=== PATIENT | male | born 1955 | race Caucasian/White ===

== ENCOUNTER 2019-04-01 10:07 | Outpatient (RCR) | payer MEDICAID, SELFPAY ==
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
== END 2019-04-01 10:10 | disposition home or self-care (01) ==
LOC: OT 10:07
PROVIDERS: Visit Provider Orthopaedic Surgery
DX: M25.511 Pain in right shoulder (principal)
CPT/HCPCS: 97165

== ENCOUNTER 2019-07-03 20:56 | Inpatient (IN) ==
[2019-07-03 21:34] LABS: Microscopic, Urine URINE MICROSCOPIC (MICROSCOPIC)
[2019-07-03 21:38] LABS: Basophils % 0.1 % (0.1-2.0); Eosinophils % 0.4 % (0.1-12.0); Hemoglobin 14.1 g/dL (14.1-18.0); Lymphocytes # 0.5 K/mm3 (0.7-4.5); Mean Corpuscular HGB Conc 34.5 g/dL (31.8-35.4); Mean Corpuscular Volume 92.6 fl (80-94); Mean Platelet Volume 7.6 fl (7.4-10.4); Monocytes # 0.2 K/mm3 (0.1-1.0); Monocytes % 2.5 % (1.7-9.3); Neutrophils # 6.5 K/mm3 (1.8-7.8); Platelet Count 261 K/mm3 (142-424); Red Blood Count 4.43 M/mm3 (4.60-6.20); Red Cell Distribution Width 12.3 % (11.5-17.5); White Blood Count 7.3 K/mm3 (4.8-10.8)
[2019-07-03 21:53] LABS: Albumin Level 3.3 gm/dL (3.4-5.0); Albumin/Globulin Ratio 0.8 (1.1-1.8); Anion Gap 16.3 mEq/L (5-15); Bilirubin,Total 1.4 mg/dL (0.2-1.0); Calcium 9.5 mg/dL (8.5-10.1); Globulin 4.1 gm/dl (1.3-3.2); Total Protein,Serum 7.4 gm/dL (6.4-8.2)
[2019-07-03 21:55] LABS: Appearance,Urine CLEAR (Clear); Bilirubin,Urine Negative (Negative); Blood, Urine 3+ (Negative); Color,Urine ORANGE (Yellow); Glucose,Urine (UA) 3+ (Negative); Ketones,Urine Negative (Negative); Leukocyte Esterase,Urine 1+ (Negative); Protein,Urine 2+ (Negative); Specific Gravity, Urine 1.015 (1.005-1.030)
--- NOTE | 2019-07-03 22:21 | Emergency Department Note ---
ED Disposition Clinical Impression: Hyperglycemia Sepsis Qualifiers: Sepsis type: sepsis due to unspecified organism Sepsis acute organ dysfunction status: without acute organ dysfunction Qualified Code(s): A41.9 - Sepsis, unspecified organism Urinary tract infection Qualifiers: Urinary tract infection type: site unspecified Hematuria presence: without hematuria Qualified Code(s): N39.0 - Urinary tract infection, site not specified Disposition: Admitted As Inpatient Condition on Discharge: Serious - Critical Care Critical Care Time: No Attestation: On 07/03/19, the high probability of a clinically significant, sudden or life threatening deterioration of the following system(s) required my full and direct attention, intervention and personal management. The time I documented below is in addition to time spent performing reported procedures but includes the following listed in this critical care notation. Medical Decision Making - Jcarlos Inquiry Pt receiving controlled substance: No Vital Signs: 07/03/19 21:04 07/03/19 22:14 07/03/19 23:09 Temperature 102.9 F H 100.0 F H Temperature Source Oral Oral Pulse Rate [Right Brachial] 125 H 109 H 106 H Respiratory Rate 22 20 18 Blood Pressure [Right Arm] 109/76 L 101/54 L 118/65 Blood Pressure Mean [Right Arm] 87 69 82 Blood Pressure Source [Right Arm] Automatic Cuff Automatic Cuff Automatic Cuff Blood Pressure Position [Right Arm] Sitting Sitting Sitting 02 Sat by Pulse Oximetry 95 95 95 Oxygen Delivery Method Room Air Room Air Room Air 07/03/19 23:30 07/04/19 00:35 Temperature 98.4 F 98.5 F Temperature Source Oral Oral Pulse Rate [Right Brachial] 54 L 97 H Respiratory Rate 18 18 Blood Pressure [Right Arm] 144/69 H 118/68 Blood Pressure Mean [Right Arm] 94 84 Blood Pressure Source [Right Arm] Automatic Cuff Blood Pressure Position [Right Arm] Sitting 02 Sat by Pulse Oximetry 99 95 Oxygen Delivery Method Room Air - Lab Data Lab Results 07/03/19 21:30: Urine Color [place], Urine Appearance Clear, Urine pH 8.0, Ur Specific [place] 1.015, Urine Protein 2+, Urine Glucose (UA) 3+, Urine Ketones Negative, Urine Blood 3+, Urine Nitrate Positive, Urine Bilirubin Negative, Urine Urobilinogen 1.0, Ur Leukocyte Esterase 1+ A, Urine RBC 5-10, Urine WBC Tntc, Urine Bacteria 3+ 07/03/19 21:30: WBC 7.3, RBC 4.43 L, Hgb 14.1, Hct 41.0 L, MCV 92.6, MCH 31.9 H, MCHC 34.5, RDW 12.3, Plt Count 261, MPV 7.6, Neut % (Auto) 90.0 H, Lymph % (Auto) 7.0 L, [place] % (Auto) 2.5, Eos % (Auto) 0.4, Baso % (Auto) 0.1, Neut # (Auto) 6.5, Lymph # (Auto) 0.5 L, [place] # (Auto) 0.2, Eos # (Auto) 0.0, Baso # (Auto) 0.0, Total Counted 100, Neutrophils % (Manual) 95 H, Lymphocytes % (Manual) 3 L, Eosinophils % (Manual) 1, Basophils % (Manual) 1.0, Platelet Estimate Normal, RBC Morphology Not Reportable, Anisocytosis 1+ 07/03/19 21:30: Sodium 134 L, Potassium 3.3 L, Chloride 97 L, Carbon Dioxide 24, Anion Gap 16.3 H, BUN 25 H, Creatinine 1.48 H, Estimated Creat Clear 78, Estimated GFR 48 L, Est GFR ( Amer) 58 L, Glucose 324 H, Calcium 9.5, Total Bilirubin 1.4 H, AST 28, ALT 36, Alkaline Phosphatase 178 H, Total Protein 7.4, Albumin 3.3 L, Globulin 4.1 H, Albumin/Globulin Ratio 0.8 L 07/03/19 21:30: Lactate 4.6 H 07/03/19 21:30: Troponin I < 0.02 Result diagrams: 07/03/19 21:30 07/03/19 21:30 Orders (Tests/Meds): ED MEDICATIONS Generic Name Dose Route Start Last Admin Trade Name Freq PRN Reason Stop Dose Admin Sodium Chloride 1,000 mls @ 999 mls/hr 07/03/19 21:30 07/03/19 21:31 Sod Chlor 0.9% 1000ml Bag IV 07/03/19 22:30 999 mls/hr .Q1H1M BEBE Administration Ceftriaxone Sodium 1 gm/ 50 mls @ 100 mls/hr 07/03/19 22:30 07/03/19 22:26 Sodium Chloride IV 07/17/19 22:29 Not Given Q24H BEBE Protocol Discontinued Medications Generic Name Dose Route Start Last Admin Trade Name Marleni PRN Reason Stop Dose Admin Acetaminophen 1,000 mg 07/03/19 21:30 07/03/19 21:31 Tylenol 500mg Tablet PO 07/03/19 21:31 1,000 mg ONCE ONE Administration Sodium Chloride 3,270 mls @ 1,635 mls/hr 07/03/19 22:06 07/03/19 22:14 Sod Chlor 0.9% 1000ml Bag 30 ml/kg infuse over 2 hr (3270 ml) 07/04/19 00:05 1,635 mls/hr IV Administration .Q2H ONE Ceftriaxone Sodium 1 gm/ 50 mls @ 100 mls/hr 07/03/19 22:21 07/03/19 22:26 Sodium Chloride IV 07/03/19 22:50 100 mls/hr ONCE ONE Administration Protocol Ibuprofen 800 mg 07/03/19 21:29 07/03/19 21:31 Motrin 400mg Tablet PO 07/03/19 21:30 800 mg ONCE ONE Administration ORDERS Category Date Time Status CT abdomen pelvis wo con Stat Cat Scan 07/03/19 22:34 Taken XR chest 2V Stat Exams 07/03/19 21:29 Taken Blood Culture Stat Micro 07/03/19 21:30 Received Urine Culture Stat Micro 07/03/19 21:30 Received - Radiology Data #1 Image(s): Chest Image Reviewed: Yes I reviewed the patient's radiology image Preliminary Findings: Normal/NAD - CT Data CT Scan: Abdomen, Pelvis Time Received: 23:[address] Reviewed: Yes: I have viewed the radiologist's interpretation Findings Narrative: CT scan interpreted by [facility] radiologist. Faxed report received and reviewed: Mild diffuse bladder wall thickening and mild perivesicular stranding can be seen with cystitis. Nonspecific mild bilateral perinephric stranding. Cholelithiasis. Hepatosplenomegaly. Enlarged prostate. - Physician Consults Physician Consulted: Tomas Time: 00:15 Reason -: Admission Comment/Response: Agrees to admit the patient to the hospital. We discussed the patient's clinical information, including history, exam, laboratory and radiology results and ED course. Per hospital procedure, I will write temporary bridge inpatient orders on the patient. Specific orders requested by the admitting physician: Continue fluids, antibiotics - Tissue Perfus/Sepsis Re-Eval Reperfusion Exam Performed: Yes Date Performed: 07/03/19 Time Performed: 23:57 Sepsis Follow-Up: Yes: Respiratory exam, Cardiovascular exam, Capillary refill, Peripheral pulse strength, Peripheral pulse location, Skin exam, Vital Signs General Adult HPI - General Chief complaint: Urogenital-Male Stated complaint: Fever, cold chills Time Seen by Provider: 07/03/19 22:20 Mode of Arrival: Wheelchair Limitations: No Limitations Description of Symptoms (Recalled from ER Triage Doc. by RN): Pt c/o fever and buring really bad pain when he urinates for about a month. He now states he is dizzy very unstable on his feet. Denies any other symptoms at this time. - History of Present Illness HPI narrative: Patient complains of difficulty urinating for several weeks. Since last week ago states that he finds it hard to urinate at all. He took Azo for couple of days which seemed to help. Today after taking a nap, he developed some severe rigors. Currently does not have any pain, says he "feels great". Does not currently have a physician. Surgery for colon and bladder cancer [facility] in 2009. - Related Data Home Medications Medication Instructions Recorded Confirmed No Known Home Medications 07/03/19 07/03/19 Allergies Allergy/AdvReac Type Severity Reaction Status Date / Time codeine [CODEINE] Allergy Mild Verified 03/21/19 13:28 levofloxacin [From LEVAQUIN] Allergy Mild Verified 03/21/19 13:28 [facility] History - Hepatitis A Screen Drug use history?: No High risk sexual behaviors?: No History of sexually transmitted infection?: No Currently employed?: No Childcare worker?: No Do you have indoor plumbing?: Yes Do you have electricity?: Yes Attestation statement:: This patient has been screened for Hepatitis A risk factors. I have reviewed the patient's past medical history: Yes Medical History: Reports:: Cancer Other Surgeries: Yes: Cancer Surgery - Social History Smoking Status: Never smoker Alcohol Intake: never Occupational Status: employed Housing: house ROS Obtained: Yes All systems reviewed & no additional complaints - Constitutional Constitutional: Reports chills - Cardiovascular Cardiovascular: Denies chest pain - Respiratory Respiratory: No dyspnea - Gastrointestinal Gastrointestingal: Reports: diarrhea, nausea, vomiting. Denies: abdominal pain - Genitourinary Male Genitourinary: Reports difficulty urinating, Denies flank pain - Neurologic Neurologic: Denies headache(s) Physical Exam - General General appearance: alert, in no apparent distress Comment: Diaphoretic - Head Head exam: atraumatic, normocephalic - ENT ENT exam: Present: mucous membranes moist - Neck Neck exam: Present: normal inspection, full ROM. Absent: meningismus - Chest Chest inspection: Present: normal inspection, symmetric chest wall rise - Respiratory Respiratory exam: Present: normal lung sounds bilaterally. Absent: respiratory distress - Cardiovascular Cardiovascular exam: Present: normal rhythm, tachycardia, normal heart sounds - Abdominal Exam Abdominal exam: Present: soft, normal bowel sounds. Absent: distention, tenderness, guarding, rebound Comment: Lower abdominal surgical scars - Extremities Exam Extremities exam: Present: normal inspection - Back Exam Back exam: Absent: CVA tenderness (R), CVA tenderness (L) - Neurological Exam Neurological exam: Present: alert, oriented X3 - Psychiatric Psychiatric exam: Present: normal affect, normal mood - Skin Skin exam: Present: warm, dry
[2019-07-03 22:46] LABS: Bacteria,Urine 3+ /lpf; WBC,Urine TNTC #/hpf (0-3)
[2019-07-03 23:06] LABS: Anisocytosis 1+; Eosinophils % 1 % (0-3); Lymphocytes % 3 % (10-50); Neutrophils % 95 % (42-76); Total Cells Counted 100
[2019-07-04 07:45] LABS: Basophils % 0.1 % (0.1-2.0); Eosinophils # 0.1 K/mm3 (0.0-0.4); Eosinophils % 0.6 % (0.1-12.0); Hematocrit 34.9 % (42.0-52.0); Lymphocytes # 0.7 K/mm3 (0.7-4.5); Lymphocytes % 6.2 % (10-50); Mean Corpuscular HGB Conc 33.5 g/dL (31.8-35.4); Mean Corpuscular Volume 95.6 fl (80-94); Mean Platelet Volume 8.3 fl (7.4-10.4); Monocytes # 0.6 K/mm3 (0.1-1.0); Monocytes % 5.1 % (1.7-9.3); Neutrophils # 10.1 K/mm3 (1.8-7.8); Platelet Count 189 K/mm3 (142-424); Red Blood Count 3.65 M/mm3 (4.60-6.20); Red Cell Distribution Width 12.7 % (11.5-17.5); White Blood Count 11.5 K/mm3 (4.8-10.8)
[2019-07-04 07:49] LABS: Anion Gap 10.6 mEq/L (5-15)
[2019-07-04 07:59] LABS: Hemoglobin 11.9 g/dL (14.1-18.0)
[2019-07-04 08:05] LABS: Calcium 8.1 mg/dL (8.5-10.1)
--- NOTE | 2019-07-04 08:10 | Pharmacy Consult Notes ---
[facility] Pharmacy VTE Monitoring - Patient Demographics Admission date: 07/03/19 Report Date: 07/04/19 Time: 08:09 Allergies/Adverse Reactions: Patient Allergies codeine [CODEINE] Allergy (Mild, Verified 03/21/19 13:28) levofloxacin [From LEVAQUIN] Allergy (Mild, Verified 03/21/19 13:28) Height: 1.75 m Weight: 105.885 kg Patient Problems: Current Active Problems Sepsis (Acute) Urinary tract infection (Acute) Hyperglycemia (Acute) - VTE Risk Labs: VTE Related Lab Results Hgb 11.9 g/dL (14.1-18.0) L D 07/04/19 07:18 Hct 34.9 % (42.0-52.0) L 07/04/19 07:18 Plt Count 189 K/mm3 (142-424) D 07/04/19 07:18 BUN 22 mg/dL (7-18) H 07/04/19 07:18 Creatinine 1.02 mg/dL (0.70-1.30) D 07/04/19 07:18 Estimated Creat Clear 110 mL/min (50-200) 07/04/19 07:18 VTE Score: 4 VTE Risk Level: Low Risk - Prophylaxis VTE Prophylaxis Ordered?: Yes Types of VTE Prophylaxis: TEDS Knee High Location of Applied Device: Bilateral Lower Extremeties - VTE Diagnosis Confirmed Treatment or plan recommended: Continue Current Treatment
[2019-07-04 08:24] LABS: Lymphocytes % 9 % (10-50); Monocytes % 4 % (2-9); Neutrophils % 86 % (42-76); RBC Morphology Normal; Total Cells Counted 100
--- NOTE | 2019-07-04 08:40 | H&P/Discharge Summary ---
General - General Admission date:: 07/04/19 Discharge date: 07/04/19 *Admission Date: 07/03/19 *Chief complaint: Fever/abdominal pain/difficulty urinating *History of present illness: 64-year-old white male with history of colon and partial bladder resection 10 years ago at [facility] for colon cancer. He did well for 5 years of follow-up, but was then lost to follow-up because he retired from his [employer] job and did not have insurance coverage. Since that time he has not seen a physician. 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 Over the last 48 hours he is been feeling poorly, and has had nausea, vomiting, diminished p.o. intake, cloudy urine. These were accompanied with fevers and myalgias. To the emergency department, was febrile, elevated lactate level, found to have evidence of urinary tract infection, was admitted for sepsis, and treatment of the infection. This morning he is feeling "110% better." [facility] History I have reviewed the patient's past medical history: Yes Medical History: Reports:: Cancer Denies:: Diabetes Mellitus Type 1, Diabetes Mellitus Type 2, MRSA *Have you ever received a pneumonia vaccine?: No *Have you received a flu vaccine this season?: No Other Surgeries: Yes: Cancer Surgery, Colonoscopy, Colon Resection, EGD Amputation: No Fractures: Yes (FINGERS,ANKLE,TOES) - *Social History Educational Level: Attended College Smoking Status: Never smoker Alcohol Intake: never *Occupational Status:: employed Housing: house Household Members: significant other *Travel in the last 8 weeks: None - Psychiatric History Expresses thoughts of harming self/others: None Suicide Plan Description: No Plan Family Hx:: No significant family history Review of Systems - Review of Systems Review of systems:: pertinent systems reviewed and negative unless documented below See HPI for review of systems on admission. Currently review of systems is negative, including cardiac, pulmonary, GI issues. He does admit to slight hesitancy with urination. Does admit to minimal osteoarthritic joint pain of knees and hips. Otherwise denies rashes or ENT symptoms. - *Neurologic Denies headache(s) Exam Vital signs and Labs for Last 24 Hours: Temp Pulse Resp BP Pulse Ox 97.9 F 91 H 18 110/66 97 07/04/19 08:00 07/04/19 08:00 07/04/19 08:00 07/04/19 08:00 07/04/19 08:00 Laboratory Results - last 24 hr 07/03/19 21:30: Urine Color [place], Urine Appearance Clear, Urine pH 8.0, Ur Specific [place] 1.015, Urine Protein 2+, Urine Glucose (UA) 3+, Urine Ketones Negative, Urine Blood 3+, Urine Nitrate Positive, Urine Bilirubin Negative, Urine Urobilinogen 1.0, Ur Leukocyte Esterase 1+ A, Urine RBC 5-10, Urine WBC Tntc, Urine Bacteria 3+ 07/03/19 21:30: WBC 7.3, RBC 4.43 L, Hgb 14.1, Hct 41.0 L, MCV 92.6, MCH 31.9 H, MCHC 34.5, RDW 12.3, Plt Count 261, MPV 7.6, Neut % (Auto) 90.0 H, Lymph % (Auto) 7.0 L, [place] % (Auto) 2.5, Eos % (Auto) 0.4, Baso % (Auto) 0.1, Neut # (Auto) 6.5, Lymph # (Auto) 0.5 L, [place] # (Auto) 0.2, Eos # (Auto) 0.0, Baso # (Auto) 0.0, Total Counted 100, Neutrophils % (Manual) 95 H, Lymphocytes % (Manual) 3 L, Eosinophils % (Manual) 1, Basophils % (Manual) 1.0, Platelet Estimate Normal, RBC Morphology Not Reportable, Anisocytosis 1+ 07/03/19 21:30: Sodium 134 L, Potassium 3.3 L, Chloride 97 L, Carbon Dioxide 24, Anion Gap 16.3 H, BUN 25 H, Creatinine 1.48 H, Estimated Creat Clear 78, Estimated GFR 48 L, Est GFR ( Amer) 58 L, Glucose 324 H, Calcium 9.5, Total Bilirubin 1.4 H, AST 28, ALT 36, Alkaline Phosphatase 178 H, Total Protein 7.4, Albumin 3.3 L, Globulin 4.1 H, Albumin/Globulin Ratio 0.8 L 07/03/19 21:30: Lactate 4.6 H 07/03/19 21:30: Troponin I < 0.02 07/04/19 01:35: Lactate 1.6 07/04/19 06:19: POC Glucose 280 H 07/04/19 07:18: WBC 11.5 H D, RBC 3.65 L, Hgb 11.9 L D, Hct 34.9 L, MCV 95.6 H, MCH 32.1 H, MCHC 33.5, RDW 12.7, Plt Count 189 D, MPV 8.3, Neut % (Auto) 88.0 H , Lymph % (Auto) 6.2 L, [place] % (Auto) 5.1, Eos % (Auto) 0.6, Baso % (Auto) 0.1, Neut # (Auto) 10.1 H, Lymph # (Auto) 0.7, [place] # (Auto) 0.6, Eos # (Auto) 0.1, Baso # (Auto) 0.0, Total Counted 100, Neutrophils % (Manual) 86 H, Band Neutrophils % 1.0, Lymphocytes % (Manual) 9 L, Monocytes % (Manual) 4, Platelet Estimate Normal, RBC Morphology Normal 07/04/19 07:18: Sodium 138, Potassium 3.6, Chloride 103, Carbon Dioxide 28, Anion Gap 10.6, BUN 22 H, Creatinine 1.02 D, Estimated Creat Clear 110, Estimated GFR 74, Est GFR ( Amer) 89 D, Glucose 256 H D, Calcium 8.1 L D 07/04/19 07:18: Hemoglobin A1c 10.7 H I & O for Last 24 hours: Intake & Output 07/01/19 07/02/19 07/03/19 07/04/19 11:59 11:59 11:59 11:59 Intake Total 4231 / 4231 Balance 4231 / 4231 Weight 233 lb 7 oz Microbiology Reports for the Last 24 Hours: Microbiology 07/03/19 21:30 Urine,Clean Catch Urine Culture - Preliminary Narrative: Pleasant, obese. Alert, oriented x3. ENT negative. No JVD. Oropharynx clear. Lungs have good air movement. Heart rate regular. Abdomen obese but soft. Good distal perfusion. Moves all extremities well. Cranial nerves intact. Prostate exam is 60 g, tender, no masses, boggy. Hospital Course Hospital Course: Patient was admitted, treated with antibiotics, treated with IV fluids. This morning feels much better. Clinically consistent with UTI from prostatitis. Patient will be discharged today on Ceftin ear, tamsulosin and cultures will be watched. He does clearly have new onset diabetes. I will discharge him on metformin and Steglatro, with close follow-up in my office on Sunday studies. Results Labs on day of discharge: Labs from last 24 hours 07/04/19 07/04/19 07/04/19 07:18 07:18 07:18 WBC 11.5 H D RBC 3.65 L Hgb 11.9 L D Hct 34.9 L MCV 95.6 H MCH 32.1 H MCHC 33.5 RDW 12.7 Plt Count 189 D MPV 8.3 Neut % (Auto) 88.0 H Lymph % (Auto) 6.2 L [place] % (Auto) 5.1 Eos % (Auto) 0.6 Baso % (Auto) 0.1 Neut # (Auto) 10.1 H Lymph # (Auto) 0.7 [place] # (Auto) 0.6 Eos # (Auto) 0.1 Baso # (Auto) 0.0 Total Counted 100 Neutrophils % (Manual) 86 H Band Neutrophils % 1.0 Lymphocytes % (Manual) 9 L Monocytes % (Manual) 4 Eosinophils % (Manual) Basophils % (Manual) Platelet Estimate Normal RBC Morphology Normal Anisocytosis Sodium 138 Potassium 3.6 Chloride 103 Carbon Dioxide 28 Anion Gap 10.6 BUN 22 H Creatinine 1.02 D Estimated Creat Clear 110 Estimated GFR 74 Est GFR ( Amer) 89 D Glucose 256 H D POC Glucose Hemoglobin A1c 10.7 H Lactate Calcium 8.1 L D Total Bilirubin AST ALT Alkaline Phosphatase Troponin I Total Protein Albumin Globulin Albumin/Globulin Ratio Urine Color Urine Appearance Urine pH Ur Specific [place] Urine Protein Urine Glucose (UA) Urine Ketones Urine Blood Urine Nitrate Urine Bilirubin Urine Urobilinogen Ur Leukocyte Esterase Urine RBC Urine WBC Urine Bacteria 07/04/19 07/04/19 07/03/19 06:19 01:35 21:30 WBC RBC Hgb Hct MCV MCH MCHC RDW Plt Count MPV Neut % (Auto) Lymph % (Auto) [place] % (Auto) Eos % (Auto) Baso % (Auto) Neut # (Auto) Lymph # (Auto) [place] # (Auto) Eos # (Auto) Baso # (Auto) Total Counted Neutrophils % (Manual) Band Neutrophils % Lymphocytes % (Manual) Monocytes % (Manual) Eosinophils % (Manual) Basophils % (Manual) Platelet Estimate RBC Morphology Anisocytosis Sodium Potassium Chloride Carbon Dioxide Anion Gap BUN Creatinine Estimated Creat Clear Estimated GFR Est GFR ( Amer) Glucose POC Glucose 280 H Hemoglobin A1c Lactate 1.6 Calcium Total Bilirubin AST ALT Alkaline Phosphatase Troponin I < 0.02 Total Protein Albumin Globulin Albumin/Globulin Ratio Urine Color Urine Appearance Urine pH Ur Specific [place] Urine Protein Urine Glucose (UA) Urine Ketones Urine Blood Urine Nitrate Urine Bilirubin Urine Urobilinogen Ur Leukocyte Esterase Urine RBC Urine WBC Urine Bacteria 07/03/19 07/03/19 07/03/19 21:30 21:30 21:30 WBC 7.3 RBC 4.43 L Hgb 14.1 Hct 41.0 L MCV 92.6 MCH 31.9 H MCHC 34.5 RDW 12.3 Plt Count 261 MPV 7.6 Neut % (Auto) 90.0 H Lymph % (Auto) 7.0 L [place] % (Auto) 2.5 Eos % (Auto) 0.4 Baso % (Auto) 0.1 Neut # (Auto) 6.5 Lymph # (Auto) 0.5 L [place] # (Auto) 0.2 Eos # (Auto) 0.0 Baso # (Auto) 0.0 Total Counted 100 Neutrophils % (Manual) 95 H Band Neutrophils % Lymphocytes % (Manual) 3 L Monocytes % (Manual) Eosinophils % (Manual) 1 Basophils % (Manual) 1.0 Platelet Estimate Normal RBC Morphology Not Reportable Anisocytosis 1+ Sodium 134 L Potassium 3.3 L Chloride 97 L Carbon Dioxide 24 Anion Gap 16.3 H BUN 25 H Creatinine 1.48 H Estimated Creat Clear 78 Estimated GFR 48 L Est GFR ( Amer) 58 L Glucose 324 H POC Glucose Hemoglobin A1c Lactate 4.6 H Calcium 9.5 Total Bilirubin 1.4 H AST 28 ALT 36 Alkaline Phosphatase 178 H Troponin I Total Protein 7.4 Albumin 3.3 L Globulin 4.1 H Albumin/Globulin Ratio 0.8 L Urine Color Urine Appearance Urine pH Ur Specific [place] Urine Protein Urine Glucose (UA) Urine Ketones Urine Blood Urine Nitrate Urine Bilirubin Urine Urobilinogen Ur Leukocyte Esterase Urine RBC Urine WBC Urine Bacteria 07/03/19 21:30 WBC RBC Hgb Hct MCV MCH MCHC RDW Plt Count MPV Neut % (Auto) Lymph % (Auto) [place] % (Auto) Eos % (Auto) Baso % (Auto) Neut # (Auto) Lymph # (Auto) [place] # (Auto) Eos # (Auto) Baso # (Auto) Total Counted Neutrophils % (Manual) Band Neutrophils % Lymphocytes % (Manual) Monocytes % (Manual) Eosinophils % (Manual) Basophils % (Manual) Platelet Estimate RBC Morphology Anisocytosis Sodium Potassium Chloride Carbon Dioxide Anion Gap BUN Creatinine Estimated Creat Clear Estimated GFR Est GFR ( Amer) Glucose POC Glucose Hemoglobin A1c Lactate Calcium Total Bilirubin AST ALT Alkaline Phosphatase Troponin I Total Protein Albumin Globulin Albumin/Globulin Ratio Urine Color [place] Urine Appearance Clear Urine pH 8.0 Ur Specific [place] 1.015 Urine Protein 2+ Urine Glucose (UA) 3+ Urine Ketones Negative Urine Blood 3+ Urine Nitrate Positive Urine Bilirubin Negative Urine Urobilinogen 1.0 Ur Leukocyte Esterase 1+ A Urine RBC 5-10 Urine WBC Tntc Urine Bacteria 3+ Preliminary micro results at discharge 07/03/19 21:30 Urine Culture - Preliminary Urine,Clean Catch DS: Diagnosis - Discharge Diagnosis (1) Prostatitis Status: Acute (2) BPH (benign prostatic hyperplasia) Status: Chronic (3) Diabetes mellitus type 2 in obese Status: Chronic (4) Obesity Status: Chronic (5) Sepsis Status: Resolved (6) Urinary tract infection Status: Acute Discharge Plan - Patient Discharge Instructions ACTIVITY: Continue current activity DIET: continue same diet, diabetic diet Patient Instructions: DI for Urinary Tract Infection (UTI), DI for Hyperglycemia -- Adult, DI for Sepsis -- Adult - Follow up Plan Follow up with: Rafita Javier MD [Staff Physician] - 07/09/19 Disposition: Home, Self-Jail Medications: Home Medications Medication Instructions Recorded Confirmed Type No Known Home Medications 07/03/19 07/03/19 History Cefdinir [Omnicef 300mg Capsule] 300 mg PO BID #14 cap 07/04/19 Rx Ertugliflozin Pidolate [Steglatro] 5 mg PO DAILY #30 tab 07/04/19 Rx Metformin HCl [Metformin HCl ER] 500 mg PO DAILY #30 tab.er.24h 07/04/19 Rx Tamsulosin HCl [Flomax 0.4mg 0.4 mg PO HS #30 cap.er.24h 07/04/19 Rx capsule] Prescriptions/Medication Reconciliation: New Metformin HCl [Metformin HCl ER] 500 mg PO DAILY #30 tab.er.24h Cefdinir [Omnicef 300mg Capsule] 300 mg PO BID #14 cap Ertugliflozin Pidolate [Steglatro] 5 mg PO DAILY #30 tab Tamsulosin HCl [Flomax 0.4mg capsule] 0.4 mg PO HS #30 cap.er.24h No Action No Known Home Medications - Problem Reconciliation Problems Reviewed?: Yes
--- NOTE | 2019-07-05 07:52 | Electrocardiograph Report ---
APPROVED REPORT Exam: Resting ECG HR:113 bpm ECG Measurements Heart Rate 113 AXES DC 138 P 2 QRSd 86 QRS 12 QT 340 T9 QTc 466 <Conclusion> Sinus tachycardia with premature supraventricular complexes Otherwise normal ECG Electronically signed by : Rafita Javier, 07/05/2019 07:52:18
== END 2019-07-04 10:49 | disposition home or self-care (01) | DRG 690 ==
LOC: 2ND 20:56 → ER 20:56 → OBSVTOIN 07-04 01:15 → 2ND 07-04 01:19
PROVIDERS: ADMIT Internal Medicine Adolescent Medicine; ATTEND Internal Medicine Adolescent Medicine

== ENCOUNTER → 2019-07-18 12:40 | Outpatient (CLI) | payer MEDICAID, SELFPAY ==
[2019-07-18 12:52] LABS: Microscopic, Urine URINE MICROSCOPIC (MICROSCOPIC)
[2019-07-18 13:39] LABS: Appearance,Urine CLOUDY (Clear); Bilirubin,Urine Negative (Negative); Blood, Urine TRACE-I (Negative); Color,Urine YELLOW (Yellow); Glucose,Urine (UA) 3+ (Negative); Ketones,Urine Negative (Negative); Leukocyte Esterase,Urine 1+ (Negative); Nitrate,Urine POSITIVE (Negative); Protein,Urine Negative (Negative); Specific Gravity, Urine 1.025 (1.005-1.030); Urobilinogen,Urine 0.2 EU/dl (0.2)
[2019-07-18 14:11] LABS: WBC,Urine TNTC #/hpf (0-3)
== END ==
PROVIDERS: Visit Provider Internal Medicine Adolescent Medicine
DX: R30.0 Dysuria (principal)
CPT/HCPCS: 81001; 87086; 87088; 87186

== ENCOUNTER → 2019-08-28 10:55 | Outpatient (CLI) | payer OTHER, SELFPAY ==
[2019-08-29 07:41] LABS: PSA, Free 0.67 ng/mL; Prostate Specific Ag 4.4 ng/mL (0.0-4.0)
== END ==
PROVIDERS: Visit Provider Urology
DX: N40.0 Benign prostatic hyperplasia without lower urinary tract symptoms (principal); N39.0 Urinary tract infection, site not specified
CPT/HCPCS: 36415; 84153; 84154; 87086; 87088; 87186

== ENCOUNTER 2020-06-06 16:15 | Emergency (ER) | payer MEDICARE, OTHER, SELFPAY ==
[2020-06-06 16:25] VITALS: BP 124/74; PULSE 104; RESP 18; TEMP 36.8; O2SAT 95; BMI 34.9
[2020-06-06 16:37] LABS: Microscopic, Urine URINE MICROSCOPIC (MICROSCOPIC)
[2020-06-06 16:38] LABS: Appearance,Urine CLOUDY (Clear); Bilirubin,Urine Negative (Negative); Blood, Urine 1+ (Negative); Color,Urine YELLOW (Yellow); Glucose,Urine (UA) 3+ (Negative); Ketones,Urine Negative (Negative); Leukocyte Esterase,Urine TRACE (Negative); Nitrate,Urine Negative (Negative); PH,Urine 5.5 (5.0-8.5); Protein,Urine Negative (Negative); Urobilinogen,Urine 0.2 EU/dl (0.2)
[2020-06-06 16:49] LABS: Bacteria,Urine 1+ /lpf; WBC,Urine 20-50 #/hpf (0-3); Yeast,Urine 3+ /lpf
--- NOTE | 2020-06-06 16:53 | HMH.EDGENADL ---
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 Please take nitrofurantoin as prescribed. Your blood sugar was significantly elevated today, consistent with type 2 diabetes. Please follow-up with your primary care doctor in 1 to 2 days to discuss diabetes management. Avoid sugary foods and high carbohydrate foods. Drink water. Return to the emergency department if you have any new or worsening symptoms, vomiting, shortness of breath, other concerns. Prescriptions: Nitrofurantoin Monohyd/M-Cryst [Nitrofurantoin Cotton-Mcr 100 mg] 100 mg PO BID 5 Days #10 cap Transmission Status: Pending to [facility] #[id number] Referrals: Rafita Javier MD [Primary Care Provider] - Time of Disposition: 18:10 - Critical Care Critical Care Time: No Attestation: On 06/06/20, the high probability of a clinically significant, sudden or life threatening deterioration of the following system(s) required my full and direct attention, intervention and personal management. The time I documented below is in addition to time spent performing reported procedures but includes the following listed in this critical care notation. Medical Decision Making - Medical Records Medical records reviewed: Yes: I reviewed the patient's medical records. - Jcarlos Inquiry Pt receiving controlled substance: No Vital Signs: 06/06/20 16:25 06/06/20 17:01 06/06/20 17:23 Temperature 98.2 F Temperature Source Oral Pulse Rate [Left Radial] 104 H 94 H 89 Respiratory Rate 18 18 Blood Pressure [Left Arm] 124/74 117/75 117/75 Blood Pressure Mean [Left Arm] 90 89 89 Blood Pressure Source [Left Arm] Automatic Cuff Automatic Cuff Automatic Cuff Blood Pressure Position [Left Arm] Sitting Sitting Sitting 02 Sat by Pulse Oximetry 95 95 94 L Oxygen Delivery Method Room Air Room Air Room Air 06/06/20 18:06 Temperature Temperature Source Pulse Rate [Left Radial] 85 Respiratory Rate Blood Pressure [Left Arm] 126/71 Blood Pressure Mean [Left Arm] 89 Blood Pressure Source [Left Arm] Automatic Cuff Blood Pressure Position [Left Arm] Sitting 02 Sat by Pulse Oximetry 95 Oxygen Delivery Method Room Air - Lab Data Lab Results 06/06/20 16:30: Urine Color Yellow, Urine Appearance Cloudy, Urine pH 5.5, Ur Specific [place] 1.020, Urine Protein Negative, Urine Glucose (UA) 3+, Urine Ketones Negative, Urine Blood 1+, Urine Nitrate Negative, Urine Bilirubin Negative, Urine Urobilinogen 0.2, Ur Leukocyte Esterase Trace, Urine RBC 5-10, Urine WBC 20-50, Ur Squamous Epith Cells 5-10, Urine Bacteria 1+, Urine Yeast 3+ 06/06/20 16:54: WBC 11.4 H, RBC 4.72, Hgb 15.6, Hct 44.4, MCV 94.0, MCH 33.1 H, MCHC 35.2, RDW 13.1, Plt Count 145, MPV 7.8, Neut % (Auto) 93.5 H, Lymph % (Auto) 2.3 L, Cotton % (Auto) 3.2, Eos % (Auto) 0.9, Baso % (Auto) 0.2, Neut # (Auto) 10.7 H, Lymph # (Auto) 0.3 L, Cotton # (Auto) 0.4, Eos # (Auto) 0.1, Baso # (Auto) 0.0, Total Counted 100, Neutrophils % (Manual) 88 H, Lymphocytes % (Manual) 7 L, Monocytes % (Manual) 3, Eosinophils % (Manual) 2, Platelet Estimate Normal, RBC Morphology M 06/06/20 16:54: Sodium 128 L, Potassium 4.4, Chloride 93 L, Carbon Dioxide 27, Anion Gap 12.4, BUN 22 H, Creatinine 0.70, Estimated Creat Clear 112, Estimated GFR 113, Est GFR ( Amer) 137, Glucose 475 H*, Calcium 9.2 06/06/20 16:54: Lactate 1.3 06/06/20 16:54: Acetone Level None detec
[2020-06-06 17:01] VITALS: BP 117/75; PULSE 94; RESP 18; O2SAT 95
[2020-06-06 17:06] LABS: Basophils % 0.2 % (0.1-2.0); Eosinophils # 0.1 K/mm3 (0.0-0.4); Eosinophils % 0.9 % (0.1-12.0); Hematocrit 44.4 % (42.0-52.0); Hemoglobin 15.6 g/dL (14.1-18.0); Lymphocytes # 0.3 K/mm3 (0.7-4.5); Lymphocytes % 2.3 % (10-50); Mean Corpuscular HGB Conc 35.2 g/dL (31.8-35.4); Mean Corpuscular Hemoglobin 33.1 pg (27.0-31.2); Mean Platelet Volume 7.8 fl (7.4-10.4); Monocytes # 0.4 K/mm3 (0.1-1.0); Monocytes % 3.2 % (1.7-9.3); Neutrophils # 10.7 K/mm3 (1.8-7.8); Neutrophils % 93.5 % (37.0-80.0); Platelet Count 145 K/mm3 (142-424); Red Blood Count 4.72 M/mm3 (4.60-6.20); Red Cell Distribution Width 13.1 % (11.5-17.5); White Blood Count 11.4 K/mm3 (4.8-10.8)
[2020-06-06 17:09] LABS: Chloride 93 mmol/L (98-107); Potassium 4.4 mmoL/L (3.5-5.1); Sodium 128 mmol/L (136-145)
[2020-06-06 17:10] LABS: MANUAL DIFFERENTIAL MANUAL DIFFERENTIAL (MANUAL DIFF)
[2020-06-06 17:12] LABS: Anion Gap 12.4 mEq/L (5-15); Blood Urea Nitrogen 22 mg/dl (9-20); Carbon Dioxide 27 mmol/L (22.0-30.0); Creatinine Clearance Estimated 112 mL/min (50-200); Estimated Glomerular Filt Rate 113 ml/min (>60); GFR (African American) 137 ML/MIN (>60)
[2020-06-06 17:13] LABS: Calcium 9.2 mg/dl (8.4-10.2); Lactic Acid 1.3 mmol/L (0.7-2.1)
[2020-06-06 17:15] LABS: Glucose 475 mg/dl (74-100)
--- NOTE | 2020-06-06 17:15 | PC.NURSE ---
notified ER of critical glucose called by lab
--- NOTE | 2020-06-06 17:16 | PC.NURSE ---
notified RT of vbg order
[2020-06-06 17:22] LABS: Eosinophils % 2 % (0-3); Lymphocytes % 7 % (10-50); Monocytes % 3 % (2-9); Neutrophils % 88 % (42-76); Platelet Estimate Normal; RBC Morphology M; Total Cells Counted 100
--- NOTE | 2020-06-06 17:22 | PC.NURSE ---
pt reports he has been taking Dexamethasone ( 1/4 cc ), banomine and penicillin by mouth for approx 1 week r/t previous dental extraction, notified ER
[2020-06-06 17:23] VITALS: BP 117/75; PULSE 89; O2SAT 94
[2020-06-06 17:25] LABS: VBG Base Excess -1.2 mmol/L (-2.4-2.3); VBG HCO3 23.5 mmol/L (23-30); VBG Oxygen Saturation 90.7 % (50-70); VBG PCO2 38.7 mmol/L (35-51); VBG PO2 60.4 mmol/L (28-40); VBG Total CO2 24.7 mmol/L (23-27)
[2020-06-06 17:25] LABS: Acetone, Serum (Rapid) None Detected (None Detect)
[2020-06-06 18:06] VITALS: BP 126/71; PULSE 85; O2SAT 95
[2020-06-06 18:41] VITALS: BP 120/73; PULSE 89; RESP 18; TEMP 36.8; O2SAT 90
== END 2020-06-06 18:42 | disposition home or self-care (01) ==
PROVIDERS: Emergency Provider Emergency Medicine; PCP Internal Medicine Adolescent Medicine
DX: N30.00 Acute cystitis without hematuria (principal); E11.65 Type 2 diabetes mellitus with hyperglycemia; Z79.84 Long term (current) use of oral hypoglycemic drugs; E66.9 Obesity, unspecified; Z68.34 Body mass index [BMI] 34.0-34.9, adult; Z85.038 Personal history of other malignant neoplasm of large intestine; Z88.1 Allergy status to other antibiotic agents; Z88.5 Allergy status to narcotic agent
CPT/HCPCS: 80048; 81001; 82009; 82803; 83605; 85007; 85025; 87040; 87086; 96365; 99284

== ENCOUNTER → 2020-10-14 15:33 | Outpatient (CLI) | payer MEDICARE, OTHER, SELFPAY | PROVIDERS: Visit Provider Urology | DX: N39.0 Urinary tract infection, site not specified (principal) | CPT/HCPCS: 87086; 87088 ==

== ENCOUNTER 2020-11-18 15:34 | Inpatient (IN) | payer MEDICARE, OTHER, SELFPAY ==
[2020-11-18] VITALS (7 sets, daily range): BP systolic 129–163; BP diastolic 72–98; PULSE 74–92; RESP 15–22; TEMP 36.6–37.5; O2SAT 86–98; BMI 34.0; BMI 33.0
--- NOTE | 2020-11-18 15:55 | XR_ITS ---
PROCEDURE: XR CHEST PORTABLE CLINICAL HISTORY: soa Shortness of air cough and congestion, Covid19 exposure COMPARISON: No exams were available for comparison FINDINGS: Low lung volumes. Patchy infiltrates in both upper and lower lobes consistent with bilateral pneumonia which may be related to Covid19 pneumonia. No acute bony findings. Low lung volumes with elevated hemidiaphragms. IMPRESSION: Bilateral pneumonia with low lung volumes Dictated by: Mauri Valenzuela MD 11/18/2020 16:18 Mauri Valenzueal MD in [place] 11/18/2020 16:18
--- NOTE | 2020-11-18 16:16 | HMH.EDGENADL ---
ED Disposition Clinical Impression: Pneumonia due to COVID-19 virus Respiratory failure with hypoxia Qualifiers: Chronicity: acute Qualified Code(s): J96.01 - Acute respiratory failure with hypoxia Disposition: Admitted As Inpatient Condition on Discharge: Serious - Critical Care Critical Care Time: Yes Attestation: On 11/18/20, the high probability of a clinically significant, sudden or life threatening deterioration of the following system(s) required my full and direct attention, intervention and personal management. The time I documented below is in addition to time spent performing reported procedures but includes the following listed in this critical care notation. Total Critical Care Time: 30 Vital system(s) involved:: Respiratory Failure My critical care processes included: Assessment & monitoring of V/S, Initial and Re-exams, Data Review/Interpretation, Coordinating Care, Medication Orders and management, Documentation Medical Decision Making - Jcarlos Inquiry Pt receiving controlled substance: No Vital Signs: 11/18/20 15:35 11/18/20 15:37 Temperature 99.5 F Temperature Source Oral Pulse Rate [Left Radial] 92 H Respiratory Rate 20 Blood Pressure [Right Arm] 143/72 H Blood Pressure Mean [Right Arm] 95 Blood Pressure Source [Right Arm] Automatic Cuff Blood Pressure Position [Right Arm] Sitting 02 Sat by Pulse Oximetry 86 L 91 L Oxygen Delivery Method Room Air Nasal Cannula Oxygen Flow Rate (LPM) 4 - Lab Data Lab results reviewed: Yes: I reviewed the patient's lab results. Lab Results 11/18/20 16:03: Troponin I < 0.01 11/18/20 16:03: WBC 8.5, RBC 5.19, Hgb 16.6, Hct 47.0, MCV 90.6, MCH 32.0 H, MCHC 35.3, RDW 13.6, Plt Count 145, MPV 8.7, Neut % (Auto) 89.6 H, Lymph % (Auto) 6.1 L, [place] % (Auto) 3.9, Eos % (Auto) 0.1, Baso % (Auto) 0.4, Neut # (Auto) 7.6, Lymph # (Auto) 0.5 L, [place] # (Auto) 0.3, Eos # (Auto) 0.0, Baso # (Auto) 0.0, Total Counted 100, Neutrophils % (Manual) 90 H, Lymphocytes % (Manual) 5 L, Monocytes % (Manual) 3, Eosinophils % (Manual) 2, Platelet Estimate Normal, RBC Morphology Normal 11/18/20 16:03: Lactate 1.3 11/18/20 16:03: Sodium 129 L, Potassium 4.1, Chloride 93 L, Carbon Dioxide 26, Anion Gap 14.1, BUN 19, Creatinine 0.70, Estimated Creat Clear 109, Estimated GFR 113, Est GFR ( Amer) 137, Glucose 287 H, Calcium 8.9 11/18/20 16:03: SARS-CoV-2 IgG Ab (Rapid) Positive A, SARS-CoV-2 IgM Ab (Rapid) Negative 11/18/20 16:03: Procalcitonin 0.165 11/18/20 16:20: Chlamy pneumoniae PCR Not detected, Adenovirus (PCR) Not detected, B. pertussis DNA (PCR) Not detected, Coronavirus OC43 (PCR) Not detected, Coronavirus HKU1 (PCR) Not detected, Coronavirus 229E (PCR) Not detected, SARS-CoV-2 (PCR) Detected A, Coronavirus NL63 (PCR) Not detected, Human Metapneumovir PCR Not detected, Influenza A (H1) PCR Not detected, Influ A (H1N1/09) PCR Not detected, Influenza A (H3) PCR Not detected, Influenza Type A (PCR) Not detected, Influenza Type B (PCR) Not detected, M. pneumoniae (PCR) Not detected, Parainfluenza 1 (PCR) Not detected, Parainfluenza 2 (PCR) Not detected, Parainfluenza 3 (PCR) Not detected, Parainfluenza 4 (PCR) Not detected, RSV (PCR) Not detected, Entero/Rhino (PCR) Not detected Result diagrams: 11/18/20 16:03 11/18/20 16:03 Orders (Tests/Meds): ORDERS Category Date Time Status Troponin I Q3H Lab 11/18/20 19:00 Ordered Troponin I Q3H Lab 11/18/20 22:00 Ordered Blood Culture Stat Micro 11/18/20 15:56 Received - Radiology Data #1 Image(s): Chest Image Reviewed: Yes I reviewed the patient's radiology image, Yes I have reviewed radiologist's interpretation PROCEDURE: XR CHEST PORTABLE CLINICAL HISTORY: soa Shortness of air cough and congestion, Covid19 exposure COMPARISON: No exams were available for comparison FINDINGS: Low lung volumes. Patchy infiltrates in both upper and lower lobes consistent with bilateral pneumonia which may be relat
[2020-11-18 16:24] LABS: Basophils % 0.4 % (0.1-2.0); Eosinophils % 0.1 % (0.1-12.0); Hemoglobin 16.6 g/dL (14.1-18.0); Lymphocytes # 0.5 K/mm3 (0.7-4.5); Lymphocytes % 6.1 % (10-50); Mean Corpuscular HGB Conc 35.3 g/dL (31.8-35.4); Mean Corpuscular Volume 90.6 fl (80-94); Mean Platelet Volume 8.7 fl (7.4-10.4); Monocytes # 0.3 K/mm3 (0.1-1.0); Monocytes % 3.9 % (1.7-9.3); Neutrophils # 7.6 K/mm3 (1.8-7.8); Neutrophils % 89.6 % (37.0-80.0); Platelet Count 145 K/mm3 (142-424); Red Blood Count 5.19 M/mm3 (4.60-6.20); Red Cell Distribution Width 13.6 % (11.5-17.5); White Blood Count 8.5 K/mm3 (4.8-10.8)
[2020-11-18 16:25] LABS: MANUAL DIFFERENTIAL MANUAL DIFFERENTIAL (MANUAL DIFF)
[2020-11-18 16:28] LABS: Lactic Acid 1.3 mmol/L (0.7-2.1)
--- NOTE | 2020-11-18 16:30 | ECG_ITS ---
APPROVED REPORT Exam: Resting ECG HR:88 bpm ECG Measurements Heart Rate 88 AXES TX 142 P 19 QRSd 78 QRS 4 QT 360 T 50 QTc 435 Conclusion Sinus rhythm with premature supraventricular complexes Otherwise normal ECG Electronically signed by : Rafita Javier, 11/19/2020 06:00:26
[2020-11-18 16:31] LABS: Eosinophils % 2 % (0-3); Lymphocytes % 5 % (10-50); Monocytes % 3 % (2-9); Neutrophils % 90 % (42-76); Platelet Estimate Normal; RBC Morphology Normal; Total Cells Counted 100
[2020-11-18 16:37] LABS: Adenovirus,PCR Not Detected (NotDetected); Bordetella Pertussis Not Detected (NotDetected); Chlamydophila Pneumoniae, PCR Not Detected (NotDetected); Coronavirus 229E Not Detected (NotDetected); Coronavirus NL63 Not Detected (NotDetected); Coronavirus OC43 Not Detected (NotDetected); Coronovirus HKU1,PCR Not Detected (NotDetected); Human Metapneumovirus Not Detected (NotDetected); Influenza A, PCR Not Detected (NotDetected); Influenza AH1, 2009 Not Detected (NotDetected); Influenza AH1, PCR Not Detected (NotDetected); Influenza AH3,PCR Not Detected (NotDetected); Influenza B, PCR Not Detected (NotDetected); Mycoplasma Pneumoniae, PCR Not Detected (NotDetected); Parainfluenza 1, PCR Not Detected (NotDetected); Parainfluenza 2, PCR Not Detected (NotDetected); Parainfluenza 3, PCR Not Detected (NotDetected); Parainfluenza 4, PCR Not Detected (NotDetected); Respiratory Syncytial Virus Not Detected (NotDetected); Rhinovirus/Enterovirus Not Detected (NotDetected)
[2020-11-18 16:45] LABS: Chloride 93 mmol/L (98-107); Potassium 4.1 mmoL/L (3.5-5.1); Sodium 129 mmol/L (136-145); Troponin I < 0.01 ng/ml (0.00-0.034)
[2020-11-18 16:46] LABS: Procalcitonin 0.165 ng/mL (0.0-2.0)
[2020-11-18 16:48] LABS: Anion Gap 14.1 mEq/L (5-15); Blood Urea Nitrogen 19 mg/dl (9-20); Calcium 8.9 mg/dl (8.4-10.2); Carbon Dioxide 26 mmol/L (22.0-30.0); Creatinine Clearance Estimated 109 mL/min (50-200); Estimated Glomerular Filt Rate 113 ml/min (>60); GFR (African American) 137 ML/MIN (>60); Glucose 287 mg/dl (74-100)
[2020-11-18 16:49] LABS: Coronavirus 19 IgG Antibody Positive (Negative); Coronavirus 19 IgM Antibody Negative (Negative)
--- NOTE | 2020-11-18 16:59 | PC.NURSE ---
speaking with Vannesa Arriola
[2020-11-18 17:55] LABS: Coronavirus 19, PCR Detected (NotDetected)
--- NOTE | 2020-11-18 19:28 | PC.NURSE ---
report received from venkatesh claytonrn
--- NOTE | 2020-11-18 19:53 | PC.NURSE ---
patient up to floor via wheel chair.
[2020-11-18 22:03] LABS: POC Glucose,Bedside 266 (70-110)
[2020-11-19] VITALS (7 sets, daily range): BP systolic 112–147; BP diastolic 67–82; PULSE 69–77; RESP 18–24; TEMP 36–37.1; O2SAT 89–98; BMI 33.0
--- NOTE | 2020-11-19 04:25 | PC.NURSE ---
Pt was a new admit this shift from the ER. Pt has been pleasant and cooperative. A&O X4. No complaints of pain. Pt is receiving O2 via NC @ 4 LPM with sats. >90%. Pt complains of SOA with exertion and activity. Intermittent, dry, non-productive cough is noted. Lung sounds reveal crackles and wheezing. Skin is C/D/I. No edema noted. Pt ambulates independently and uses the urinal to void clear, yellow urine without issue. No BM thus far this shift. FSBS result at 2100 noted to be 266 and pt received 8 units of insulin per sliding scale. 20 G peripheral IV in the RT forearm is patent and infusing NS @ 100 ML/HR. VSS. Call light within reach. Will continue to monitor.
[2020-11-19 05:32] LABS: POC Glucose,Bedside 296 (70-110)
[2020-11-19 06:22] LABS: Basophils % 0.2 % (0.1-2.0); Hematocrit 44.6 % (42.0-52.0); Hemoglobin 15.8 g/dL (14.1-18.0); Lymphocytes # 0.4 K/mm3 (0.7-4.5); Lymphocytes % 11.4 % (10-50); Mean Corpuscular HGB Conc 35.5 g/dL (31.8-35.4); Mean Corpuscular Volume 90.1 fl (80-94); Mean Platelet Volume 8.3 fl (7.4-10.4); Monocytes # 0.1 K/mm3 (0.1-1.0); Monocytes % 3.7 % (1.7-9.3); Neutrophils # 3.1 K/mm3 (1.8-7.8); Neutrophils % 84.7 % (37.0-80.0); Platelet Count 138 K/mm3 (142-424); Red Blood Count 4.95 M/mm3 (4.60-6.20); Red Cell Distribution Width 13.7 % (11.5-17.5); White Blood Count 3.6 K/mm3 (4.8-10.8)
[2020-11-19 06:27] LABS: Alanine Aminotransferase 28 U/L (12-78); Albumin Level 3.6 g/dl (3.5-5.0); Albumin/Globulin Ratio 1.2 (1.1-1.8); Alkaline Phosphatase 95 U/L (38-126); Anion Gap 11.3 mEq/L (5-15); Aspartate Amino Transferase 32 U/L (17-59); Bilirubin,Total 0.8 mg/dl (0.2-1.3); Blood Urea Nitrogen 18 mg/dl (9-20); Calcium 8.6 mg/dl (8.4-10.2); Carbon Dioxide 26 mmol/L (22.0-30.0); Chloride 96 mmol/L (98-107); Creatinine Clearance Estimated 105 mL/min (50-200); Estimated Glomerular Filt Rate 135 ml/min (>60); GFR (African American) 164 ML/MIN (>60); Globulin 3.1 g/dL (1.3-3.2); Glucose 294 mg/dl (74-100); Magnesium 2.1 mg/dl (1.6-2.3); Potassium 4.3 mmoL/L (3.5-5.1); Sodium 129 mmol/L (136-145); Total Protein,Serum 6.7 g/dl (6.3-8.2)
--- NOTE | 2020-11-19 06:40 | HMH.HP ---
*Admission Date: 11/18/20 *Chief complaint: SOA, COVID-19 *History of present illness: Mr. Page is a 65-year-old gentleman with uncontrolled diabetes, limited primary care follow-up, who has been dealing with respiratory symptoms suspected to be Covid for the past 2 to 3 weeks. Presented to the ER yesterday due to worsening shortness of breath, near syncope with coughing. States his family's been dealing with Covid with multiple family members being tested including his who was admitted earlier this month. He had symptoms that began 2 to 3 weeks ago but did not seek testing as he has [place] quarant[place] and did not see a need for testing as he presumed it was Covid given his close exposures to known positives. Denies any GI symptoms, chest pain, nausea or vomiting. States he has been progressively weaker over the past few weeks but most acutely over the past 2 to 3 days. Dyspnea with exertion. Coughing fits so bad he has almost passed out. 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 On assessment in the ER, patient was found to be hypoxic, have bilateral airspace disease consistent with viral pneumonia, and some hyponatremia. Admitted for acute hypoxemic respiratory failure in the setting of COVID-19. Started on Covid protocol. On assessment this morning, states he is feeling much better with oxygen. Is able to ambulate independently to the bathroom but desats rapidly and feels fatigued without his oxygen. Tolerating fair p.o. intake. Pt getting back into bed on initially entering his room. [facility] History I have reviewed the patient's past medical history: Yes Medical History: Reports:: Diabetes Mellitus Type 2 Denies:: Cancer, Diabetes Mellitus Type 1, MRSA *Have you ever received a pneumonia vaccine?: No *Have you received a flu vaccine this season?: No Other Surgeries: Yes: Cancer Surgery, Colonoscopy, Colon Resection, EGD Amputation: No Fractures: Yes (FINGERS,ANKLE,TOES) - *Social History Last grade of school completed: Some college Smoking Status: Never smoker Alcohol Intake: never Substance Use Type: denies use *Occupational Status:: employed Housing: house Household Members: spouse *Travel in the last 8 weeks: None Family Hx:: No significant family history Review of Systems - Review of Systems Review of systems:: pertinent systems reviewed and negative unless documented below (14 point review of systems performed, pertinent positives and negatives as per HPI) Meds Home Medications Medication Instructions Recorded Confirmed Type No Known Home Medications 11/18/20 11/18/20 History Allergies Allergy/AdvReac Type Severity Reaction Status Date / Time codeine [CODEINE] Allergy Mild Verified 11/18/20 21:44 levofloxacin [From LEVAQUIN] Allergy Mild Verified 11/18/20 21:44 Exam Vital signs and Labs for Last 24 Hours: Temp Pulse Resp BP Pulse Ox 98.1 F 69 22 112/69 90 L 11/19/20 04:00 11/19/20 04:00 11/19/20 04:00 11/19/20 04:00 11/19/20 04:00 Laboratory Results - last 24 hr 11/18/20 16:03: Troponin I < 0.01 11/18/20 16:03: WBC 8.5, RBC 5.19, Hgb 16.6, Hct 47.0, MCV 90.6, MCH 32.0 H, MCHC 35.3, RDW 13.6, Plt Count 145, MPV 8.7, Neut % (Auto) 89.6 H, Lymph % (Auto) 6.1 L, [place] % (Auto) 3.9, Eos % (Auto) 0.1, Baso % (Auto) 0.4, Neut # (Auto) 7.6, Lymph # (Auto) 0.5 L, [place] # (Auto) 0.3, Eos # (Auto) 0.0, Baso # (Auto) 0.0, Total Counted 100, Neutrophils % (Manual) 90 H, Lymphocytes % (Manual) 5 L, Monocytes % (Manual) 3, Eosinophils % (Manual) 2, Platelet Estimate Normal, RBC Morphology Normal 11/18/20 16:03: Lactate 1.3 11/18/20 16:03: Sodium 129 L, Potassium 4.1, Chloride 93 L, Carbon Dioxide 26, Anion Gap 14.1, BUN 19, Creatinine 0.70, Estimated Creat Clear 109, Estimated GFR 113, Est GFR ( Amer) 137, Glucose 287 H, Calcium 8.9 11/18/20 16:03: SARS-CoV-2 IgG Ab (Rapid) Positive A, SARS-CoV-2 IgM Ab (Rapid) Negative 11/18/20 16:03
[2020-11-19 06:58] LABS: Thyroid Stimulating Hormone 0.98 uIU/mL (0.465-4.68)
--- NOTE | 2020-11-19 09:31 | P.CONPHA_ITS ---
[facility] Pharmacy VTE Monitoring - Patient Demographics Admission date: 11/18/20 Report Date: 11/19/20 Time: 09:31 Allergies/Adverse Reactions: Patient Allergies codeine [CODEINE] Allergy (Mild, Verified 11/18/20 21:44) levofloxacin [From LEVAQUIN] Allergy (Mild, Verified 11/18/20 21:44) Height: 1.75 m Weight: 101.236 kg Patient Problems: Current Active Problems Pneumonia due to COVID-19 virus (Acute) Respiratory failure with hypoxia (Acute) - VTE Risk Labs: VTE Related Lab Results Hgb 15.8 g/dL (14.1-18.0) 11/19/20 05:00 Hct 44.6 % (42.0-52.0) 11/19/20 05:00 Plt Count 138 K/mm3 (142-424) L 11/19/20 05:00 BUN 18 mg/dl (9-20) 11/19/20 05:00 Creatinine 0.60 mg/dl (0.66-1.25) L 11/19/20 05:00 Estimated Creat Clear 105 mL/min (50-200) 11/19/20 05:00 Was VTE Risk Assessment Performed: Yes VTE Score: 2 VTE Risk Level: Very Low Risk - Prophylaxis VTE Prophylaxis Ordered?: Yes Types of VTE Prophylaxis: Pharmacological Pharmacologic Type: Enoxaparin
--- NOTE | 2020-11-19 09:52 | SW/DCPLANNER ---
PATIENT WAS ADMITTED TO [facility] WITH A DIAGNOSIS OF SHORTNESS OF BREATH AND COVID.... PATIENT RESIDES AT HOME AND THE PLAN IS FOR HIM TO RETURN BACK ONCE HE IS MEDICALLY CLEARED TO DO SO..DR GROSSMAN STATED PATIENT IS NOT MEDICALLY READY TO DISCHARGE AT THIS TIME...
[2020-11-19 10:43] LABS: Hemoglobin A1C 11.6 % (4.0-6.0)
--- NOTE | 2020-11-19 11:14 | PC.NURSE ---
PT ROOM AIR SAT IS 85%. HE MAY BENEFIT FROM HOME O2. 2LNC RE-APPLIED AND PT RECOVERED QUICKLY TO 93%. NO NEEDS AT THIS TIME. WILL CONTINUE TO MONITOR.
[2020-11-19 12:05] LABS: POC Glucose,Bedside 249 (70-110)
--- NOTE | 2020-11-19 13:14 | SW/DCPLANNER ---
Addendum entered by Belén Garcia 11/22/20 07:44: PATIENT REMAINS HERE AT THE HOSPITAL, HE MAY DISCHARGE HOME POSSIBLY TODAY.. 02 HAS ALREADY BEEN ARRANGED FOR HIM.. Original Note: SET UP HOME 02 FOR THIS PATIENT WHO IS DISCHARGING HOME IN THE MORNING.... A PORTABLE TANK WILL BE DELIVERED TO HIS ROOM THIS AFTERNOON WITH AN ANTICIPATED DISCHARGE ON SAT....
--- NOTE | 2020-11-19 18:48 | PC.NURSE ---
HE IS AOX4, ABLE TO MAKE NEEDS KNOWN TO STAFF, HAS TOLERATED DIET WELL. HE DENIES N/V/D, HAS TOLERATED 2L NC WITH OS SATS WNL, HOME O2 WAS DELIVERED BY NICHELLE THIS SHIFT, NO NEEDS AT THIS TIME.
[2020-11-19 20:52] LABS: POC Glucose,Bedside 339 (70-110)
[2020-11-20] VITALS (8 sets, daily range): BP systolic 108–130; BP diastolic 66–74; PULSE 63–76; RESP 16–22; TEMP 35.9–36.9; O2SAT 90–96; BMI 33.8
--- NOTE | 2020-11-20 04:34 | PC.NURSE ---
Pt has been pleasant and cooperative this shift. A&O X4. No complaints of pain. Pt is receiving O2 via NC @ 6 LPM with sats. >90%. Pt complains of SOA with exertion and activity. Intermittent, dry, non-productive cough is noted. Lung sounds reveal crackles and wheezing. Skin is C/D/I. No edema noted. Pt ambulates independently and uses the urinal to void clear, yellow urine without issue. No BM thus far this shift. FSBS result at 2100 noted to be 339 and pt received 10 units of insulin per sliding scale. 20 G peripheral IV in the LT forearm is patent and infusing NS @ 100 ML/HR. 20 G peripheral IV in the RT forearm is patent and SL. VSS. Call light within reach. Will continue to monitor.
[2020-11-20 05:29] LABS: Basophils % 0.1 % (0.1-2.0); Eosinophils % 0.3 % (0.1-12.0); Hematocrit 43.5 % (42.0-52.0); Hemoglobin 15.4 g/dL (14.1-18.0); Lymphocytes # 0.9 K/mm3 (0.7-4.5); Lymphocytes % 10.3 % (10-50); Mean Corpuscular HGB Conc 35.4 g/dL (31.8-35.4); Mean Corpuscular Hemoglobin 31.9 pg (27.0-31.2); Mean Corpuscular Volume 90.1 fl (80-94); Mean Platelet Volume 8.3 fl (7.4-10.4); Monocytes # 0.4 K/mm3 (0.1-1.0); Monocytes % 4.6 % (1.7-9.3); Neutrophils % 84.6 % (37.0-80.0); Platelet Count 176 K/mm3 (142-424); Red Blood Count 4.83 M/mm3 (4.60-6.20); Red Cell Distribution Width 13.4 % (11.5-17.5); White Blood Count 8.3 K/mm3 (4.8-10.8)
[2020-11-20 05:30] LABS: POC Glucose,Bedside 222 (70-110)
[2020-11-20 05:34] LABS: Chloride 99 mmol/L (98-107); Potassium 3.9 mmoL/L (3.5-5.1); Sodium 131 mmol/L (136-145)
[2020-11-20 05:36] LABS: Blood Urea Nitrogen 19 mg/dl (9-20); Creatinine Clearance Estimated 105 mL/min (50-200); Estimated Glomerular Filt Rate 135 ml/min (>60); GFR (African American) 164 ML/MIN (>60)
[2020-11-20 05:37] LABS: Alanine Aminotransferase 29 U/L (12-78); Albumin Level 3.5 g/dl (3.5-5.0); Albumin/Globulin Ratio 1.2 (1.1-1.8); Alkaline Phosphatase 90 U/L (38-126); Anion Gap 10.9 mEq/L (5-15); Aspartate Amino Transferase 29 U/L (17-59); Bilirubin,Total 0.8 mg/dl (0.2-1.3); Calcium 8.6 mg/dl (8.4-10.2); Carbon Dioxide 25 mmol/L (22.0-30.0); Glucose 229 mg/dl (74-100); Total Protein,Serum 6.5 g/dl (6.3-8.2)
[2020-11-20 06:33] LABS: POC Glucose,Bedside 294 (70-110)
--- NOTE | 2020-11-20 07:19 | XR_ITS ---
PROCEDURE: XR CHEST PORTABLE Referring Doctor: Porter Marin Patient Age:65Y CLINICAL HISTORY: increased O2 requirement Increasing dyspnea short of breath b covid positive COMPARISON: CR XR CHEST 2V from 07/03/2019 CR XR CHEST PORTABLE from 11/18/2020 FINDINGS: There are 2 images from today's AP upright portable CXR but these are compared to November 18 21 CXR There is fair inspiration on the 2nd image with the diaphragm down to the anterior 5th rib but overall findings are very similar to November 18 if not slightly improved on the today's 2nd more optimal portable CXR Left lung a suspect is very subtle low-density patchy infiltrate at the left mid/lower lung field projected over the left 4th rib end.. Otherwise the mild perihilar infiltrate and infiltrate at the left infrahilar region has improved slightly. Left hemidiaphragm remains sharp and clear. Right lung. Mild accentuation of markings and density at the periphery of the right lung could particularly towards the lower lung yap may reflect subtle peripheral infiltrate along the lateral aspect of the right lung of versus overlying soft tissues. Subtle perihilar infiltrate also I believe evident with suggestion of slight improvement and clearing of minimal infiltrate at the right suprahilar region since yesterday.-a the right margin of the mediastinum now better visualized The heart upper normal in size of of borderline cardiomegaly. Vascularity appears upper normal likely accentuated by the less than optimal inspiration but. Superior mediastinum appears stable satisfactory. If anything there may be some clearing of a. IMPRESSION: Today's chest film is very similar to 11/18/2020. Overall the I believe there has been subtle incremental improvement radiographically (Would note the lung markings bilaterally are accentuated due to the less than optimal inspiration). Minimal subtle bilateral infiltrates suggested: Minimal patchy infiltrate projected over the anterior left 4th rib; minimal bilateral perihilar infiltrate with improvement right suprahilar region since she the prior study. Questionable subtle infiltrate along the periphery of the right lung. . Dictated by: Juan Valdez MD 11/20/2020 10:39 Juan Valdez MD in [place] 11/20/2020 10:39
--- NOTE | 2020-11-20 10:03 | HMH.ACPN2 ---
Internal Medicine - PN: Subj *Date: 11/20/20 *Time: 10:03 Interval history: Patient pleasant this morning, slight increase in respiratory distress. Symptoms worse when he coughs. Cough quite significant with deep breathing. Breathing treatments because cough is well that produces intermittent but resolving hypoxia. Increased oxygen requirement with 6 L at this time. Tolerating good p.o. intake. Voiding independently. Denies chest pain, nausea, vomiting. Exam Vital signs and Labs for Last 24 Hours: Temp Pulse Resp BP Pulse Ox 97.5 F L 76 18 123/74 91 L 11/20/20 08:00 11/20/20 08:00 11/20/20 08:00 11/20/20 08:00 11/20/20 08:00 Laboratory Results - last 24 hr 11/19/20 05:00: Hemoglobin A1c 11.6 H 11/19/20 11:57: POC Glucose 249 H 11/19/20 16:56: POC Glucose 294 H 11/19/20 20:37: POC Glucose 339 H* 11/20/20 05:10: POC Glucose 222 H 11/20/20 05:11: WBC 8.3 D, RBC 4.83, Hgb 15.4, Hct 43.5, MCV 90.1, MCH 31.9 H, MCHC 35.4, RDW 13.4, Plt Count 176 D, MPV 8.3, Neut % (Auto) 84.6 H, Lymph % (Auto) 10.3, [place] % (Auto) 4.6, Eos % (Auto) 0.3, Baso % (Auto) 0.1, Neut # (Auto) 7.0, Lymph # (Auto) 0.9, [place] # (Auto) 0.4, Eos # (Auto) 0.0, Baso # (Auto) 0.0 11/20/20 05:11: Sodium 131 L, Potassium 3.9, Chloride 99, Carbon Dioxide 25, Anion Gap 10.9, BUN 19, Creatinine 0.60 L, Estimated Creat Clear 105, Estimated GFR 135, Est GFR ( Amer) 164, Glucose 229 H, Calcium 8.6, Magnesium 2.0, Total Bilirubin 0.8, AST 29, ALT 29, Alkaline Phosphatase 90, Total Protein 6.5, Albumin 3.5, Globulin 3.0, Albumin/Globulin Ratio 1.2 I & O for Last 24 hours: Intake & Output 11/17/20 11/18/20 11/19/20 11/20/20 23:59 23:59 23:59 23:59 Intake Total 1530 / 1530 988 / 988 Output Total 800 / 800 1300 / 1300 Balance 730 / 730 -312 / -312 Weight 101.236 kg 101 kg 103.589 kg Microbiology Reports for the Last 24 Hours: Microbiology 11/19/20 00:26 Sputum - Expectorated Sputum Gram Stain - Final 11/19/20 00:26 Sputum - Expectorated Sputum Sputum Culture - Preliminary Narrative: - Constitutional mild distress, obese - *Routine HEENT Exam Head: Present: normocephalic Eye: Present: EOMI, PERRL ENT: Present: mucous membranes moist - *Routine Neck Exam Present: supple. Absent: lymphadenopathy - *Routine Respiratory Exam Present: accessory muscle use, wheezes, crackles. Absent: rhonchi - *Routine Cardiovascular Exam Present: RRR - *Routine Abdominal Exam Present: soft, normoactive bowel sounds. Absent: tenderness - *Routine Extremities Exam Absent: cyanosis, clubbing, edema - *Routine Skin Exam Present: warm. Absent: rash - *Routine Neurological Exam Present: alert, oriented X3 - Routine Psychiatric Exam Present: normal affect, good insight, good judgment Assessment and Plan (1) Pneumonia due to COVID-19 virus Status: Acute Category: Medical Code(s): U07.1 - COVID-19; J12.82 - Pneumonia due to coronavirus disease 2019 (2) Respiratory failure with hypoxia Status: Acute Qualifiers: Chronicity: acute Qualified Code(s): J96.01 - Acute respiratory failure with hypoxia Category: Medical Code(s): J96.91 - Respiratory failure, unspecified with hypoxia (3) Hyponatremia Status: Acute Category: Medical Code(s): E87.1 - Hypo-osmolality and hyponatremia (4) Uncontrolled diabetes mellitus Status: Acute Category: Medical Code(s): E11.65 - Type 2 diabetes mellitus with hyperglycemia (5) Poor compliance with medication Status: Acute Category: Medical Code(s): Z91.14 - Patient's other noncompliance with medication regimen (6) Hyperglycemia due to type 2 diabetes mellitus Status: Acute Qualifiers: Diabetes mellitus halfway insulin use: without halfway use Qualified Code(s): E11.65 - Type 2 diabetes mellitus with hyperglycemia Category: Medical Code(s): E11.65 - Type 2 diabetes mellitus with hyperglycemia A1c elevated on admission o
[2020-11-20 11:26] LABS: POC Glucose,Bedside 218 (70-110)
--- NOTE | 2020-11-20 15:47 | PC.NURSE ---
HE IS AOX4, ABLE TO MAKE NEEDS KNOWN TO STAFF. HE STILL REQUIRES 6LNC FOR O2 SUPPORT, DURING ROUNDS DR GROSSMAN STATED THAT HE FELT THE O2 SUPPORT WAS NECESSARY, PT HAS AMBULATED PER SELF TO RESTROOM WITH NO COMPLAINTS, HAS HAS BEEN UP TO SHOWER AND HAD LINENS CHANGED ALSO, HE DOES REQUIRE O2 WITH AMBULATION TO AND FROM THE RESTROOM. HE HAS BEEN USING IS MULTIPLE TIMES PER HOUR, HE HAS REQUIRED INSULIN COVERAGE AND BOTH FSBS CHECKS THIS SHIFT, HE DENIES N/V/D, HE DID HAVE A CONTINUOUS/DRY/HACKING WAS NOTED EARLIER PRN COUGH MEDICINE ADMIN PER MAR WITH GOOD EFFECTIVENESS NOTED, PT STATES THAT HE WOULD LIKE TO RECEIVE MORE EDUCATION ABOUT PROPER DIABETIC DIET AND BETTER HEALTH PRACTICES AND WOULD MOST LIKELY BENEFIT FROM A DIETARY CONSULTATION, NO NEEDS AT THIS TIME VSS, WILL CONTINUE TO MONITOR.
[2020-11-20 21:29] LABS: POC Glucose,Bedside 314 (70-110)
[2020-11-20 23:36] LABS: POC Glucose,Bedside 274 (70-110)
[2020-11-21] VITALS (8 sets, daily range): BP systolic 108–132; BP diastolic 65–75; PULSE 59–64; RESP 18–24; TEMP 36.1–37; O2SAT 91–98; BMI 33.0
[2020-11-21 06:48] LABS: Basophils % 0.3 % (0.1-2.0); Eosinophils % 0.5 % (0.1-12.0); Hematocrit 44.4 % (42.0-52.0); Hemoglobin 15.5 g/dL (14.1-18.0); Lymphocytes % 15.6 % (10-50); Mean Corpuscular HGB Conc 34.9 g/dL (31.8-35.4); Mean Corpuscular Hemoglobin 31.7 pg (27.0-31.2); Mean Corpuscular Volume 90.7 fl (80-94); Mean Platelet Volume 8.5 fl (7.4-10.4); Monocytes # 0.4 K/mm3 (0.1-1.0); Monocytes % 6.1 % (1.7-9.3); Neutrophils # 4.8 K/mm3 (1.8-7.8); Neutrophils % 77.4 % (37.0-80.0); Platelet Count 173 K/mm3 (142-424); Red Blood Count 4.89 M/mm3 (4.60-6.20); Red Cell Distribution Width 13.6 % (11.5-17.5); White Blood Count 6.2 K/mm3 (4.8-10.8)
[2020-11-21 06:55] LABS: Alanine Aminotransferase 26 U/L (12-78); Albumin Level 3.4 g/dl (3.5-5.0); Albumin/Globulin Ratio 1.2 (1.1-1.8); Alkaline Phosphatase 83 U/L (38-126); Anion Gap 6.9 mEq/L (5-15); Aspartate Amino Transferase 28 U/L (17-59); Bilirubin,Total 0.7 mg/dl (0.2-1.3); Blood Urea Nitrogen 16 mg/dl (9-20); Calcium 8.7 mg/dl (8.4-10.2); Carbon Dioxide 30 mmol/L (22.0-30.0); Chloride 100 mmol/L (98-107); Creatinine Clearance Estimated 105 mL/min (50-200); Estimated Glomerular Filt Rate 113 ml/min (>60); GFR (African American) 137 ML/MIN (>60); Globulin 2.9 g/dL (1.3-3.2); Glucose 135 mg/dl (74-100); Potassium 3.9 mmoL/L (3.5-5.1); Sodium 133 mmol/L (136-145); Total Protein,Serum 6.3 g/dl (6.3-8.2)
--- NOTE | 2020-11-21 07:14 | PC.NURSE ---
Pt A&O x4, slept well through the night. No c/o pain or diffuculty breathing. Pt has remained on 6L NC per MD through the night with sats in the mid 90s. Pt ambulated to the bathroom and tolerated well. Bowel sounds positive x4, abd soft and nontender. VSS, call light in reach, no concerns at this time.
[2020-11-21 07:56] LABS: POC Glucose,Bedside 127 (70-110)
--- NOTE | 2020-11-21 09:45 | HMH.ACPN2 ---
Internal Medicine - PN: Subj *Date: 11/21/20 *Time: 09:45 Interval history: Mr. Page is pleasant on interview this morning. Appears much more comfortable this morning. Weaned to 4 L during interview tolerating well with saturations in the low to mid 90s. Tolerating p.o. intake. Ambulating independently to the bathroom though gets fatigued. Denies nausea, chest pain, vomiting, diarrhea. Has been using his hand spirometer, only able to pull about 750 mL before inducing a coughing spell. Some improvement with cough when he takes Robitussin. Remains afebrile and hemodynamically stable. Blood sugar better this morning with increase and basal dose last night Exam Vital signs and Labs for Last 24 Hours: Temp Pulse Resp BP Pulse Ox 98.3 F 62 19 125/73 92 L 11/21/20 08:00 11/21/20 08:00 11/21/20 08:00 11/21/20 08:00 11/21/20 08:00 Laboratory Results - last 24 hr 11/20/20 10:51: POC Glucose 218 H 11/20/20 17:28: POC Glucose 314 H* 11/20/20 21:59: POC Glucose 274 H 11/21/20 06:30: WBC 6.2 D, RBC 4.89, Hgb 15.5, Hct 44.4, MCV 90.7, MCH 31.7 H, MCHC 34.9, RDW 13.6, Plt Count 173, MPV 8.5, Neut % (Auto) 77.4, Lymph % (Auto) 15.6, [place] % (Auto) 6.1, Eos % (Auto) 0.5, Baso % (Auto) 0.3, Neut # (Auto) 4.8, Lymph # (Auto) 1.0, [place] # (Auto) 0.4, Eos # (Auto) 0.0, Baso # (Auto) 0.0 11/21/20 06:30: Sodium 133 L, Potassium 3.9, Chloride 100, Carbon Dioxide 30, Anion Gap 6.9, BUN 16, Creatinine 0.70, Estimated Creat Clear 105, Estimated GFR 113, Est GFR ( Amer) 137, Glucose 135 H, Calcium 8.7, Total Bilirubin 0.7, AST 28, ALT 26, Alkaline Phosphatase 83, Total Protein 6.3, Albumin 3.4 L, Globulin 2.9, Albumin/Globulin Ratio 1.2 11/21/20 06:32: POC Glucose 127 H I & O for Last 24 hours: Intake & Output 11/18/20 11/19/20 11/20/20 11/21/20 23:59 23:59 23:59 23:59 Intake Total 1530 / 1530 1348 / 1688 340 / 340 Output Total 800 / 800 1300 / 1300 Balance 730 / 730 48 / 388 340 / 340 Weight 101.236 kg 101 kg 103.589 kg 101.208 kg Microbiology Reports for the Last 24 Hours: Microbiology 11/19/20 00:26 Sputum - Expectorated Sputum Gram Stain - Final 11/19/20 00:26 Sputum - Expectorated Sputum Sputum Culture - Final Normal Respiratory Alexa 11/18/20 15:56 Blood Blood Culture - Preliminary NO GROWTH AFTER 48 HOURS 11/18/20 16:03 Blood Blood Culture - Preliminary NO GROWTH AFTER 48 HOURS Narrative: - Constitutional minimal distress, obese - *Routine HEENT Exam Head: Present: normocephalic Eye: Present: EOMI, PERRL ENT: Present: mucous membranes moist - *Routine Neck Exam Present: supple. Absent: lymphadenopathy - *Routine Respiratory Exam Present: Fair air movement bilaterally, faint crackles. Absent: Wheezes, rhonchi - *Routine Cardiovascular Exam Present: RRR - *Routine Abdominal Exam Present: soft, normoactive bowel sounds. Absent: tenderness - *Routine Extremities Exam Absent: cyanosis, clubbing, edema - *Routine Skin Exam Present: warm. Absent: rash - *Routine Neurological Exam Present: alert, oriented X3 - Routine Psychiatric Exam Present: normal affect, good insight, good judgment Assessment and Plan (1) Pneumonia due to COVID-19 virus Status: Acute Category: Medical Code(s): U07.1 - COVID-19; J12.82 - Pneumonia due to coronavirus disease 2019 (2) Respiratory failure with hypoxia Status: Acute Qualifiers: Chronicity: acute Qualified Code(s): J96.01 - Acute respiratory failure with hypoxia Category: Medical Code(s): J96.91 - Respiratory failure, unspecified with hypoxia (3) Hyponatremia Status: Acute Category: Medical Code(s): E87.1 - Hypo-osmolality and hyponatremia (4) Uncontrolled diabetes mellitus Status: Acute Category: Medical Code(s): E11.65 - Type 2 diabetes mellitus with hyperglycemia (5) Poor compliance with medica
[2020-11-21 16:19] LABS: POC Glucose,Bedside 280 (70-110)
--- NOTE | 2020-11-21 20:06 | PC.NURSE ---
HE IS AOX4, WAS SUCCESSFULLY TITRATED TO 4LNC, HAS AMBULATED IN ROOM T/O SHIFT, HAS WALKED TO BATHRROM INDEPENDENTLY, HAS NOT C/O N/V/D, HE HAS NOT C/O SOB ON AMBULATION, TOLERATING PO INTAKE.
[2020-11-22] VITALS: BP 131/78; PULSE 57; RESP 18; TEMP 36.6; O2SAT 92
[2020-11-22 00:18] LABS: POC Glucose,Bedside 331 (70-110)
[2020-11-22 01:28] LABS: POC Glucose,Bedside 209 (70-110)
[2020-11-22 04:00] VITALS: BP 137/73; PULSE 58; RESP 20; TEMP 36.4; O2SAT 91
[2020-11-22 05:00] VITALS: BMI 34.7
--- NOTE | 2020-11-22 05:03 | PC.NURSE ---
pt has rested this shift. vss. no complaints voiced. remains on 4LNC. ivs patent and SL. independent with ambulation. up to shower at this time. call light in reach. will continue to monitor pt condition.
[2020-11-22 07:12] LABS: POC Glucose,Bedside 121 (70-110)
[2020-11-22 07:14] LABS: Basophils % 0.3 % (0.1-2.0); Eosinophils % 0.4 % (0.1-12.0); Hematocrit 44.6 % (42.0-52.0); Hemoglobin 15.6 g/dL (14.1-18.0); Lymphocytes # 1.2 K/mm3 (0.7-4.5); Lymphocytes % 16.1 % (10-50); Mean Corpuscular HGB Conc 34.9 g/dL (31.8-35.4); Mean Corpuscular Hemoglobin 31.5 pg (27.0-31.2); Mean Corpuscular Volume 90.3 fl (80-94); Monocytes # 0.4 K/mm3 (0.1-1.0); Monocytes % 5.6 % (1.7-9.3); Neutrophils # 5.7 K/mm3 (1.8-7.8); Neutrophils % 77.7 % (37.0-80.0); Platelet Count 194 K/mm3 (142-424); Red Blood Count 4.94 M/mm3 (4.60-6.20); Red Cell Distribution Width 13.6 % (11.5-17.5); White Blood Count 7.3 K/mm3 (4.8-10.8)
[2020-11-22 07:22] LABS: Alanine Aminotransferase 32 U/L (12-78); Albumin Level 3.4 g/dl (3.5-5.0); Albumin/Globulin Ratio 1.2 (1.1-1.8); Alkaline Phosphatase 81 U/L (38-126); Anion Gap 7.6 mEq/L (5-15); Aspartate Amino Transferase 25 U/L (17-59); Bilirubin,Total 0.8 mg/dl (0.2-1.3); Blood Urea Nitrogen 17 mg/dl (9-20); Calcium 8.7 mg/dl (8.4-10.2); Carbon Dioxide 29 mmol/L (22.0-30.0); Chloride 100 mmol/L (98-107); Creatinine Clearance Estimated 105 mL/min (50-200); Estimated Glomerular Filt Rate 113 ml/min (>60); GFR (African American) 137 ML/MIN (>60); Globulin 2.9 g/dL (1.3-3.2); Glucose 129 mg/dl (74-100); Potassium 3.6 mmoL/L (3.5-5.1); Sodium 133 mmol/L (136-145); Total Protein,Serum 6.3 g/dl (6.3-8.2)
[2020-11-22 08:00] VITALS: BP 121/70; PULSE 60; RESP 18; TEMP 36.6; O2SAT 93
--- NOTE | 2020-11-22 08:35 | HMH.DCSUM ---
General - General Admission date:: 11/18/20 Discharge date: 11/22/20 HPI HPI: Mr. Page is a 65-year-old gentleman with uncontrolled diabetes, limited primary care follow-up, who has been dealing with respiratory symptoms suspected to be Covid for the past 2 to 3 weeks. Presented to the ER yesterday due to worsening shortness of breath, near syncope with coughing. States his family's been dealing with Covid with multiple family members being tested including his who was admitted earlier this month. He had symptoms that began 2 to 3 weeks ago but did not seek testing as he has been quarant[place] at home [place] and did not see a need for testing as he presumed it was Covid given his close exposures to known positives. Denies any GI symptoms, chest pain, nausea or vomiting. States he has been progressively weaker over the past few weeks but most acutely over the past 2 to 3 days. Dyspnea with exertion. Coughing fits so bad he has almost passed out. 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 On assessment in the ER, patient was found to be hypoxic, have bilateral airspace disease consistent with viral pneumonia, and some hyponatremia. Admitted for acute hypoxemic respiratory failure in the setting of COVID-19. Started on Covid protocol. On assessment this morning, states he is feeling much better with oxygen. Is able to ambulate independently to the bathroom but desats rapidly and feels fatigued without his oxygen. Tolerating fair p.o. intake. Pt getting back into bed on initially entering his room. Hospital Course Hospital Course: Patient did well after being placed on supplemental oxygen. Was briefly on 6 L nasal cannula but has been very stable over the last 48 hours on 4 L nasal cannula with O2 saturations in the low 90% range. He is comfortable, feels good resting, does have some coughing when he walks around the room. No fevers, eating well. Wishes to be discharged. Plan will be to discharge him with azithromycin, dexamethasone-vitamin regimen which is current thinking in regards to COVID-19 viral supplementation. He will be on 4 L nasal cannula at home. I stressed to him the importance of follow-up to get his diabetes under control, he will be discharged with the Lantus pen and be taking 20 units at night which seems to be doing well, hopefully his glucose will come down once he is off dexamethasone. Follow-up in our office in 4 days. Objective Vital signs: Temp Pulse Resp BP Pulse Ox 97.5 F L 58 L 20 137/73 91 L 11/22/20 04:00 11/22/20 04:00 11/22/20 04:00 11/22/20 04:00 11/22/20 04:00 no acute distress - *Routine HEENT Exam Head: Present: normocephalic Eye: Present: EOMI, PERRL ENT: Present: mucous membranes moist - *Routine Neck Exam Present: supple - *Routine Respiratory Exam Present: rales, rhonchi - *Routine Cardiovascular Exam Present: RRR - *Routine Abdominal Exam Present: soft, normoactive bowel sounds. Absent: tenderness - *Routine Extremities Exam Absent: cyanosis, clubbing, edema - *Routine Skin Exam Present: warm. Absent: rash - Detailed Eye Exam Eyelids: Bilateral normal inspection Results Labs on day of discharge: Labs from last 24 hours 11/22/20 11/22/20 11/22/20 07:05 07:05 06:56 WBC 7.3 RBC 4.94 Hgb 15.6 Hct 44.6 MCV 90.3 MCH 31.5 H MCHC 34.9 RDW 13.6 Plt Count 194 MPV 8.0 Neut % (Auto) 77.7 Lymph % (Auto) 16.1 [place] % (Auto) 5.6 Eos % (Auto) 0.4 Baso % (Auto) 0.3 Neut # (Auto) 5.7 Lymph # (Auto) 1.2 [place] # (Auto) 0.4 Eos # (Auto) 0.0 Baso # (Auto) 0.0 Sodium 133 L Potassium 3.6 Chloride 100 Carbon Dioxide 29 Anion Gap 7.6 BUN 17 Creatinine 0.70 Estimated Creat Clear 105 Estimated GFR 113 Est GFR ( Amer) 137 Glucose 129 H POC Glucose 121 H Calcium 8.7 Total Biliru
--- NOTE | 2020-11-22 09:26 | DIET.NUTRFU ---
Nutritional consult completed, pt given diet education on consistent carbohydrate diet for DM including critical hyperglycemia nutritional protocol for home. Referred to OP counseling and encouraged pt to reach out with any questions/concerns post dc.
[2020-11-22 10:00] VITALS: O2SAT 95
[2020-11-22 11:48] LABS: POC Glucose,Bedside 179 (70-110)
[2020-11-22 11:56] VITALS: BP 120/72; PULSE 84; RESP 18; TEMP 36.6; O2SAT 98
== END 2020-11-22 13:55 | disposition home or self-care (01) | DRG 177 ==
LOC: ER 16:37 → 2ND 17:56
PROVIDERS: Internal Medicine Adolescent Medicine; Admitting Provider Internal Medicine Adolescent Medicine; Emergency Provider Emergency Medicine; PCP Internal Medicine Adolescent Medicine; Visit Provider Internal Medicine Adolescent Medicine
DX: U07.1 COVID-19 (principal); J12.82 Pneumonia due to coronavirus disease 2019; J96.01 Acute respiratory failure with hypoxia; E87.1 Hypo-osmolality and hyponatremia; E11.65 Type 2 diabetes mellitus with hyperglycemia; Z91.14 Patient's other noncompliance with medication regimen; Z88.8 Allergy status to other drugs, medicaments and biological substances; Z79.4 Long term (current) use of insulin
CPT/HCPCS: 71045; 80048; 80053; 82962; 83036; 83605; 83735; 84145; 84443; 84484; 85007; 85025; 86328; 87040; 87070; 87205; 87581; 87633; 87798; 93005; 94640; 94761; 99284; U0003

== ENCOUNTER → 2020-12-13 16:15 | Outpatient (CLI) | payer MEDICARE, OTHER, SELFPAY ==
--- NOTE | 2020-12-13 16:31 | XR_ITS ---
PROCEDURE: XR CHEST 2V CLINICAL HISTORY: VIRAL PNEUMONIA,UNSPECIFIED COMPARISON: CR XR CHEST 2V from 07/03/2019 CR XR CHEST PORTABLE from 11/18/2020 CR XR CHEST PORTABLE from 11/20/2020 FINDINGS: The cardiomediastinal silhouette and pulmonary vascularity are within normal limits. Patchy density is present in the right lung base and may related to an area of atelectasis or infiltrate. Overall, the pneumonia has shown improvement. There is some residual infiltrate suspected in the left perihilar region. No acute bony abnormalities. IMPRESSION: Improvement in bilateral pneumonia with some residual infiltrate or atelectatic change in the right lung base and left perihilar region Dictated by: Mauri Valenzuela MD 12/13/2020 19:03 Mauri Valenzuela MD in [place] 12/13/2020 19:03
[2020-12-13 17:45] LABS: Basophils % 0.2 % (0.1-2.0); Eosinophils % 0.3 % (0.1-12.0); Hematocrit 41.1 % (42.0-52.0); Hemoglobin 13.9 g/dL (14.1-18.0); Lymphocytes # 0.9 K/mm3 (0.7-4.5); Lymphocytes % 9.5 % (10-50); Mean Corpuscular HGB Conc 33.8 g/dL (31.8-35.4); Mean Corpuscular Hemoglobin 31.7 pg (27.0-31.2); Mean Corpuscular Volume 93.8 fl (80-94); Mean Platelet Volume 8.4 fl (7.4-10.4); Monocytes # 0.6 K/mm3 (0.1-1.0); Monocytes % 5.5 % (1.7-9.3); Neutrophils # 8.4 K/mm3 (1.8-7.8); Neutrophils % 84.6 % (37.0-80.0); Platelet Count 173 K/mm3 (142-424); Red Blood Count 4.38 M/mm3 (4.60-6.20); Red Cell Distribution Width 14.8 % (11.5-17.5)
[2020-12-13 17:47] LABS: Alanine Aminotransferase 35 U/L (12-78); Albumin Level 4.1 g/dl (3.5-5.0); Albumin/Globulin Ratio 1.3 (1.1-1.8); Alkaline Phosphatase 96 U/L (38-126); Anion Gap 13.3 mEq/L (5-15); Aspartate Amino Transferase 23 U/L (17-59); Bilirubin,Total 0.7 mg/dl (0.2-1.3); Blood Urea Nitrogen 19 mg/dl (9-20); Carbon Dioxide 26 mmol/L (22.0-30.0); Chloride 99 mmol/L (98-107); Estimated Glomerular Filt Rate 113 ml/min (>60); GFR (African American) 137 ML/MIN (>60); Globulin 3.2 g/dL (1.3-3.2); Potassium 4.3 mmoL/L (3.5-5.1); Sodium 134 mmol/L (136-145); Total Protein,Serum 7.3 g/dl (6.3-8.2)
[2020-12-13 18:27] LABS: Glucose 428 mg/dl (74-100)
== END ==
PROVIDERS: Visit Provider Internal Medicine Adolescent Medicine
DX: J12.9 Viral pneumonia, unspecified (principal)
CPT/HCPCS: 36415; 71046; 80053; 85025

== ENCOUNTER 2020-12-14 17:05 | Emergency (ER) | payer MEDICARE, OTHER, SELFPAY ==
[2020-12-14 17:06] VITALS: BP 154/99; PULSE 98; RESP 18; O2SAT 98
[2020-12-14 17:07] VITALS: BP 154/99; PULSE 96; RESP 16; TEMP 36.8; O2SAT 96; BMI 34.8
--- NOTE | 2020-12-14 17:13 | HMH.EDEXTP ---
ED Disposition Clinical Impression: Muscle strain of chest wall Qualifiers: Encounter type: subsequent encounter Qualified Code(s): S29.011D - Strain of muscle and tendon of front wall of thorax, subsequent encounter Disposition: Home, Self-Care Condition on Discharge: Good Referrals: PCPJennifer [Primary Care Provider] - 3 days Time of Disposition: 17:35 - Critical Care Critical Care Time: No Attestation: On 12/14/20, the high probability of a clinically significant, sudden or life threatening deterioration of the following system(s) required my full and direct attention, intervention and personal management. The time I documented below is in addition to time spent performing reported procedures but includes the following listed in this critical care notation. Medical Decision Making - Medical Records Medical records reviewed: Yes: I reviewed the patient's medical records. - Jcarlos Inquiry Pt receiving controlled substance: No Vital Signs: 12/14/20 17:06 12/14/20 17:07 Temperature 98.2 F Temperature Source Oral Pulse Rate [Right Radial] 98 H Pulse Rate [Right] 96 H Respiratory Rate 18 16 Blood Pressure [Right Arm] 154/99 H 154/99 H Blood Pressure Mean [Right Arm] 117 117 Blood Pressure Source [Right Arm] Automatic Cuff Automatic Cuff Blood Pressure Position [Right Arm] Supine Sitting 02 Sat by Pulse Oximetry 98 96 Oxygen Delivery Method Room Air Room Air - Lab Data Lab results reviewed: Yes: I reviewed the patient's lab results. Medical Decision Narrative: 65yo M evaluated for chest wall pain. Discussed muscle strain/tear with the patient. Encouraged him to take Tylenol along with Motrin/ibuprofen. Encouraged him to drink plenty of water. Encouraged him to do activity as tolerated but not to overuse his left upper extremity as I will only worsen and prolong his symptoms. Patient voiced understanding. Also encouraged the patient not to wear a belt around his chest is restrictive lung movement and could lead to atelectasis or pneumonia. Patient voiced understanding and states he will take it off when he gets home. Encourage the patient to breathe deeply. Extremity Problem HPI - General Stated complaint: pain Time Seen by Provider: 12/14/20 17:14 Source of Information: Patient Limitations: No Limitations - History of Present Illness HPI Narrative: 65yo M evaluated for left shoulder and back pain. Patient reports he suffered an injury yesterday and was seen afterward. He denies any repeat injury, fall, trauma. He was lifting a heavy object yesterday when he developed pain in his left chest. He denies fever, nausea/vomiting/diarrhea. He reports taking Tylenol 1000 mg earlier today. - Related Data Previous Rx's Medication Instructions Recorded Doxycycline Hyclate [Doxycycline 100 mg PO BID 10 Days #20 cap 11/22/20 100mg Capsule] Insulin Glargine,Hum.rec.anlog 20 unit SQ HS insuln.pen 11/22/20 [Lantus Solostar 100 Units/mL 3mL flexpen] Promethazine/Dextromethorphan 5 ml PO Q6HP PRN #240 ml 11/22/20 [Promethazine-Dm Syrup] predniSONE [Deltasone 20mg 20 mg PO BID 7 Days #14 tab 11/22/20 tablet] Allergies Allergy/AdvReac Type Severity Reaction Status Date / Time codeine [CODEINE] Allergy Mild Verified 11/18/20 21:44 levofloxacin [From [facility]EVAQUIN] Allergy Mild Verified 11/18/20 21:44 [facility] History - Hepatitis A Screen Drug use history?: No Attestation statement:: This patient has been screened for Hepatitis A risk factors. I have reviewed the patient's past medical history: Yes Medical History: Reports:: Diabetes Mellitus Type 2 Denies:: Cancer, Diabetes Mellitus Type 1, MRSA Other Surgeries: Yes: Cancer Surgery, Colonoscopy, Colon Resection, EGD Amputation: No Fractures: Yes (FINGERS,ANKLE,TOES) - Social History Smoking Status: Never smoker Alcohol Intake: never Substance Use Type: denies use Occupational Status: employed Housing: house [employer]
[2020-12-14 17:42] VITALS: BP 148/98; PULSE 87; RESP 16; TEMP 36.6; O2SAT 98
== END 2020-12-14 17:44 | disposition home or self-care (01) ==
PROVIDERS: Emergency Provider Family Medicine
DX: S29.011A Strain of muscle and tendon of front wall of thorax, initial encounter (principal); E11.9 Type 2 diabetes mellitus without complications; R03.0 Elevated blood-pressure reading, without diagnosis of hypertension; Z79.899 Other long term (current) drug therapy
CPT/HCPCS: 99282

== ENCOUNTER 2020-12-17 13:21 | Emergency (ER) | payer MEDICARE, OTHER, SELFPAY ==
[2020-12-17 13:23] VITALS: BP 125/82; PULSE 106; RESP 18; TEMP 36.8; O2SAT 94; BMI 32.6
--- NOTE | 2020-12-17 13:38 | HMH.EDGENADL ---
ED Disposition Clinical Impression: Contusion, chest wall Qualifiers: Encounter type: initial encounter Laterality: left Qualified Code(s): S20.212A - Contusion of left front wall of thorax, initial encounter Disposition: Home, Self-Care Condition on Discharge: Fair Additional Instructions: Continue medications as prescribed by Dr. Javier. See him in the office on Sunday as scheduled. Referrals: Rafita Javier MD [Primary Care Provider] - - Critical Care Critical Care Time: No Attestation: On 12/17/20, the high probability of a clinically significant, sudden or life threatening deterioration of the following system(s) required my full and direct attention, intervention and personal management. The time I documented below is in addition to time spent performing reported procedures but includes the following listed in this critical care notation. Medical Decision Making - Medical Records Medical records reviewed: Yes: I reviewed the patient's medical records. MR Comment: reviewed prior CXR from Sunday. Reviewed prior ED visit for current complaint - Jcarlos Inquiry Pt receiving controlled substance: No Vital Signs: 12/17/20 13:23 12/17/20 15:37 Temperature 98.2 F 98.2 F Temperature Source Oral Pulse Rate 102 H Pulse Rate [Radial] 106 H Respiratory Rate 18 20 Blood Pressure 150/90 H Blood Pressure [Right Arm] 125/82 Blood Pressure Mean [Right Arm] 96 Blood Pressure Position Sitting Blood Pressure Position [Right Arm] Sitting 02 Sat by Pulse Oximetry 94 L Oxygen Delivery Method Room Air Room Air - Lab Data Lab results reviewed: Yes: I reviewed the patient's lab results. Lab Results 12/17/20 14:00: WBC 10.6, RBC 4.34 L, Hgb 13.5 L, Hct 40.1 L, MCV 92.3, MCH 31.0, MCHC 33.6, RDW 14.3, Plt Count 255 D, MPV 7.6, Neut % (Auto) 79.3, Lymph % (Auto) 12.6, [place] % (Auto) 5.3, Eos % (Auto) 2.4, Baso % (Auto) 0.5, Neut # (Auto) 8.4 H, Lymph # (Auto) 1.3, [place] # (Auto) 0.6, Eos # (Auto) 0.3, Baso # (Auto) 0.1 12/17/20 14:00: Sodium 131 L, Potassium 4.0, Chloride 98, Carbon Dioxide 27, Anion Gap 10.0, BUN 31 H, Creatinine 0.90, Estimated Creat Clear 104, Estimated GFR 85, Est GFR ( Amer) 102, Glucose 461 H*, Calcium 9.1 Result diagrams: 12/17/20 14:00 12/17/20 14:00 Orders (Tests/Meds): ED MEDICATIONS Discontinued Medications Generic Name Dose Route Start Last Admin Trade Name Marleni PRN Reason Stop Dose Admin Iopamidol 70 ml 12/17/20 14:43 12/17/20 14:44 Iopamidol-370 (76%);100ml Bottle IV 12/17/20 14:44 70 ml ONCE ONE Administration Ketorolac Tromethamine 15 mg 12/17/20 14:00 12/17/20 14:00 Ketorolac 30mg/Ml Vial IV 12/17/20 14:01 15 mg ONCE ONE Administration Sodium Chloride 10 ml 12/17/20 14:43 12/17/20 14:44 Sodium Chloride 0.9% 10ml Syr (Rad Only) IV 12/17/20 14:44 10 ml ONCE ONE Administration - CT Data CT Scan: Chest (CTA) Time Received: 15:[address] Reviewed: Yes: I have viewed the radiologist's interpretation Findings Narrative: PROCEDURE: CT ANGIO CHEST CLINCIAL INDICATION: trauma and pleuritic cp, r/o fxs, r/o PE Left-sided chest pain, recent fall with injury and pain COMPARISON: No exams were available for comparison TECHNIQUE: IV Contrast: 70ML Isovue 370 Axial images obtained with sagittal and coronal reformats. All CT scans at the facility use one or more dose reduction, viz: automated exposure control, ma/kV adjustment per patient size (including targeted exams where dose is matched to indication, i.e. head), or iterative reconstruction technique. FINDINGS: HEART AND MEDIASTINAL STRUCTURES: Bolus timing is somewhat less than optimal. No evidence aortic aneurysm or dissection. No evidence of central pulmonary embolus. The peripheral pulmonary arteries are not well opacified.. No mediastinal or hilar mass or adenopathy. LUNGS AND PLEURAL SPACES: There are mild atelectatic changes in the lower lobes.
--- NOTE | 2020-12-17 13:51 | CT_ITS ---
PROCEDURE: CT ANGIO CHEST CLINCIAL INDICATION: trauma and pleuritic cp, r/o fxs, r/o PE Left-sided chest pain, recent fall with injury and pain COMPARISON: No exams were available for comparison TECHNIQUE: IV Contrast: 70ML Isovue 370 Axial images obtained with sagittal and coronal reformats. All CT scans at the facility use one or more dose reduction, viz: automated exposure control, ma/kV adjustment per patient size (including targeted exams where dose is matched to indication, i.e. head), or iterative reconstruction technique. FINDINGS: HEART AND MEDIASTINAL STRUCTURES: Bolus timing is somewhat less than optimal. No evidence aortic aneurysm or dissection. No evidence of central pulmonary embolus. The peripheral pulmonary arteries are not well opacified.. No mediastinal or hilar mass or adenopathy. LUNGS AND PLEURAL SPACES: There are mild atelectatic changes in the lower lobes. There are a few small peripheral areas of ground-glass attenuation. There are low lung volumes which could somewhat account for this finding. Cannot exclude patchy areas of infiltrate especially in the right lower lobe posteriorly. No effusions are evident. No suspicious pulmonary nodules. BONY STRUCTURES: No obvious fracture or dislocation. The mid and upper ribs have an unremarkable appearance. The lower ribs laterally are not imaged and would be better identified on an abdomen CT if clinically warranted. There are degenerative changes in the thoracic spine. UPPER ABDOMEN: Unremarkable. ADDITIONAL FINDINGS: Gynecomastia IMPRESSION: No evidence of central pulmonary embolus, aortic aneurysm, or aortic dissection. Patchy peripheral small ground-glass areas of attenuation some which may be due to atelectasis. Infiltrate is also considered to specially in the right lower lobe. There is poor inspiration Dictated by: Mauri Valenzuela MD 12/17/2020 15:01 Mauri Valenzuela MD in [place] 12/17/2020 15:01
[2020-12-17 14:05] LABS: Basophils # 0.1 K/mm3 (0-0.2); Basophils % 0.5 % (0.1-2.0); Eosinophils # 0.3 K/mm3 (0.0-0.4); Eosinophils % 2.4 % (0.1-12.0); Hematocrit 40.1 % (42.0-52.0); Hemoglobin 13.5 g/dL (14.1-18.0); Lymphocytes # 1.3 K/mm3 (0.7-4.5); Lymphocytes % 12.6 % (10-50); Mean Corpuscular HGB Conc 33.6 g/dL (31.8-35.4); Mean Corpuscular Volume 92.3 fl (80-94); Mean Platelet Volume 7.6 fl (7.4-10.4); Monocytes # 0.6 K/mm3 (0.1-1.0); Monocytes % 5.3 % (1.7-9.3); Neutrophils # 8.4 K/mm3 (1.8-7.8); Neutrophils % 79.3 % (37.0-80.0); Platelet Count 255 K/mm3 (142-424); Red Blood Count 4.34 M/mm3 (4.60-6.20); Red Cell Distribution Width 14.3 % (11.5-17.5); White Blood Count 10.6 K/mm3 (4.8-10.8)
[2020-12-17 14:10] LABS: Chloride 98 mmol/L (98-107)
[2020-12-17 14:11] LABS: Sodium 131 mmol/L (136-145)
[2020-12-17 14:14] LABS: Blood Urea Nitrogen 31 mg/dl (9-20); Calcium 9.1 mg/dl (8.4-10.2); Carbon Dioxide 27 mmol/L (22.0-30.0); Creatinine Clearance Estimated 104 mL/min (50-200); Estimated Glomerular Filt Rate 85 ml/min (>60); GFR (African American) 102 ML/MIN (>60)
[2020-12-17 14:15] LABS: Glucose 461 mg/dl (74-100)
--- NOTE | 2020-12-17 14:48 | PC.NURSE ---
pt return from CT
[2020-12-17 15:37] VITALS: BP 150/90; PULSE 102; RESP 20; TEMP 36.8; O2SAT 90
== END 2020-12-17 15:37 | disposition home or self-care (01) ==
PROVIDERS: Emergency Provider Emergency Medicine; PCP Internal Medicine Adolescent Medicine
DX: S20.212A Contusion of left front wall of thorax, initial encounter (principal); W01.0XXA Fall on same level from slipping, tripping and stumbling without subsequent striking against object, initial encounter; Y92.79 Other farm location as the place of occurrence of the external cause; Z86.16 Personal history of COVID-19; E11.9 Type 2 diabetes mellitus without complications
CPT/HCPCS: 71275; 80048; 85025; 96374; 99283; Q9967

== ENCOUNTER 2021-05-14 19:59 | Emergency (ER) | payer MEDICARE, OTHER, SELFPAY ==
[2021-05-14 20:00] VITALS: BP 130/74; PULSE 107; RESP 18; TEMP 36.7; O2SAT 99; BMI 34.0
--- NOTE | 2021-05-14 20:12 | XR_ITS ---
PROCEDURE INFORMATION: Exam: XR Lumbosacral Spine Exam date and time: 05/14/2021 8:12 PM Age: 66 years old Clinical indication: Patient HX: Low back pain after pulling TECHNIQUE: Imaging protocol: XR of the lumbosacral spine. Views: 2 or 3 views. COMPARISON: CT ABDOMEN PELVIS WO CON 07/03/2019 10:43 PM FINDINGS: Bones/joints: Moderate multilevel discogenic degenerative lumbar spine greatest at L4-L5 with posterior osteophytosis. Grade 1 retrolisthesis of L2 over L3. Soft tissues: Multiple surgical clips overlie the pelvis. IMPRESSION: Multilevel moderate discogenic degenerative changes greatest at L4-L5 without acute osseous abnormality.
--- NOTE | 2021-05-14 21:36 | HMH.EDBACK ---
ED Disposition Clinical Impression: Lumbar radiculopathy Disposition: Home, Self-Care Condition on Discharge: Good Instructions: DI for Low Back Pain Additional Instructions: use meds and call pcp for follow up Prescriptions: predniSONE [Prednisone 20mg Tab] 20 mg PO BID #10 tab Transmission Status: Pending to [facility] # Tizanidine HCl [Zanaflex 4mg tab] 4 mg PO TID PRN #21 tab PRN Reason: Muscle Spasm Transmission Status: Pending to [facility] # Referrals: Rafita Javier MD [Primary Care Provider] - - Critical Care Critical Care Time: No Attestation: On 05/14/21, the high probability of a clinically significant, sudden or life threatening deterioration of the following system(s) required my full and direct attention, intervention and personal management. The time I documented below is in addition to time spent performing reported procedures but includes the following listed in this critical care notation. Medical Decision Making - Medical Records Medical records reviewed: Yes: I reviewed the patient's medical records. - Jcarlos Inquiry Pt receiving controlled substance: No Vital Signs: 05/14/21 20:00 Temperature 98.0 F Temperature Source Oral Pulse Rate [Left Radial] 107 H Respiratory Rate 18 Blood Pressure [Right Arm] 130/74 Blood Pressure Mean [Right Arm] 92 Blood Pressure Source [Right Arm] Automatic Cuff Blood Pressure Position [Right Arm] Sitting 02 Sat by Pulse Oximetry 99 Oxygen Delivery Method Room Air Orders (Tests/Meds): ED MEDICATIONS Discontinued Medications Generic Name Dose Route Start Last Admin Trade Name Freq PRN Reason Stop Dose Admin Diazepam 5 mg 05/14/21 22:14 05/14/21 22:28 Diazepam 5mg Tablet PO 05/14/21 22:15 5 mg ONCE ONE Administration Hydromorphone HCl 1 mg 05/14/21 22:13 05/14/21 22:28 Hydromorphone 2mg/Ml Syringe IV 05/14/21 22:14 1 mg ONCE ONE Administration Ketorolac Tromethamine 30 mg 05/14/21 22:14 05/14/21 22:28 Ketorolac 30mg/Ml Vial IV 05/14/21 22:15 30 mg ONCE ONE Administration Methylprednisolone Sodium Succinate 125 mg 05/14/21 22:13 05/14/21 22:28 Methylprednisolone Sod Succ 125mg Vial IV 05/14/21 22:14 125 mg ONCE ONE Administration - Radiology Data #1 Image(s): L-Spine Image Reviewed: Yes I reviewed the patient's radiology image, Yes I have reviewed radiologist's interpretation Preliminary Findings: Abnormal (see report ) Medical Decision Narrative: has acute lumbar radicular pain with no cauda equina - will start meds and have pt call pcp for follow up Back Pain HPI - General Chief Complaint: Back Pain/Injury Stated Complaint: low back pain Time Seen by Provider: 05/14/21 20:30 Mode of Arrival: Wheelchair Source of Information: Patient, Medical Record Limitations: No Limitations Description of Symptoms (Recalled from ER Triage Doc. by RN): c/o lower back pain after pt has been pullling weeds in his garden for the past week. States he has a hard time moving now and the pain increases when he moves - History of Present Illness HPI Narrative: progressive lumbar back pain with no radiation but no cauda equina sx - no fever and no trauma Complaint: back pain Onset (ago): day(s) Duration: constant Similar Symptoms Previously: No Location: lumbar spine Severity: moderate Quality: sharp Exacerbating factors: movement Context: turning/twisting Associated symptoms: denies other symptoms - Related Data Previous Rx's Medication Instructions Recorded Doxycycline Hyclate [Doxycycline 100 mg PO BID 10 Days #20 cap 11/22/20 100mg Capsule] Insulin Glargine,Hum.rec.anlog 20 unit SQ HS insuln.pen 11/22/20 [Lantus Solostar 100 Units/mL 3mL flexpen] Promethazine/Dextromethorphan 5 ml PO Q6HP PRN #240 ml 11/22/20 [Promethazine-Dm Syrup] predniSONE [Deltasone 20mg 20 mg PO BID 7 Days #14 tab 11/22/20 tablet] Tiza
[2021-05-14 23:05] VITALS: BP 124/72; PULSE 89; RESP 18; TEMP 36.7; O2SAT 99
== END 2021-05-14 23:07 | disposition home or self-care (01) ==
PROVIDERS: Emergency Provider Emergency Medicine; PCP Internal Medicine Adolescent Medicine
DX: M54.16 Radiculopathy, lumbar region (principal); X50.3XXA Overexertion from repetitive movements, initial encounter; Y92.017 Garden or yard in single-family (private) house as the place of occurrence of the external cause; E11.9 Type 2 diabetes mellitus without complications; Z79.84 Long term (current) use of oral hypoglycemic drugs; Z85.038 Personal history of other malignant neoplasm of large intestine
CPT/HCPCS: 96374; 72100; 96375; 99281; 99282

== ENCOUNTER 2021-06-21 16:58 | Emergency (ER) | payer MEDICARE, OTHER, SELFPAY ==
[2021-06-21] VITALS (12 sets, daily range): BP systolic 109–149; BP diastolic 58–90; PULSE 87–103; RESP 16–26; TEMP 36.6–36.7; O2SAT 93–98; BMI 30.8; BMI 26.0
--- NOTE | 2021-06-21 17:00 | CT_ITS ---
PROCEDURE: CT HEAD/BRAIN WO CON CLINICAL INDICATION: Stroke Alert Head injury with headache/pain, contusion, abrasion or hematoma with seizure COMPARISON: No exams were available for comparison TECHNIQUE: Axial images obtained. All CT scans at the facility use one or more dose reduction, viz: automated exposure control, ma/kV adjustment per patient size (including targeted exams where dose is matched to indication, i.e. head), or iterative reconstruction technique. FINDINGS: No midline shift, mass effect, intracranial hemorrhage, hydrocephalus, or extra-axial fluid collection is evident. There is generalized atrophy. There is an air-fluid level in the right globe. The calvarium has an unremarkable appearance. No mastoid effusion. No sinus air-fluid level. IMPRESSION: No acute intracranial findings. Air-fluid level in the right globe. There is history of recent eye surgery. Please correlate with physical exam and clinical findings Dictated by: Mauri Valenzuela MD 06/21/2021 17:43 Mauri Valenzuela MD in [place] 06/21/2021 17:43
--- NOTE | 2021-06-21 17:01 | PC.NURSE ---
pt is MD john at bedside
--- NOTE | 2021-06-21 17:01 | PC.NURSE ---
Pt is combative upon arrival.
--- NOTE | 2021-06-21 17:11 | PC.NURSE ---
Pt to rad.
--- NOTE | 2021-06-21 17:12 | CT_ITS ---
PROCEDURE: CT CERVICAL SPINE WO CON CLINICAL INDICATION: head trauma Neck injury with pain, contusion/abrasion or hematoma, cervical sprain/strain the COMPARISON: No exams were available for comparison TECHNIQUE: Axial images obtained with sagittal and coronal reformats. All CT scans at the facility use one or more dose reduction, viz: automated exposure control, ma/kV adjustment per patient size (including targeted exams where dose is matched to indication, i.e. head), or iterative reconstruction technique. Axial spiral CT scanning performed of the cervical spine beginning at the base of the skull and continuing to the upper T-spine. 3-D multiplanar reconstruction with 3-D manipulation of volumetric data set in image rendering was completed by the radiologist and/or technologist with the supervision of the radiologist on independent workstation. FINDINGS: There is generalized osteopenia. No acute fracture or dislocation. There is degenerative disc disease at C5-C6 and C6-C7. Foraminal narrowing is present on the left at C3-C4. There is mild degenerative disc disease with 2 mm anterolisthesis of C3 on C4. Lung apices are clear IMPRESSION: Degenerative changes, no acute fracture Dictated by: Mauri Valenzuela MD 06/21/2021 17:45 Mauri Valenzuela MD in [facility] 06/21/2021 17:45
--- NOTE | 2021-06-21 17:12 | PC.WOUNDNOTE ---
1657 Stroke alert called.
--- NOTE | 2021-06-21 17:13 | XR_ITS ---
PROCEDURE INFORMATION: Exam: XR Chest Exam date and time: 06/21/2021 5:13 PM Age: 66 years old Clinical indication: Cough and shortness of breath; Patient HX: Fall TECHNIQUE: Imaging protocol: XR of the chest. Portable AP supine exam 5:58 p.m. Views: 1 view. COMPARISON: CR XR CHEST 2V 12/13/2020 4:33 PM FINDINGS: Lungs: Hypoventilation/low lung volumes, with bilateral lower pulmonary volume loss. No focal consolidation. Chronic calcified granuloma suggested at the lateral left base. Pleural spaces: Unremarkable. No significant pleural effusion. No pneumothorax. New Heart/Mediastinum: Cardiac size appears borderline enlarged, but is accentuated by portable AP technique. Bones/joints: A posterior left 6th rib fracture deformity is new compared with prior chest x-ray from 12/13/2020, there is dense surrounding callus formation, suggesting a subacute injury in the interval. Mild spinal degenerative changes. Bilateral shoulder arthritis. 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 IMPRESSION: 1. Posterior left 6th rib fracture is new compared with the previous exam from 12/13/2020, but appears likely subacute, with dense callus formation. 2. Hypoventilation, low lung volumes. No focal consolidation. 3. No pleural effusion or pneumothorax. 4. Borderline cardiomegaly. 5. Additional nonemergency and chronic findings as above.
--- NOTE | 2021-06-21 17:13 | XR_ITS ---
PROCEDURE INFORMATION: Exam: XR Pelvis Exam date and time: 06/21/2021 5:13 PM Age: 66 years old Clinical indication: Pelvic pain; Patient HX: Fall TECHNIQUE: Imaging protocol: XR pelvis. Two AP portable images are received Views: 1 or 2 view. COMPARISON: CT ABDOMEN PELVIS WO CON 07/03/2019 10:43 PM FINDINGS: Tubes, catheters and devices: Bilateral lower pelvic surgical clips. Bones/joints: No definite fracture or dislocation. Visualization of the sacrum slightly limited by overlying bowel content. Degenerative changes in the lumbar spine, better seen on prior CT, with multilevel disc narrowing, spondylosis, and facet arthropathy. Soft tissues: No acute findings in the soft tissues. Gastrointestinal tract: Mild gaseous distention of large and small intestinal loops, no significantly dilated loops to suggest obstruction. IMPRESSION: 1. No fracture or dislocation. 2. Study slightly limited by bowel gas and portable technique. 3. Spinal degenerative changes. 4. Additional nonemergency and chronic findings as above.
[2021-06-21 17:19] LABS: Basophils # 0.1 K/mm3 (0-0.2); Basophils % 0.2 % (0.1-2.0); Hematocrit 39.5 % (42.0-52.0); Hemoglobin 12.9 g/dL (14.1-18.0); Lymphocytes # 1.3 K/mm3 (0.7-4.5); Mean Corpuscular HGB Conc 32.7 g/dL (31.8-35.4); Mean Corpuscular Hemoglobin 30.1 pg (27.0-31.2); Mean Corpuscular Volume 91.9 fl (80-94); Mean Platelet Volume 8.1 fl (7.4-10.4); Monocytes # 0.9 K/mm3 (0.1-1.0); Monocytes % 2.8 % (1.7-9.3); Neutrophils # 29.9 K/mm3 (1.8-7.8); Platelet Count 482 K/mm3 (142-424); Red Cell Distribution Width 14.1 % (11.5-17.5); White Blood Count 32.1 K/mm3 (4.8-10.8)
--- NOTE | 2021-06-21 17:21 | ECG_ITS ---
APPROVED REPORT Exam: Resting ECG HR:101 bpm ECG Measurements Heart Rate 101 AXES ME 140 P -1 QRSd 84 QRS 19 QT 366 T 35 QTc 474 Conclusion Sinus tachycardia Otherwise normal ECG Electronically signed by : Rafita Javier MD 06/22/2021 11:44:29
[2021-06-21 17:22] LABS: Microscopic, Urine URINE MICROSCOPIC (MICROSCOPIC)
[2021-06-21 17:25] LABS: Appearance,Urine CLEAR (Clear); Bilirubin,Urine Negative (Negative); Blood, Urine 3+ (Negative); Color,Urine YELLOW (Yellow); Glucose,Urine (UA) 3+ (Negative); Ketones,Urine Negative (Negative); Leukocyte Esterase,Urine Negative (Negative); Nitrate,Urine Negative (Negative); PH,Urine 5.5 (5.0-8.5); Protein,Urine Negative (Negative); Urobilinogen,Urine 0.2 EU/dl (0.2)
[2021-06-21 17:26] LABS: Acetone, Serum (Rapid) None Detected (None Detect)
--- NOTE | 2021-06-21 17:26 | PC.NURSE ---
returned with patient from CT at this time. Patient had ACLS monitoring enroute
--- NOTE | 2021-06-21 17:27 | HMH.EDGENADL ---
ED Disposition Clinical Impression: New onset seizure, Hyperglycemia, Medical non-compliance, Metabolic acidosis Forehead contusion Qualifiers: Encounter type: initial encounter Qualified Code(s): S00.83XA - Contusion of other part of head, initial encounter Disposition: Admitted As Inpatient Condition on Discharge: Serious Referrals: Provider,Referral, MD [Primary Care Provider] - - Critical Care Critical Care Time: Yes Attestation: On , the high probability of a clinically significant, sudden or life threatening deterioration of the following system(s) required my full and direct attention, intervention and personal management. The time I documented below is in addition to time spent performing reported procedures but includes the following listed in this critical care notation. Total Critical Care Time: 60 Vital system(s) involved:: Central Nervous System, Metabolic Failure My critical care processes included: Assessment & monitoring of V/S, Initial and Re-exams, Data Review/Interpretation, Coordinating Care, Medication Orders and management, Documentation Medical Decision Making - Jcarlos Inquiry Pt receiving controlled substance: Yes (ativan) Jcarlos was queried for this patient: No Reason not queried -: Emergent pt cond-no time Risks and benefits of using a controlled substance: were not discussed with pt by me Vital Signs: 06/21/21 16:58 06/21/21 18:02 06/21/21 18:30 Temperature 97.8 F Temperature Source Rectal Pulse Rate 101 H Pulse Rate [Right] 103 H Respiratory Rate 26 H 19 21 Blood Pressure 109/72 L 143/85 H Blood Pressure [Right Arm] 146/77 H Blood Pressure Mean Blood Pressure Mean [Right Arm] 100 02 Sat by Pulse Oximetry 97 94 L Oxygen Delivery Method Nasal Cannula Nasal Cannula Oxygen Flow Rate (LPM) 2 2 06/21/21 18:45 Temperature Temperature Source Pulse Rate 100 H Pulse Rate [Right] Respiratory Rate 18 Blood Pressure 131/80 Blood Pressure [Right Arm] Blood Pressure Mean 89 Blood Pressure Mean [Right Arm] 02 Sat by Pulse Oximetry 96 Oxygen Delivery Method Nasal Cannula Oxygen Flow Rate (LPM) 4 - Lab Data Lab Results 06/21/21 17:05: WBC 32.1 H*, RBC 4.30 L, Hgb 12.9 L, Hct 39.5 L, MCV 91.9, MCH 30.1, MCHC 32.7, RDW 14.1, Plt Count 482 H, MPV 8.1, Neut % (Auto) 93.0 H, Lymph % (Auto) 4.0 L, Bennett % (Auto) 2.8, Eos % (Auto) 0.0 L, Baso % (Auto) 0.2, Neut # (Auto) 29.9 H, Lymph # (Auto) 1.3, Bennett # (Auto) 0.9, Eos # (Auto) 0.0, Baso # (Auto) 0.1, Total Counted 100, Neutrophils % (Manual) 86 H, Band Neutrophils % 3.0, Lymphocytes % (Manual) 7 L, Monocytes % (Manual) 2, Eosinophils % (Manual) 2, Platelet Estimate Slight increase 06/21/21 17:05: Sodium 131 L, Potassium 3.8, Chloride 92 L, Carbon Dioxide 17 L, Anion Gap 25.8 H, BUN 28 H, Creatinine 1.00, Estimated GFR 75, Est GFR ( Amer) 90, Glucose 801 H*, Calcium 9.4, Total Bilirubin 0.6, AST 29, ALT 39, Alkaline Phosphatase 123, Total Protein 7.0, Albumin 4.2, Globulin 2.8, Albumin/Globulin Ratio 1.5 06/21/21 17:05: Acetone Level None detected 06/21/21 17:05: Urine Color Yellow, Urine Appearance Clear, Urine pH 5.5, Ur Specific Mir[place]te 1.010, Urine Protein Negative, Urine Glucose (UA) 3+, Urine Ketones Negative, Urine Blood 3+, Urine Nitrate Negative, Urine Bilirubin Negative, Urine Urobilinogen 0.2, Ur Leukocyte Esterase Negative, Urine RBC 3-5, Urine WBC None, Ur Squamous Epith Cells Occasional, Urine Bacteria Trace 06/21/21 17:05: Urine Opiates Screen Negative, Urine Methadone Screen Negative, Ur Barbituates Screen Negative, Ur Phencyclidine Scrn Negative, Ur Amphetamines Screen Negative, U Benzodiazepines Scrn Negative, Urine Cocaine Screen Negative, U Marijuana (THC) Screen Negative 06/21/21 17:05: Plasma/Serum Alcohol < 10 06/21/21 17:56: Specimen Source L/r, O2 % 3, ABG pH 7.18 L*, ABG pCO2 36.1, ABG pO2 124.1 H, ABG HCO3 13.1 L, ABG Total CO2 14.2 L, ABG O2 Saturation 98, ABG Base Excess -15.3 L, Mauri Test Y 06/21
[2021-06-21 17:28] LABS: Alanine Aminotransferase 39 U/L (12-78); Albumin Level 4.2 g/dl (3.5-5.0); Albumin/Globulin Ratio 1.5 (1.1-1.8); Alkaline Phosphatase 123 U/L (38-126); Anion Gap 25.8 mEq/L (5-15); Aspartate Amino Transferase 29 U/L (17-59); Bilirubin,Total 0.6 mg/dl (0.2-1.3); Blood Urea Nitrogen 28 mg/dl (9-20); Calcium 9.4 mg/dl (8.4-10.2); Carbon Dioxide 17 mmol/L (22.0-30.0); Chloride 92 mmol/L (98-107); Estimated Glomerular Filt Rate 75 ml/min (>60); GFR (African American) 90 ML/MIN (>60); Globulin 2.8 g/dL (1.3-3.2); Potassium 3.8 mmoL/L (3.5-5.1); Sodium 131 mmol/L (136-145)
[2021-06-21 17:32] LABS: MANUAL DIFFERENTIAL MANUAL DIFFERENTIAL (MANUAL DIFF)
[2021-06-21 17:35] LABS: Ethyl Alcohol < 10 mg/dl (0-10)
[2021-06-21 17:39] LABS: Amphetamine/Metha Screen,Urine Negative ng/ml (<1000); Bacteria,Urine Trace /lpf; Squamous Epithelial Cell,Urine Occasional #/hpf (0-5)
[2021-06-21 17:40] LABS: Barbiturates Screen,Urine Negative ng/ml (<200); Benzodiazepines Screen,Urine Negative ng/ml (<200)
[2021-06-21 17:41] LABS: Cannabinoid Screen,Urine Negative ng/ml (<50); Glucose 801 mg/dl (74-100)
[2021-06-21 17:42] LABS: Cocaine Screen,Urine Negative ng/ml (<300); Methadone Screen,Urine Negative ng/ml (<300)
[2021-06-21 17:42] LABS: Coronavirus 19, PCR Not Detected (NotDetected); Influenza A, PCR Not Detected (NotDetected); Influenza B, PCR Not Detected (NotDetected)
[2021-06-21 17:43] LABS: Opiate Screen,Urine Negative ng/ml (<300); Phencyclidine Screen,Urine Negative ng/ml (<25)
--- NOTE | 2021-06-21 17:44 | PC.NURSE ---
notified ER of pt glucose 801, called critical per lab staff, pt name and
--- NOTE | 2021-06-21 17:49 | PC.NURSE ---
aware of glucose
--- NOTE | 2021-06-21 17:54 | PC.NURSE ---
calling [facility] at this time
[2021-06-21 17:57] LABS: ABG Base Excess -15.3 mmol/L (-2.4-2.3); ABG HCO3 13.1 mmhg (22.0-26.0); ABG Oxygen Saturation 98 % (90-100); ABG PCO2 36.1 mmhg (35.0-45.0); ABG PO2 124.1 mmhg (80-100); ABG TCO2 14.2 mmhg (23-27)
[2021-06-21 17:58] LABS: Allen's Test Y; Oxygen 3 %; Source L/R
[2021-06-21 17:59] LABS: ABG PH 7.18 mmol/L (7.35-7.45)
--- NOTE | 2021-06-21 18:03 | PC.NURSE ---
contacted [employer] per ER MD request to check weather for possible flight transfer. [employer] [place] states weather is okay at this time per [place] helicopter. States to let them know when/if ready for pt transfer. Notified ER of this.
--- NOTE | 2021-06-21 18:08 | PC.NURSE ---
dr verdin speaking to dr griffin at .
--- NOTE | 2021-06-21 18:10 | PC.NURSE ---
[facility] and [facility] pt is not accepted at either at this time.
--- NOTE | 2021-06-21 18:16 | PC.NURSE ---
JENNIFER BURNS speaking with pt step son at this time at BS
--- NOTE | 2021-06-21 18:20 | PC.NURSE ---
Calling at this time.
--- NOTE | 2021-06-21 18:22 | PC.NURSE ---
[facility] returned call and provider speaking with Dr Davalos
--- NOTE | 2021-06-21 18:28 | PC.NURSE ---
[facility] is at capacity, will try [facility]
--- NOTE | 2021-06-21 18:36 | PC.NURSE ---
[facility] to get in touch with neurology Dr Rodriges and return call.
--- NOTE | 2021-06-21 18:38 | PC.NURSE ---
Unable to make any contact with [facility]. Calling [facility].
--- NOTE | 2021-06-21 18:51 | PC.NURSE ---
2500mL of turbid urine emptied from cath bag.
--- NOTE | 2021-06-21 18:52 | PC.NURSE ---
[facility] has accept pt, waiting on Hospitalist to return call and bed availability
[2021-06-21 19:06] LABS: Eosinophils % 2 % (0-3); Lymphocytes % 7 % (10-50); Monocytes % 2 % (2-9); Neutrophils % 86 % (42-76); Total Cells Counted 100
[2021-06-21 19:07] LABS: Platelet Estimate Slight Increase
--- NOTE | 2021-06-21 19:11 | PC.NURSE ---
GAVE REPORT TO ISA MIGUEL AT THIS TIME
--- NOTE | 2021-06-21 19:54 | PC.NURSE ---
1950 was having [facility] paged for ED . Dr. Zhang now covering for [facility] ED to wait for his arrival to discuss patient
--- NOTE | 2021-06-21 19:56 | PC.NURSE ---
call to [facility] re: return call from hospitalist, drilling field operator states she has paged him twice and he has not returned her pages. message relayed to
[2021-06-21 20:08] LABS: POC Glucose,Bedside 535 (70-110)
--- NOTE | 2021-06-21 20:11 | PC.NURSE ---
Anoop speaking with [facility] MD at this time
--- NOTE | 2021-06-21 20:27 | PC.NURSE ---
FSBS 535 @ 2000 insulin drip decreased to 5units/hr
--- NOTE | 2021-06-21 21:09 | PC.NURSE ---
FSBS 377 insulin drip decreased to 2.5 units/hr
[2021-06-21 21:26] LABS: POC Glucose,Bedside 377 (70-110)
--- NOTE | 2021-06-21 21:32 | PC.NURSE ---
Report called to MYRIAM Fraga at this time
--- NOTE | 2021-06-21 22:04 | PC.NURSE ---
patient up to floor via stretcher.
[2021-06-22] VITALS: BP 113/71; BP 125/84; PULSE 75; PULSE 78; RESP 18; TEMP 36.7; O2SAT 100
--- NOTE | 2021-06-22 00:24 | HMH.HPDC ---
General - General Admission date:: 06/21/21 Discharge date: 06/22/21 *Admission Date: 06/21/21 *Chief complaint: seizure *History of present illness: this patient presented to the ed with new onset of sz - ought in by ambulance as a stroke alert. Patient reportedly fell at home striking his head on the fireplace. EMS personnel report the patient had a seizure and vomiting after he was picked up. They tried to arrange a helicopter to transport him by air ambulance from our helicopter pad to [facility], but helicopter could not transport due to weather. The patient on arrival here answers questions. He is able to tell me his name and is denying pain, but complaining that he is going to throw up. He had a generalized tonic-clonic seizure shortly after arrival. He is reported to have had right eye surgery for a fungal infection this past Sunday 3 days ago. He is diabetic. on states that the patient is noncompliant with his diabetes regimen and in fact is in denial that he has diabetes. Son describes recent worsening symptoms of diabetes including weight loss and polyphagia. He also says that he injured his back pulling on some stuff a couple of weeks ago and last week got put on Decadron by his primary care provider, which she feels may have exacerbated his diabetes. His reports that he has had severe shaking of his left arm at night like Parkinson's disease for the past 2 weeks. They confirm that he had surgery on his right eye on Sunday. For the past couple of days she says that he has been weak, shaky, unsteady, and disoriented. She apparently left the house today and came back in to find him laying down on the fireplace with a bump on his head and confusion. pt had 2 sz in the ed and was started on keppra and on insulin drip and admitted for ivf - [facility] History I have reviewed the patient's past medical history: Yes Medical History: Reports:: Diabetes Mellitus Type 2 Denies:: Cancer, Diabetes Mellitus Type 1, MRSA *Have you ever received a pneumonia vaccine?: No *Have you received a flu vaccine this season?: No Other Surgeries: Yes: Cancer Surgery, Colonoscopy, Colon Resection, EGD Amputation: No Fractures: Yes (FINGERS,ANKLE,TOES) - *Social History Smoking Status: Never smoker Alcohol Intake: never Substance Use Type: denies use *Occupational Status:: employed Housing: house Household Members: spouse *Travel in the last 8 weeks: None Family Hx:: No significant family history Review of Systems - Review of Systems Review of systems:: pertinent systems reviewed and negative unless documented below - Constitutional Denies fever(s), Denies headache(s) - Eyes Reports other (recent eye surg ) - ENT Denies sore throat - *Cardiovascular Denies chest pain, Denies shortness of breath - *Respiratory Denies cough - *Gastrointestinal Denies abdominal pain - *Genitourinary Denies blood in urine - *Musculoskeletal Denies joint pain - Integumentary/Breasts Denies rash - *Neurologic Denies headache(s), Denies seizure-like activity - Psychiatric Denies anxiety Exam Vital signs and Labs for Last 24 Hours: Temp Pulse Resp BP Pulse Ox 98.1 F 97 H 18 127/74 97 06/21/21 22:16 06/21/21 22:16 06/21/21 22:16 06/21/21 22:16 06/21/21 20:00 Laboratory Results - last 24 hr 06/21/21 17:05: WBC 32.1 H*, RBC 4.30 L, Hgb 12.9 L, Hct 39.5 L, MCV 91.9, MCH 30.1, MCHC 32.7, RDW 14.1, Plt Count 482 H, MPV 8.1, Neut % (Auto) 93.0 H, Lymph % (Auto) 4.0 L, Archuleta % (Auto) 2.8, Eos % (Auto) 0.0 L, Baso % (Auto) 0.2, Neut # (Auto) 29.9 H, Lymph # (Auto) 1.3, Archuleta # (Auto) 0.9, Eos # (Auto) 0.0, Baso # (Auto) 0.1, Total Counted 100, Neutrophils % (Manual) 86 H, Band Neutrophils % 3.0, Lymphocytes % (Manual) 7 L, Monocytes % (Manual) 2, Eosinophils % (Manual) 2, Platelet Estimate Slight increase 06/21/21 17:05: Sodium 131 L, Potassium 3.8, Chloride 92 L, Carbon Dioxide 17 L, Anion Gap 2
[2021-06-22 00:33] LABS: POC Glucose,Bedside 256 (70-110)
[2021-06-22 00:33] LABS: POC Glucose,Bedside 306 (70-110)
[2021-06-22 00:45] VITALS: BP 111/71; PULSE 84; O2SAT 99
--- NOTE | 2021-06-22 01:29 | PC.NURSE ---
Late entry: Pt was admitted on insulin gtt. He was A&Ox4 during admission. He was in seizure precautions. F/c patent with hematuria present. Was notified at 5889 that bed was available at [facility] and report could be given at [phone]. 0326-Report was given to MYRIAM Mathias. Stated Dr. Stout was the accepting doctor. He stated patient would be going to bed #2. Manish Castano was notified at 0009 that patient was admitted to [facility] ICU and given phone number and bed number. 0059-Pt left the floor with EMS via stretcher for transfer.
[2021-06-22 03:44] LABS: POC Glucose,Bedside 210 (70-110)
== END 2021-06-22 00:59 | disposition home or self-care (01) ==
LOC: ER 20:24 → 2ND 21:23
PROVIDERS: Emergency Provider Emergency Medicine; Visit Provider Emergency Medicine
DX: R56.9 Unspecified convulsions (principal); S00.83XA Contusion of other part of head, initial encounter; E87.2 Acidosis; W18.39XA Other fall on same level, initial encounter; Y92.019 Unspecified place in single-family (private) house as the place of occurrence of the external cause; E11.65 Type 2 diabetes mellitus with hyperglycemia; Z79.84 Long term (current) use of oral hypoglycemic drugs; Z11.52 Encounter for screening for COVID-19
CPT/HCPCS: 70450; 71045; 72125; 72170; 80053; 80305; 81001; 82009; 82803; 82962; 85007; 85025; 93005; 96365; 96366; 96367; 96375; 99285; J1953; J2405; U0003

== ENCOUNTER 2021-07-09 09:41 | Outpatient (CLI) | payer MEDICARE, OTHER, SELFPAY ==
[2021-07-09 09:50] VITALS: BP 92/54; PULSE 105; RESP 16; TEMP 37.2; O2SAT 97
[2021-07-09 10:07] LABS: POC Glucose,Bedside 203 (70-110)
== END 2021-07-09 11:08 | disposition home or self-care (01) ==
LOC: INF 09:43
PROVIDERS: PCP Internal Medicine Adolescent Medicine; Visit Provider Internal Medicine Infectious Disease
DX: G40.89 Other seizures (principal); E11.65 Type 2 diabetes mellitus with hyperglycemia
CPT/HCPCS: 82962; 96365

== ENCOUNTER → 2021-07-10 09:45 | Outpatient (CLI) | payer MEDICARE, OTHER, SELFPAY ==
[2021-07-10 10:00] VITALS: BP 125/79; PULSE 78; RESP 18; TEMP 36.8; O2SAT 98
[2021-07-10 10:26] LABS: POC Glucose,Bedside 166 (70-110)
[2021-07-10 11:16] VITALS: BP 115/60; PULSE 70; RESP 17; TEMP 36.9; O2SAT 98
== END ==
PROVIDERS: PCP Internal Medicine Adolescent Medicine; Visit Provider Internal Medicine Infectious Disease
DX: G40.89 Other seizures (principal); E11.65 Type 2 diabetes mellitus with hyperglycemia; Z79.4 Long term (current) use of insulin
CPT/HCPCS: 82962; 96365; G0463

== ENCOUNTER 2021-07-11 09:20 | Outpatient (CLI) | payer MEDICARE, OTHER, SELFPAY ==
[2021-07-11 09:57] VITALS: BP 158/85; PULSE 86; RESP 18; TEMP 36.7; O2SAT 92
[2021-07-11 10:55] VITALS: BP 123/70; PULSE 85; RESP 18; TEMP 36.7; O2SAT 97
== END 2021-07-11 10:55 | disposition home or self-care (01) ==
LOC: INF 09:23
PROVIDERS: PCP Internal Medicine Adolescent Medicine; Visit Provider Internal Medicine Infectious Disease
DX: G40.89 Other seizures (principal); E11.65 Type 2 diabetes mellitus with hyperglycemia
CPT/HCPCS: 96365; G0463

== ENCOUNTER 2021-07-12 09:37 | Outpatient (CLI) | payer MEDICARE, OTHER, SELFPAY ==
[2021-07-12 09:43] VITALS: BMI 30.1
[2021-07-12 10:00] VITALS: BP 142/97; PULSE 90; RESP 18; O2SAT 96
[2021-07-12 10:13] LABS: Basophils # 0.1 K/mm3 (0-0.2); Basophils % 0.7 % (0.1-2.0); Eosinophils # 0.3 K/mm3 (0.0-0.4); Eosinophils % 4.3 % (0.1-12.0); Hematocrit 30.1 % (42.0-52.0); Hemoglobin 9.5 g/dL (14.1-18.0); Lymphocytes % 15.3 % (10-50); Mean Corpuscular HGB Conc 31.6 g/dL (31.8-35.4); Mean Corpuscular Volume 91.8 fl (80-94); Mean Platelet Volume 7.8 fl (7.4-10.4); Monocytes # 0.4 K/mm3 (0.1-1.0); Monocytes % 6.2 % (1.7-9.3); Neutrophils # 4.9 K/mm3 (1.8-7.8); Neutrophils % 73.4 % (37.0-80.0); Platelet Count 384 K/mm3 (142-424); Red Blood Count 3.27 M/mm3 (4.60-6.20); White Blood Count 6.7 K/mm3 (4.8-10.8)
[2021-07-12 10:24] LABS: Potassium 3.4 mmoL/L (3.5-5.1); Sodium 137 mmol/L (136-145)
[2021-07-12 10:26] LABS: Blood Urea Nitrogen 8 mg/dl (9-20); Creatinine Clearance Estimated 95 mL/min (50-200); Estimated Glomerular Filt Rate 135 ml/min (>60); GFR (African American) 163 ML/MIN (>60)
[2021-07-12 10:27] LABS: Alanine Aminotransferase 11 U/L (12-78); Albumin Level 3.4 g/dl (3.5-5.0); Albumin/Globulin Ratio 1.1 (1.1-1.8); Alkaline Phosphatase 129 U/L (38-126); Aspartate Amino Transferase 15 U/L (17-59); Bilirubin,Total 0.3 mg/dl (0.2-1.3); Carbon Dioxide 28 mmol/L (22.0-30.0); Globulin 3.2 g/dL (1.3-3.2); Glucose 143 mg/dl (74-100); Total Protein,Serum 6.6 g/dl (6.3-8.2)
[2021-07-12 10:32] LABS: C-Reactive Protein 93.3 mg/L (0-4)
[2021-07-12 11:35] VITALS: BP 147/87; PULSE 80; RESP 18
[2021-07-12 11:49] LABS: Anion Gap 12.4 mEq/L (5-15); Chloride 100 mmol/L (98-107)
== END 2021-07-12 11:35 | disposition home or self-care (01) ==
LOC: INF 09:39
PROVIDERS: Visit Provider Internal Medicine Infectious Disease
DX: M46.46 Discitis, unspecified, lumbar region (principal); G40.89 Other seizures; E11.65 Type 2 diabetes mellitus with hyperglycemia
CPT/HCPCS: 80053; 85025; 86140; 96365

== ENCOUNTER 2021-07-13 09:12 | Outpatient (CLI) | payer MEDICARE, OTHER, SELFPAY ==
[2021-07-13 10:07] VITALS: BP 148/93; PULSE 81; RESP 18; TEMP 36.4; O2SAT 98
[2021-07-13 11:25] VITALS: BP 137/87; PULSE 67; RESP 18; O2SAT 99
== END 2021-07-13 11:25 | disposition home or self-care (01) ==
LOC: INF 09:14
PROVIDERS: PCP Family Medicine; Visit Provider Internal Medicine Infectious Disease
DX: G40.89 Other seizures (principal)
CPT/HCPCS: 96365

== ENCOUNTER 2021-07-14 09:04 | Outpatient (CLI) | payer MEDICARE, OTHER, SELFPAY ==
[2021-07-14 09:19] VITALS: BP 108/90; PULSE 105; RESP 20; TEMP 36.5; O2SAT 97
[2021-07-14 09:49] VITALS: BP 114/87; PULSE 99; RESP 20; O2SAT 98
[2021-07-14 10:25] VITALS: BP 104/85; PULSE 97; RESP 20; O2SAT 98
== END 2021-07-14 10:30 | disposition home or self-care (01) ==
PROVIDERS: Visit Provider Internal Medicine Infectious Disease
DX: G40.89 Other seizures (principal); E11.65 Type 2 diabetes mellitus with hyperglycemia
CPT/HCPCS: 96365

== ENCOUNTER 2021-07-15 09:19 | Outpatient (CLI) | payer MEDICARE, OTHER, SELFPAY ==
[2021-07-15 09:30] VITALS: BP 113/62; PULSE 68; RESP 20; TEMP 36.9; O2SAT 95
[2021-07-15 10:30] VITALS: BP 117/68; PULSE 68; RESP 20; TEMP 36.9; O2SAT 95
--- NOTE | 2021-07-15 12:51 | SW/DCPLANNER ---
Addendum entered by Annalise Lopez 07/18/21 15:53: Janene w/ [employer] has stated that medications will be delivered this evening and Oscar w/ [facility] has stated that services will begin at 8AM tomorrow morning. Original Note: Dr Werner has asked that I work with this patient on setting up patient with home health for IV antibiotics. Patient is currently returning to [facility] daily for IV antibiotics stating it is now just to difficult for him. Patient stated that he resides at home with his and she would be able to administer medication. I spoke with Janene from [employer] and she stated that IV antibiotics would be covered at 100%. Patient information/order has now been faxed to [facility]. I will follow up with Vianey at [facility] once patient information is reviewed. Patient is currently at home.
== END 2021-07-15 10:30 | disposition home or self-care (01) ==
LOC: INF 09:20
PROVIDERS: PCP Family Medicine; Visit Provider Internal Medicine Infectious Disease
DX: G40.89 Other seizures (principal); E11.65 Type 2 diabetes mellitus with hyperglycemia; Z79.4 Long term (current) use of insulin
CPT/HCPCS: 96365

== ENCOUNTER → 2021-07-16 09:11 | Outpatient (CLI) | payer MEDICARE, OTHER, SELFPAY ==
[2021-07-16 09:33] VITALS: BP 148/80; PULSE 85; RESP 20; TEMP 36.5; O2SAT 100
[2021-07-16 11:00] VITALS: BP 132/82; PULSE 84; RESP 19; TEMP 36.5; O2SAT 100
== END ==
PROVIDERS: PCP Family Medicine; Visit Provider Internal Medicine Infectious Disease
DX: G40.89 Other seizures (principal); E11.65 Type 2 diabetes mellitus with hyperglycemia; Z79.4 Long term (current) use of insulin
CPT/HCPCS: 96365; G0463

== ENCOUNTER → 2021-07-17 09:28 | Outpatient (CLI) | payer MEDICARE, OTHER, SELFPAY ==
[2021-07-17 10:03] VITALS: BP 120/75; PULSE 94; RESP 18; TEMP 36.6; O2SAT 96
== END ==
PROVIDERS: PCP Family Medicine; Visit Provider Internal Medicine Infectious Disease
DX: G40.89 Other seizures (principal); E11.65 Type 2 diabetes mellitus with hyperglycemia; Z79.4 Long term (current) use of insulin
CPT/HCPCS: 96365

== ENCOUNTER 2021-07-18 07:57 | Outpatient (CLI) | payer MEDICARE, OTHER, SELFPAY ==
[2021-07-18 08:14] VITALS: BMI 30.2
[2021-07-18 08:31] LABS: Basophils % 0.5 % (0.1-2.0); Eosinophils # 0.2 K/mm3 (0.0-0.4); Hematocrit 30.4 % (42.0-52.0); Hemoglobin 9.8 g/dL (14.1-18.0); Lymphocytes # 0.8 K/mm3 (0.7-4.5); Lymphocytes % 9.7 % (10-50); Mean Corpuscular HGB Conc 32.2 g/dL (31.8-35.4); Mean Platelet Volume 7.2 fl (7.4-10.4); Monocytes # 0.5 K/mm3 (0.1-1.0); Monocytes % 5.6 % (1.7-9.3); Neutrophils # 6.8 K/mm3 (1.8-7.8); Neutrophils % 82.2 % (37.0-80.0); Platelet Count 342 K/mm3 (142-424); Red Blood Count 3.37 M/mm3 (4.60-6.20); Red Cell Distribution Width 13.9 % (11.5-17.5); White Blood Count 8.3 K/mm3 (4.8-10.8)
[2021-07-18 08:48] VITALS: BP 138/78; PULSE 88; RESP 18; O2SAT 98
[2021-07-18 09:18] LABS: Alanine Aminotransferase 11 U/L (12-78); Albumin Level 3.3 g/dl (3.5-5.0); Alkaline Phosphatase 120 U/L (38-126); Anion Gap 12.8 mEq/L (5-15); Aspartate Amino Transferase 18 U/L (17-59); Bilirubin,Total 0.3 mg/dl (0.2-1.3); Blood Urea Nitrogen 12 mg/dl (9-20); Calcium 8.9 mg/dl (8.4-10.2); Carbon Dioxide 26 mmol/L (22.0-30.0); Chloride 98 mmol/L (98-107); Creatinine Clearance Estimated 96 mL/min (50-200); Estimated Glomerular Filt Rate 113 ml/min (>60); GFR (African American) 137 ML/MIN (>60); Globulin 3.2 g/dL (1.3-3.2); Glucose 201 mg/dl (74-100); Potassium 3.8 mmoL/L (3.5-5.1); Sodium 133 mmol/L (136-145); Total Protein,Serum 6.5 g/dl (6.3-8.2)
[2021-07-18 09:23] LABS: C-Reactive Protein 120.1 mg/L (0-4)
[2021-07-18 10:20] VITALS: BP 145/86; PULSE 89; RESP 18
== END 2021-07-18 10:20 | disposition home or self-care (01) ==
LOC: INF 07:58
PROVIDERS: PCP Family Medicine; Visit Provider Internal Medicine Infectious Disease
DX: G40.89 Other seizures (principal); E11.65 Type 2 diabetes mellitus with hyperglycemia; Z79.4 Long term (current) use of insulin
CPT/HCPCS: 80053; 85025; 86140; 96365

== ENCOUNTER 2021-07-25 13:13 | Emergency (ER) | payer MEDICARE, OTHER, SELFPAY ==
[2021-07-25 13:13] VITALS: BP 141/85; PULSE 86; RESP 20; TEMP 36.9; O2SAT 95; BMI 28.8
--- NOTE | 2021-07-25 13:17 | XR_ITS ---
PROCEDURE: XR HIP RT 2-3V W/PELVIS CLINICAL INDICATION: pain COMPARISON: CR XR PELVIS 1-2V from 06/21/2021 FINDINGS: No fracture or dislocation is evident. No lytic or blastic change. Unremarkable soft tissues. Surgical clips are present in both pelvic regions. There are minimal osteoarthritic changes of the hips as seen on the AP view of the pelvis. Unremarkable SI joints IMPRESSION: Minimal osteoarthritic change of the hips Dictated by: Mauri Valenzuela MD 07/25/2021 15:03 Mauri Valenzuela MD in [facility] 07/25/2021 15:03
--- NOTE | 2021-07-25 13:17 | XR_ITS ---
PROCEDURE: XR CHEST AP CLINICAL HISTORY: picc line placement COMPARISON: CR XR CHEST PORTABLE from 11/20/2020 CR XR CHEST 2V from 12/13/[address] ANGIO CHEST from 12/17/2020 CR XR CHEST PORTABLE from 06/21/2021 FINDINGS: The cardiomediastinal silhouette and pulmonary vascularity are within normal limits. Left upper extremity PICC line has been inserted. The tip is in good position in the region the superior vena cava. Lungs are clear. There is an old left-sided 6 the rib fracture. There are degenerative changes in the shoulders. IMPRESSION: Left upper extremity PICC line in good position with tip in the region the SVC Dictated by: Mauri Valenzuela MD 07/25/2021 14:55 Mauri Valenzuela MD in [facility] 07/25/2021 14:55
--- NOTE | 2021-07-25 14:15 | ECG_ITS ---
APPROVED REPORT Exam: Resting ECG HR:85 bpm ECG Measurements Heart Rate 85 AXES FL 130 P 5 QRSd 80 QRS 16 QT 362 T 57 QTc 430 Conclusion Sinus rhythm with occasional premature ventricular complexes Otherwise normal ECG Electronically signed by : Rafita Javier MD 07/26/2021 17:35:19
--- NOTE | 2021-07-25 14:49 | HMH.EDGENADL ---
ED Disposition Clinical Impression: Osteoarthritis Qualifiers: Osteoarthritis location: hip Osteoarthritis type: primary Laterality: right Qualified Code(s): M16.11 - Unilateral primary osteoarthritis, right hip Disposition: Home, Self-Care Condition on Discharge: Good Referrals: Provider,Referral, [Primary Care Provider] - 3 days Time of Disposition: 16:57 - Critical Care Critical Care Time: No Attestation: On 07/25/21, the high probability of a clinically significant, sudden or life threatening deterioration of the following system(s) required my full and direct attention, intervention and personal management. The time I documented below is in addition to time spent performing reported procedures but includes the following listed in this critical care notation. Medical Decision Making - Medical Records Medical records reviewed: Yes: I reviewed the patient's medical records. - Jcarlos Inquiry Pt receiving controlled substance: No Vital Signs: 07/25/21 13:13 07/25/21 15:30 Temperature 98.5 F Temperature Source Oral Pulse Rate 67 Pulse Rate [Left Radial] 86 Respiratory Rate 20 18 Blood Pressure 109/65 L Blood Pressure [Right Arm] 141/85 H Blood Pressure Mean 76 Blood Pressure Mean [Right Arm] 103 Blood Pressure Source [Right Arm] Automatic Cuff Blood Pressure Position [Right Arm] Sitting 02 Sat by Pulse Oximetry 95 94 L Oxygen Delivery Method Room Air - Lab Data Lab results reviewed: Yes: I reviewed the patient's lab results. Lab Results 07/25/21 14:50: Urine Color Red, Urine Appearance Turbid, Urine pH 7.0, Ur Specific [place] 1.025, Urine Protein 2+, Urine Glucose (UA) Negative, Urine Ketones Negative, Urine Blood 3+, Urine Nitrate Positive, Urine Bilirubin Negative, Urine Urobilinogen 0.2, Ur Leukocyte Esterase Trace, Urine RBC Tntc, Urine WBC 3-5, Ur Squamous Epith Cells None, Urine Bacteria 2+ 07/25/21 16:00: WBC 8.8, RBC 2.92 L, Hgb 8.2 L, Hct 25.7 L, MCV 88.0, MCH 28.0, MCHC 31.8, RDW 14.4, Plt Count 339, MPV 8.4, Neut % (Auto) 81.3 H, Lymph % (Auto) 10.2, [place] % (Auto) 5.2, Eos % (Auto) 2.8, Baso % (Auto) 0.5, Neut # (Auto) 7.2, Lymph # (Auto) 0.9, [place] # (Auto) 0.5, Eos # (Auto) 0.3, Baso # (Auto) 0.0 07/25/21 16:00: Sodium 130 L, Potassium 4.6, Chloride 94 L, Carbon Dioxide 30, Anion Gap 10.6, BUN 9, Creatinine 0.60 L, Estimated Creat Clear 91, Estimated GFR 135, Est GFR ( Amer) 163, Glucose 245 H, Calcium 8.7, Total Bilirubin 0.1 L, AST 16 L, ALT 10 L, Alkaline Phosphatase 120, Total Protein 6.2 L, Albumin 3.1 L, Globulin 3.1, Albumin/Globulin Ratio 1.0 L Result diagrams: 07/25/21 16:00 07/25/21 16:00 Orders (Tests/Meds): ORDERS Category Date Time Status Urine Culture Stat Micro 07/25/21 14:50 Received - Radiology Data #1 Image(s): Chest Image Reviewed: Yes I reviewed the patient's radiology results Preliminary Findings: Normal/NAD #2 Image(s): Hip Image Reviewed: Yes I reviewed the patient's radiology results Preliminary Findings: Abnormal Chronic osteoarthritis Medical Decision Narrative: 66yo M presents the emergency department with complaint of decreasing muscular strength. Patient is in no acute distress on initial evaluation. His physical exam is largely unremarkable he moves all extremities without difficulty. Routine laboratory studies, chest x-ray, x-ray of the right hip are obtained. No acute finding is appreciated. Patient does have some chronic osteoarthritis of his hip and we discussed follow-up with orthopedist for possible joint injection as it is unlikely an orthopedist would want to undergo a large surgery right now while the patient is receiving infusions for fungal infection. Patient voiced understanding. Patient to follow-up with his PCP tomorrow. General Adult HPI - General Chief complaint: PAIN Stated complaint: weakness Time Seen by Provider: 07/25/21 13:30 Mode of Arrival: EMS Limitations: No Limitations Descriptio
[2021-07-25 15:00] LABS: Microscopic, Urine URINE MICROSCOPIC (MICROSCOPIC)
[2021-07-25 15:07] LABS: Appearance,Urine TURBID (Clear); Bilirubin,Urine Negative (Negative); Blood, Urine 3+ (Negative); Color,Urine RED (Yellow); Glucose,Urine (UA) Negative (Negative); Ketones,Urine Negative (Negative); Leukocyte Esterase,Urine TRACE (Negative); Nitrate,Urine POSITIVE (Negative); Protein,Urine 2+ (Negative); Specific Gravity, Urine 1.025 (1.005-1.030); Urobilinogen,Urine 0.2 EU/dl (0.2)
[2021-07-25 15:13] LABS: Bacteria,Urine 2+ /lpf; RBC,Urine TNTC #/hpf (0-3)
[2021-07-25 15:30] VITALS: BP 109/65; PULSE 67; RESP 18; O2SAT 94
[2021-07-25 16:00] VITALS: BP 118/69
[2021-07-25 16:14] LABS: Basophils % 0.5 % (0.1-2.0); Eosinophils # 0.3 K/mm3 (0.0-0.4); Eosinophils % 2.8 % (0.1-12.0); Hematocrit 25.7 % (42.0-52.0); Hemoglobin 8.2 g/dL (14.1-18.0); Lymphocytes # 0.9 K/mm3 (0.7-4.5); Lymphocytes % 10.2 % (10-50); Mean Corpuscular HGB Conc 31.8 g/dL (31.8-35.4); Mean Platelet Volume 8.4 fl (7.4-10.4); Monocytes # 0.5 K/mm3 (0.1-1.0); Monocytes % 5.2 % (1.7-9.3); Neutrophils # 7.2 K/mm3 (1.8-7.8); Neutrophils % 81.3 % (37.0-80.0); Platelet Count 339 K/mm3 (142-424); Red Blood Count 2.92 M/mm3 (4.60-6.20); Red Cell Distribution Width 14.4 % (11.5-17.5); White Blood Count 8.8 K/mm3 (4.8-10.8)
[2021-07-25 16:17] LABS: Chloride 94 mmol/L (98-107); Potassium 4.6 mmoL/L (3.5-5.1); Sodium 130 mmol/L (136-145)
[2021-07-25 16:19] LABS: Alanine Aminotransferase 10 U/L (12-78); Aspartate Amino Transferase 16 U/L (17-59); Blood Urea Nitrogen 9 mg/dl (9-20); Creatinine Clearance Estimated 91 mL/min (50-200); Estimated Glomerular Filt Rate 135 ml/min (>60); GFR (African American) 163 ML/MIN (>60)
[2021-07-25 16:20] LABS: Albumin Level 3.1 g/dl (3.5-5.0); Alkaline Phosphatase 120 U/L (38-126); Anion Gap 10.6 mEq/L (5-15); Calcium 8.7 mg/dl (8.4-10.2); Carbon Dioxide 30 mmol/L (22.0-30.0); Globulin 3.1 g/dL (1.3-3.2); Glucose 245 mg/dl (74-100); Total Protein,Serum 6.2 g/dl (6.3-8.2)
[2021-07-25 16:21] LABS: Bilirubin,Total 0.1 mg/dl (0.2-1.3)
[2021-07-25 16:30] VITALS: BP 116/64
[2021-07-25 17:01] VITALS: BP 136/98
[2021-07-25 17:03] VITALS: BP 136/98; PULSE 86; RESP 20; TEMP 36.9; O2SAT 95
--- NOTE | 2021-07-29 13:40 | SW/DCPLANNER ---
Addendum entered by Annalise Lopez 08/01/21 10:21: Stephanie with [facility] also called patient to follow up regarding bed availability at their facility. Stephanie stated that patient was in route back to [facility] ED. I will continue to assist this patient with needs once returning home. Addendum entered by Annalise Lopez 08/01/21 08:56: Genevieve with [facility] is currently reviewing patient information and stated that she will be following up with patient/ this AM. Original Note: I spoke with patients regarding plans for this patient and the need for placement from home. Patient is currently at home with home health and receiving IV antibiotics. Patient has had a recent hospital admission at [facility] in [place]. Patients stated that she is interested in the following facilities: [facility], [facility], [facility] and [facility]. Patient information has been faxed to all facilities. I will follow up with facilities and patient/family on Sunday morning.
== END 2021-07-25 17:22 | disposition home or self-care (01) ==
PROVIDERS: Emergency Provider Family Medicine
DX: M16.11 Unilateral primary osteoarthritis, right hip (principal); E11.65 Type 2 diabetes mellitus with hyperglycemia; I10 Essential (primary) hypertension; R31.9 Hematuria, unspecified; Z88.6 Allergy status to analgesic agent; Z79.899 Other long term (current) drug therapy
CPT/HCPCS: 71045; 73502; 80053; 81001; 85025; 87086; 93005; 99283

== ENCOUNTER → 2021-12-29 13:22 | Outpatient (CLI) | payer MEDICARE, OTHER, SELFPAY ==
[2021-12-29 13:32] LABS: Microscopic, Urine URINE MICROSCOPIC (MICROSCOPIC)
[2021-12-29 14:47] LABS: Appearance,Urine CLEAR (Clear); Bilirubin,Urine Negative (Negative); Blood, Urine 1+ (Negative); Color,Urine YELLOW (Yellow); Glucose,Urine (UA) Negative (Negative); Ketones,Urine Negative (Negative); Leukocyte Esterase,Urine 3+ (Negative); Nitrate,Urine POSITIVE (Negative); Protein,Urine 1+ (Negative); Urobilinogen,Urine 0.2 EU/dl (0.2)
[2021-12-29 15:21] LABS: Bacteria,Urine 4+ /lpf; Squamous Epithelial Cell,Urine Occasional #/hpf (0-5); WBC,Urine TNTC #/hpf (0-3)
== END ==
PROVIDERS: Visit Provider Family Medicine
DX: R30.0 Dysuria (principal); B96.20 Unspecified Escherichia coli [E. coli] as the cause of diseases classified elsewhere
CPT/HCPCS: 81001; 87086; 87088; 87186

== ENCOUNTER → 2022-01-16 12:38 | Outpatient (CLI) | payer MEDICARE, MEDICAID, SELFPAY ==
--- NOTE | 2022-01-16 12:49 | XR_ITS ---
FINAL REPORT CLINICAL HISTORY: . BACK PAIN, HX OF MULTIPLE SURGERIES FINDINGS: THORACIC SPINE 2 views were obtained. There is no acute fracture. Alignment is normal. There are mild degenerative changes with osteophytes. IMPRESSION: Mild degenerative change. LUMBAR SPINE Multiple views were obtained. There is fusion of the T12-L5. There are severe compression fractures of L2 and L3 with a spacer present. Alignment is normal. The disc spaces are preserved. IMPRESSION: Postoperative changes as described. Reviewed, Interpreted and Dictated by Basilio Grady III, MD Transcribed by Florecita Fong Authenticated by Basilio Grady III, MD on 01/16/2022 03:45:[address] [facility]
--- NOTE | 2022-01-16 12:50 | XR_ITS ---
FINAL REPORT CLINICAL HISTORY: KNEE PAIN, FALL FINDINGS: Three views of the right knee reveal no evidence of fracture or dislocation. The bony alignment is normal. There are mild degenerative changes. There is no evidence of joint effusion. No localized soft tissue abnormality is identified. IMPRESSION: No acute abnormality identified. Reviewed, Interpreted and Dictated by Basilio Grady III, MD Transcribed by Florecita Fong Authenticated by Basilio Grady III, MD on 01/16/2022 03:46:05 PM [facility]
== END ==
PROVIDERS: PCP Family Medicine; Visit Provider Nurse Practitioner Family
DX: M54.6 Pain in thoracic spine (principal); M54.59 Other low back pain; M25.561 Pain in right knee
CPT/HCPCS: 72084; 73562

== ENCOUNTER 2022-04-29 18:24 | Emergency (ER) | payer MEDICARE, MEDICAID, SELFPAY ==
[2022-04-29 18:35] VITALS: BP 112/79; PULSE 84; RESP 17; TEMP 36.7; O2SAT 99; BMI 28.0
[2022-04-29 18:48] VITALS: BP 112/79; PULSE 84; RESP 17; TEMP 36.7; O2SAT 99
--- NOTE | 2022-04-29 18:52 | HMH.EDUTC ---
[facility] [place] Clinical Impression: UTI (urinary tract infection) Qualifiers: Urinary tract infection type: acute cystitis Hematuria presence: with hematuria Qualified Code(s): N30.01 - Acute cystitis with hematuria Disposition: Home, Self-Care Condition on Discharge: Good Instructions: Urinary Tract Infection Additional Instructions: Increase fluids, water and not soda or tea. Can drink cranberry juice or cranberry extract. White front to back Wear cotton underwear Empty bladder after intercourse Start antibiotics immediately and make sure you take the full course although you may start to see improvement over the next 48 hours. You can eat yogurt or take probiotics to decrease diarrhea or yeast infection caused by the antibiotic Be sure to follow-up anytime for new or worsening symptoms in 48 hours for wound urine culture results be sure to let you PCP no recent urine for culture so they can request records and ensure that you have appropriate antibiotic if you are not getting better or getting worse. If symptoms worsen or do not improve return or be seen in the ER. Follow-up with primary care this week. Prescriptions: cephALEXin [Cephalexin 500mg Tab] 500 mg PO BID 10 Days #20 tab Transmission Status: Pending to [facility] Referrals: Blaze Werner MD [Primary Care Provider] - Time of Disposition: 19:09 Medical Decision Making - Jcarlos Inquiry Pt receiving controlled substance: No Vital Signs: 04/29/22 18:35 04/29/22 18:48 Temperature 98.1 F 98.1 F Temperature Source Oral Pulse Rate 84 Pulse Rate [Right Brachial] 84 Respiratory Rate 17 17 Blood Pressure 112/79 Blood Pressure [Right Arm] 112/79 Blood Pressure Mean [Right Arm] 90 Blood Pressure Source [Right Arm] Automatic Cuff Blood Pressure Position [Right Arm] Sitting 02 Sat by Pulse Oximetry 99 Oxygen Delivery Method Room Air - Lab Data Lab Results 04/29/22 18:42: Urine Color Yellow, Urine Appearance Cloudy, Urine pH 6.0, Ur Specific [place] 1.025, Urine Protein Negative, Urine Glucose (UA) Negative, Urine Ketones Negative, Urine Blood 1+, Urine Nitrate Positive A, Urine Bilirubin Negative, Urine Urobilinogen 0.2, Ur Leukocyte Esterase 3+ A Orders (Tests/Meds): ORDERS Category Date Time Status Urine Culture Stat Micro 04/29/22 18:40 [place]ceived [facility] [place] - General Chief complaint: [facility] Stated complaint: cloudy urine, midsection pain Time Seen by Provider: 04/29/22 19:09 Mode of Arrival: Ambulatory Source of Information: Patient Limitations: No Limitations Description of Symptoms (Recalled from Triage Doc. by RN): PATIENT C/O LOWER ABDOMINAL PAIN AND DISCOMFORT WITH URINATION HEENT Symptoms (Recalled from RN notes): No Resp Symptoms (Recalled from RN notes): No Skin Symptoms (Recalled from RN notes): No MS Symptoms (Recalled from RN notes): No Functional Status (Recalled from RN notes): WNL - History of Present Illness Provider Complaint: 67 yr old male presents for dark urine and pelvic pressure. pt states he self caths and he feels like he does when he has a uti - Related Data Home Medications Medication Instructions Recorded Confirmed Insulin Glargine,Hum.rec.anlog 30 unit SQ HS 06/21/21 07/18/21 [Lantus Solostar 100 Units/mL 3mL flexpen] Acetaminophen [Tylenol 325mg 650 mg PO Q4-6H PRN 07/13/21 07/18/21 Tablet] Apixaban [Eliquis 5mg Tablet] 5 mg PO BID 07/13/21 07/18/21 Docusate Sodium [Colace] 100 mg PO BID 07/13/21 07/18/21 Famotidine [Acid Heel Builder] 20 mg PO BID 07/13/21 07/18/21 Fluconazole 800 mg PO DAILY 07/13/21 07/18/21 Hydrocodone/Acetaminophen [Lortab 1 tab PO Q6HP PRN 07/13/21 07/18/21 10/325mg tablet] Metoprolol Tartrate [Lopressor 25 mg PO BID 07/13/21 07/18/21 25mg tablet] levETIRAcetam [Levetiracetam] 500 mg PO BID 07/13/21 07/18/21 Previous Rx's Medication Instructions Recorded cephALEXin [Cephalexin 500mg Tab] 500 mg PO BID
[2022-04-29 18:55] LABS: Apearance,Urine Cloudy (Clear); Color,Urine Yellow (Yellow)
[2022-04-29 18:56] LABS: Bilirubin,Urine Negative (Negative); Blood, Urine 1+ (Negative); Glucose,Urine (UA) Negative (Negative); Ketones,Urine Negative (Negative); Protein,Urine Negative (Negative); Specific Gravity, Urine 1.025 (1.005-1.030); UTC Leukocyte Esterase,Urine 3+ (Negative); UTC Nitrate,Urine Positive (Negative); Urobilinogen,Urine 0.2 EU/dl (0.2)
== END 2022-04-29 19:16 | disposition home or self-care (01) ==
PROVIDERS: Emergency Provider Nurse Practitioner Family; PCP Family Medicine
DX: N30.01 Acute cystitis with hematuria (principal); E11.9 Type 2 diabetes mellitus without complications; Z79.4 Long term (current) use of insulin; I10 Essential (primary) hypertension
CPT/HCPCS: 81003; 87086; 87088; 87186; 99212; G0463

== ENCOUNTER 2022-08-03 08:00 | Outpatient (RCR) | payer MEDICARE, MEDICAID, SELFPAY | END 2022-08-03 08:05 | disposition home or self-care (01) | LOC: PT 08:00 | PROVIDERS: PCP Family Medicine; Visit Provider Orthopaedic Surgery Orthopaedic Surgery of the Spine | DX: M54.59 Other low back pain (principal); Z98.1 Arthrodesis status | CPT/HCPCS: 97010; 97014; 97110; 97140; 97163; 97164; G0283 ==

== ENCOUNTER 2024-03-21 03:43 | Emergency (ER) | payer MEDICARE, MEDICAID, SELFPAY ==
[2024-03-21 03:46] VITALS: BP 158/86; PULSE 112; RESP 20; O2SAT 95; BMI 34.4
--- NOTE | 2024-03-21 03:55 | XR_ITS ---
PROCEDURE INFORMATION: Exam: XR Abdomen Exam date and time: 03/21/2024 4:02 AM Age: 69 years old Clinical indication: Fever and nausea and vomiting; Additional info: Fever, nausea vomiting TECHNIQUE: Imaging protocol: Radiologic exam of the abdomen. Views: Frontal supine view of the abdomen. 1 View. COMPARISON: CT ABDOMEN PELVIS WO CON 07/03/2019 10:43 PM FINDINGS: Gastrointestinal tract: No ileus or obstruction present. Bones/joints: Moderate retained stool. Prior lumbar spine surgery. IMPRESSION: Moderate retained stool. Prior lumbar spine surgery. No ileus or obstruction present.
--- NOTE | 2024-03-21 03:56 | XR_ITS ---
PROCEDURE INFORMATION: Exam: XR Chest Exam date and time: 03/21/2024 4:02 AM Age: 69 years old Clinical indication: Fever; Additional info: Fever, nausea vomiting TECHNIQUE: Imaging protocol: Radiologic exam of the chest. Views: 1 view. COMPARISON: CR XR CHEST AP 07/25/2021 2:20 PM FINDINGS: Lungs: Unremarkable. No consolidation. Pleural spaces: Unremarkable. No pleural effusion. No pneumothorax. Heart/Mediastinum: Unremarkable. No cardiomegaly. Bones/joints: Unremarkable. IMPRESSION: No acute findings.
--- NOTE | 2024-03-21 03:57 | HMH.EDGENADL ---
Discharge Plan Disposition Patient Disposition: Home, Self-Care Prescriptions Prescriptions: New sulfamethoxazole-trimethoprim 800-160 mg tablet 1 tab PO BID 7 Days Qty: 14 0RF Referrals Follow up/Referrals: Blaze Werner MD [Primary Care Provider] - See instructions Activity Restrictions/Add. Instructions Additional Instructions/Restrictions: Please take Bactrim as prescribed for treatment of possible urinary tract infection. Please follow-up with your primary care provider. Please return to the emergency department if you develop any new or worsening symptoms or become concerned for your health. Clinical Impressions Clinical Impression: Acute UTI Nausea & vomiting Qualifiers: Vomiting type: unspecified Qualified Code(s): R11.2 - Nausea with vomiting, unspecified Instructions Patient Instructions: DI for Diarrhea and Traveler's Diarrhea -- Adult, DI for Diarrhea and Traveler's Diarrhea -- Child, DI for Nausea -- Adult, DI for Nausea -- Child Discharge ED Provider: William Umaña General Adult HPI General Chief complaint: Nausea/Vomiting/Diarrhea Stated complaint: chills, vomiting,dizziness,fever,history of sepsis Time Seen by Provider: 03/21/24 03:45 Mode of Arrival: Wheelchair Source of Information: Patient Limitations: No Limitations Description of Symptoms (Recalled from ER Triage Doc. by RN): 69 M presents with c/o nausea, vomiting, and abdominal cramping that started around 0100 this date. Patient states he ate a salad around midnight, started to feel nauseated and onces he vomited he started to feel a little better. However, the abdominal cramping and nausea is concerning for him. Patient states he also feels dizzy and shakey. Patient also reports a 101 fever at home. 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 He reports that he ate a salad from [employer] and then about an hour later began vomiting severely. He felt shaky and his measured his temperature in his ear and it was reportedly 101. They concerned that he could be septic because he has been that way before. He does not usually have any symptoms when he develops urosepsis. He specifically denies any chest pain or abdominal pain. He reports chronic back pain that is not significantly different from normal. He reports that he is already feeling better by the time he arrived to the ER. Related Data Previous Rx's Medication Instructions Recorded sulfamethoxazole 800 1 tab PO BID 7 days #14 tabs 03/21/24 mg-trimethoprim 160 mg tablet Allergies Allergy/AdvReac Type Severity Reaction Status Date / Time codeine [CODEINE] Allergy Mild Verified 06/21/21 22:25 levofloxacin [From LEVAQUIN] Allergy Mild Verified 06/21/21 22:25 [facility] Disclaimer: The information contained in this section may have been updated after the patient was seen, as this information can be updated by other users. Social History (Updated 03/21/24 @ 04:52 by Eren Purvis RN) Smoking Status: Never smoker alcohol intake: never substance use type: denies use current occupational status: employed Travel in the last 8 weeks: None household members: significant other housing: house current occupation: [employer] current occupational exposures/hazards: No caffeine: Yes ROS Obtained: Yes All systems reviewed & no additional complaints except as documented Physical Exam General General appearance: alert and in no apparent distress Head Head exam: atraumatic and normocephalic Eye Eye exam: Present normal appearance, PERRL and EOMI ENT ENT exam: Present normal oropharynx and normal external ear exam Neck Neck exam: Present normal inspection and full ROM Chest Chest inspection: Present normal inspection and symmetric chest wall rise; Absent tenderness Respiratory Respiratory exam: Present normal lung sounds bilaterally; Absent respiratory distress Cardiovascular Cardiovascular exam: Present normal rhythm and tachycardia Abdominal Exam Abdominal exam: Present soft; Absent distention, tenderness or guarding Extremities Exam Extremities exam: Present normal inspection; Absent edema or joint swelling Back Exam Back exam: Present normal inspection; Absent tenderness Neurological Exam Neurological exam: Present alert and oriented X3; Absent motor sensory deficit Psychiatric Psychiatric exam: Present normal affect and normal mood Skin Skin exam: Present warm, dry and normal color Lymphatic Lymphatic Findings: no adenopathy Medical Decision Making Medical Records Medical records reviewed: Yes I reviewed the patient's medical records. Jcarlos Inquiry Pt receiving controlled substance: No Jcarlos was queried for this patient: No Vital Signs: 03/21/24 03:46 Pulse Rate [Left] 112 H Respiratory Rate 20 Blood Pressure [Right Arm] 158/86 H Blood Pressure Mean [Right Arm] 110 Blood Pressure Source [Right Arm] Automatic Cuff Blood Pressure Position [Right Arm] Sitting 02 Sat by Pulse Oximetry 95 Oxygen Delivery Method Room Air Lab Data Lab results reviewed: Yes I reviewed the patient's lab results. Lab Results 03/21/24 04:00: WBC 4.8, RBC 4.19 L, Hgb 13.8 L, Hct 41.7 L, MCV 99.3 H, MCH 32.8 H, MCHC 33.1, RDW 13.9, Plt Count 136 L, MPV 8.9, Neut % (Auto) 94.1 H, Lymph % (Auto) 3.3 L, [place] % (Auto) 1.0 L, Eos % (Auto) 1.4, Baso % (Auto) 0.2, Neut # (Auto) 4.5, Lymph # (Auto) 0.2 L, [place] # (Auto) 0.1, Eos # (Auto) 0.1, Baso # (Auto) 0.0, Total Counted 100, Neutrophils % (Manual) 93 H, Band Neutrophils % 1.0, Lymphocytes % (Manual) 4 L, Monocytes % (Manual) 2, Platelet Estimate Slight decrease, RBC Morphology Normal, Sodium 137, Potassium 4.0, Chloride 106, Carbon Dioxide 22, Anion Gap 13.0, BUN 37 H, Creatinine 1.20, Estimated Creat Clear 82, Estimated GFR 60, Est GFR ( Amer) 73, Glucose 156 H, Lactate 2.1, Calcium 9.4, Magnesium 1.6, Total Bilirubin 0.7, AST 53, ALT 46, Alkaline Phosphatase 75, Troponin I 0.02, Total Protein 7.0, Albumin 4.3, Globulin 2.7, Albumin/Globulin Ratio 1.6, Lipase 149 03/21/24 04:08: SARS-CoV-2 (PCR) Not detected, Influenza A Untype (PCR) Not detected, Influenza Type B (PCR) Not detected 03/21/24 04:20: Urine Color Yellow, Urine Appearance Slightly cloudy, Urine pH 6.0, Ur Specific [place] 1.020, Urine Protein 1+, Urine Glucose (UA) Negative, Urine Ketones Negative, Urine Blood 3+, Urine Nitrate Negative, Urine Bilirubin Negative, Urine Urobilinogen 0.2, Ur Leukocyte Esterase 2+ A, Urine RBC 20-50, Urine WBC 5-10, Urine Bacteria 1+ 03/21/24 04:00 03/21/24 04:00 Orders (Tests/Meds): ED MEDICATIONS Generic Name Dose Route Start Last Admin Trade Name Freq PRN Reason Stop Dose Admin Ceftriaxone Sodium 1 gm/ 50 mls @ 100 mls/hr 03/21/24 05:12 Sodium Chloride IV 03/21/24 05:41 ONCE ONE Discontinued Medications Generic Name Dose Route Start Last Admin Trade Name Freq PRN Reason Stop Dose Admin Acetaminophen 1,000 mg 03/21/24 03:55 03/21/24 04:26 Acetaminophen 500mg Tab PO 03/21/24 03:56 1,000 mg ONCE ONE Administration Lactated Ringer's 1,000 mls @ 999 mls/hr 03/21/24 04:00 03/21/24 04:26 Lactated Ringer's 1000 Ml Bag IV 03/21/24 05:00 999 mls/hr .Q1H1M BEBE Administration Ibuprofen 600 mg 03/21/24 03:55 03/21/24 04:26 Ibuprofen 600 Mg Tablet PO 03/21/24 03:56 600 mg ONCE ONE Administration Ondansetron HCl 4 mg 03/21/24 03:55 03/21/24 04:26 Ondansetron 4mg/2ml Vial IV 03/21/24 03:56 4 mg ONCE ONE Administration ORDERS Category Date Time Status CXR --portable [XR chest portable] Stat Exams 03/21/24 03:56 Completed XR KUB Stat Exams 03/21/24 03:55 Completed CBC w/Auto Diff [Complete Blood Count Auto Diff] Stat Lab 03/21/24 04:00 Completed CMP [Comprehensive Metabolic Panel] Stat Lab 03/21/24 04:00 Completed Lactic Acid Stat Lab 03/21/24 04:00 Completed Lipase Stat Lab 03/21/24 04:00 Completed Magnesium Stat Lab 03/21/24 04:00 Completed Rapid PCR Covid and Flu A/B Stat Lab 03/21/24 04:08 Completed Troponin I Q3H Lab 03/21/24 04:00 Completed Troponin I Q3H Lab 03/21/24 07:00 Ordered UA [Urinalysis and Microscopic] Stat Lab 03/21/24 04:20 Completed Blood Culture Stat Micro 03/21/24 04:05 Ordered Urine Culture Stat Micro 03/21/24 04:20 Received ECG Data Tracing #1: I reviewed this ECG and interpreted as documented below: Sinus tachycardia, rate of 108, no concerning ST or T wave changes. ECG initial impression date: 03/21/24 ECG initial impression time: 04:26 HEART Score History (anamnesis): Slightly suspicious ECG: Normal Age: >65 years Risk factors: 1-2 risk factors Troponin: </= normal limit HEART Score: 3 Medical Decision Narrative: 69-year-old male with history of chronic urinary retention, caths daily, history of diabetes, presents with acute onset nausea vomiting and reported fever at home after eating a salad from [employer]. Patient feels better now, no longer vomiting.. History was obtained interactive discussion with patient, family, chart review. On arrival, patient is [afebrile, hemodynamically stable, satting appropriately, alert, oriented x4, GCS 15], moving all extremities spontaneously. Full physical exam performed and significant for mild tachycardia with rate 100-110, benign abdominal exam, clear lungs bilaterally Differential includes but is not limited to food poisoning, UTI, obstruction, pneumonia, COVID, flu, pancreatitis, gastroenteritis,. Patient was given Tylenol, Zofran, 1 L fluid bolus for symptomatic management and correction of underlying abnormalities. Workup initiated including CBC CMP cath UA, urine culture, blood culture, chest x-ray, abdominal x-ray On re-evaluation, patient [remains afebrile, HD stable.] He reports that he has continued to feel better since arrival and now is completely asymptomatic. He remains mildly tachycardic. He reports that he is often tachycardic when he is in the dentist office or in the doctor's office. Laboratory workup independently interpreted by me and significant for no significant leukocytosis, normal lactate, negative troponin, negative lipase. Urinalysis shows RBCs and WBCs and 1+ blood with negative nitrates. Imaging independently interpreted by me and significant for chest x-ray without focal opacity, KUB without evidence of obstruction. See radiology read for full review of final results. Given patient history, exam and workup, patient's presentation most likely represents food poisoning. This makes the most sense given the temporal relationship to the salad eaten and the patient's complete symptomatic resolution. However, patient's presentation is complicated by his history of chronic catheterizations and his history of urosepsis for which she typically does not have any other symptoms. Family reports that they measured temperature of 101 at home. Patient has been afebrile here. Given reported fever, patient's tachycardia, and his history, we will treat his urine as a complicated UTI. Given dose of IV ceftriaxone in the ED and discharged with prescription in for Bactrim. He was given return precautions. Discharged in stable condition.. Procedures Risk/Benefits of Procedure(s) Were Explained: Yes Critical Care Critical Care Time Critical Care Time: No
[2024-03-21 04:00] VITALS: BP 142/70; PULSE 104; RESP 20; O2SAT 94
[2024-03-21 04:07] LABS: Basophils % 0.2 % (0.1-2.0); Eosinophils # 0.1 K/mm3 (0.0-0.4); Eosinophils % 1.4 % (0.1-12.0); Hematocrit 41.7 % (42.0-52.0); Hemoglobin 13.8 g/dL (14.1-18.0); Lymphocytes # 0.2 K/mm3 (0.7-4.5); Lymphocytes % 3.3 % (10-50); Mean Corpuscular HGB Conc 33.1 g/dL (31.8-35.4); Mean Corpuscular Hemoglobin 32.8 pg (27.0-31.2); Mean Corpuscular Volume 99.3 fl (80-94); Mean Platelet Volume 8.9 fl (7.4-10.4); Monocytes # 0.1 K/mm3 (0.1-1.0); Neutrophils # 4.5 K/mm3 (1.8-7.8); Neutrophils % 94.1 % (37.0-80.0); Platelet Count 136 K/mm3 (142-424); Red Blood Count 4.19 M/mm3 (4.60-6.20); Red Cell Distribution Width 13.9 % (11.5-17.5); White Blood Count 4.8 K/mm3 (4.8-10.8)
[2024-03-21 04:09] LABS: MANUAL DIFFERENTIAL MANUAL DIFFERENTIAL (MANUAL DIFF)
[2024-03-21 04:10] LABS: Chloride 106 mmol/L (98-107); Sodium 137 mmol/L (136-145)
[2024-03-21 04:11] LABS: Coronavirus 19, PCR Not Detected (NotDetected); Influenza A, PCR Not Detected (NotDetected); Influenza B, PCR Not Detected (NotDetected)
[2024-03-21 04:13] LABS: Alanine Aminotransferase 46 U/L (12-78); Albumin Level 4.3 g/dl (3.5-5.0); Albumin/Globulin Ratio 1.6 (1.1-1.8); Alkaline Phosphatase 75 U/L (38-126); Aspartate Amino Transferase 53 U/L (17-59); Bilirubin,Total 0.7 mg/dl (0.2-1.3); Blood Urea Nitrogen 37 mg/dl (9-20); Calcium 9.4 mg/dl (8.4-10.2); Carbon Dioxide 22 mmol/L (22.0-30.0); Creatinine Clearance Estimated 82 mL/min (50-200); Estimated Glomerular Filt Rate 60 ml/min (>60); GFR (African American) 73 ML/MIN (>60); Globulin 2.7 g/dL (1.3-3.2); Glucose 156 mg/dl (74-100)
[2024-03-21 04:16] LABS: Lipase 149 U/L (23-300)
[2024-03-21 04:17] LABS: Lactic Acid 2.1 mmol/L (0.7-2.1); Magnesium 1.6 mg/dl (1.6-2.3)
[2024-03-21 04:23] LABS: Microscopic, Urine URINE MICROSCOPIC (MICROSCOPIC)
[2024-03-21 04:24] LABS: Bilirubin,Urine Negative (Negative); Blood, Urine 3+ (Negative); Color,Urine YELLOW (Yellow); Glucose,Urine (UA) Negative (Negative); Ketones,Urine Negative (Negative); Leukocyte Esterase,Urine 2+ (Negative); Nitrate,Urine Negative (Negative); Protein,Urine 1+ (Negative); Urobilinogen,Urine 0.2 EU/dl (0.2)
--- NOTE | 2024-03-21 04:24 | ECG_ITS ---
APPROVED REPORT Exam: Resting ECG HR:108 bpm ECG Measurements Heart Rate 108 AXES DC 107 P -35 QRSd 87 QRS 16 QT 309 T 62 QTc 372 Conclusion SINUS TACHYCARDIA WITH SHORT DC INTERVAL ABNORMAL RHYTHM ECG UNCONFIRMED REPORT Electronically signed by : DELLA OROZCO, 03/22/2024 06:00:48
[2024-03-21 04:25] LABS: Lymphocytes % 4 % (10-50); Monocytes % 2 % (2-9); Neutrophils % 93 % (42-76); Platelet Estimate Slight Decrease; RBC Morphology Normal; Total Cells Counted 100
[2024-03-21] MEDS: IBUPROFEN 600 MG TABLET PO (04:26)
[2024-03-21] MEDS: ONDANSETRON 4MG/2ML VIAL 4 MG IV (04:26)
[2024-03-21] MEDS: ACETAMINOPHEN 500MG TAB 1000 MG PO (04:26)
[2024-03-21] MEDS: LACTATED RINGERS 1000ML 1,000 ML 999 ML IV (04:26)
[2024-03-21 04:28] LABS: Appearance,Urine Slightly Cloudy (Clear)
[2024-03-21 04:29] LABS: Troponin I 0.02 ng/ml (0.00-0.034)
[2024-03-21 04:30] VITALS: BP 116/64; PULSE 111; RESP 20; O2SAT 93
[2024-03-21 04:36] LABS: RBC,Urine 20-50 #/hpf (0-3)
[2024-03-21 04:37] LABS: Bacteria,Urine 1+ /lpf
[2024-03-21] MEDS: CEFTRIAXONE 1 GM 1 GM in 0.9 % SODIUM CHLORIDE 50 ML IV (05:20)
[2024-03-21 05:21] VITALS: BP 126/79; PULSE 108; RESP 18; O2SAT 94
[2024-03-21 05:42] VITALS: BP 116/74; PULSE 104; RESP 18; TEMP 36.9; O2SAT 95
[2024-03-21 08:04] LABS: Reflex Lactic Add Lactic Reflex
--- NOTE | 2024-03-22 09:17 | PC.NURSE ---
blood culture discussed with , pt contacted to come back for repeat blood work. Pt aware he needs to come back to the ER.
== END 2024-03-21 05:42 | disposition home or self-care (01) ==
PROVIDERS: Emergency Provider Emergency Medicine; PCP Family Medicine
DX: N39.0 Urinary tract infection, site not specified (principal); R11.10 Vomiting, unspecified; R50.9 Fever, unspecified
CPT/HCPCS: 71045; 74018; 80053; 81001; 83605; 83690; 83735; 84484; 85007; 85025; 87040; 87086; 87088; 87186; 87636; 93005; J0696; J2405

== ENCOUNTER 2024-03-22 11:04 | Inpatient (IN) | payer MEDICARE, MEDICAID, SELFPAY ==
[2024-03-22] VITALS (11 sets, daily range): BP systolic 94–208; BP diastolic 55–150; PULSE 69–78; RESP 16–22; TEMP 36.5–36.9; O2SAT 93–97; BMI 35.5; BMI 40.3
[2024-03-22 11:26] LABS: Basophils % 0.2 % (0.1-2.0); Eosinophils # 0.1 K/mm3 (0.0-0.4); Hematocrit 39.5 % (42.0-52.0); Lymphocytes # 0.6 K/mm3 (0.7-4.5); Mean Corpuscular Hemoglobin 32.8 pg (27.0-31.2); Mean Corpuscular Volume 99.4 fl (80-94); Mean Platelet Volume 9.5 fl (7.4-10.4); Monocytes # 0.5 K/mm3 (0.1-1.0); Monocytes % 4.5 % (1.7-9.3); Neutrophils # 9.4 K/mm3 (1.8-7.8); Neutrophils % 88.4 % (37.0-80.0); Platelet Count 90 K/mm3 (142-424); Red Blood Count 3.97 M/mm3 (4.60-6.20); Red Cell Distribution Width 13.9 % (11.5-17.5); White Blood Count 10.7 K/mm3 (4.8-10.8)
[2024-03-22 11:37] LABS: Chloride 103 mmol/L (98-107); Sodium 134 mmol/L (136-145)
[2024-03-22 11:38] LABS: Potassium 4.1 mmoL/L (3.5-5.1)
[2024-03-22 11:40] LABS: Alanine Aminotransferase 50 U/L (12-78); Albumin Level 3.8 g/dl (3.5-5.0); Albumin/Globulin Ratio 1.4 (1.1-1.8); Alkaline Phosphatase 92 U/L (38-126); Anion Gap 10.1 mEq/L (5-15); Aspartate Amino Transferase 48 U/L (17-59); Bilirubin,Total 1.5 mg/dl (0.2-1.3); Blood Urea Nitrogen 44 mg/dl (9-20); Calcium 8.6 mg/dl (8.4-10.2); Carbon Dioxide 25 mmol/L (22.0-30.0); Creatinine Clearance Estimated 62 mL/min (50-200); Estimated Glomerular Filt Rate 43 ml/min (>60); GFR (African American) 52 ML/MIN (>60); Globulin 2.8 g/dL (1.3-3.2); Glucose 146 mg/dl (74-100); Total Protein,Serum 6.6 g/dl (6.3-8.2)
--- NOTE | 2024-03-22 11:40 | HMH.EDGENADL ---
Discharge Plan Disposition Patient Disposition: Admitted Chief Complaint: Recheck/Abnormal Lab/Rx Clinical Impressions Clinical Impression: Bacteremia, Sepsis Discharge ED Provider: Dwayne Cartagena General Adult HPI General Chief complaint: Recheck/Abnormal Lab/Rx Stated complaint: abnormal lab Time Seen by Provider: 03/22/24 11:16 Mode of Arrival: Wheelchair Source of Information: Patient Limitations: No Limitations Description of Symptoms (Recalled from ER Triage Doc. by RN): positive blood cultures. diaphoretic, weak, temp History of Present Illness HPI narrative: 69-year-old male history of rectovesicular fistula status post repair, complicated by multiple episodes of bacteremia presenting with fevers, weakness, positive blood cultures. Was seen yesterday for the symptoms. Sent home with Bactrim given UTI. Blood cultures were positive today, so told to return to the emergency department. No new symptoms other than nausea. Please note that above description of symptoms, in this electronic medical record under categorization of recalled from ER triage doctor by RN are reflective of an initial nursing assessment, however, is not reflective of my full history and physical exam that was personally taken and clarified. Consequentially, this preceding description of symptoms, which may include the patient's categorized chief complaint in the EMR, do not reflect my personal clinical impression, and the ultimate description of history of present illness and patient stated complaints should be deferred to this section of the note. Unless stated otherwise or congruent with this section of the note, additional signs, symptoms, or incongruence should be interpreted as inaccurate with my clinical impression. Related Data Previous Rx's Medication Instructions Recorded sulfamethoxazole 800 1 tab PO BID 7 days #14 tabs 03/21/24 mg-trimethoprim 160 mg tablet Allergies Allergy/AdvReac Type Severity Reaction Status Date / Time codeine [CODEINE] Allergy Mild Verified 06/21/21 22:25 levofloxacin [From LEVAQUIN] Allergy Mild Verified 06/21/21 22:25 [facility] Disclaimer: The information contained in this section may have been updated after the patient was seen, as this information can be updated by other users. Social History (Updated 03/21/24 @ 04:52 by Eren Purvis RN) Smoking Status: Never smoker alcohol intake: never substance use type: denies use current occupational status: employed Travel in the last 8 weeks: None household members: significant other housing: house current occupation: [employer] current occupational exposures/hazards: No caffeine: Yes ROS Obtained: Yes All systems reviewed & no additional complaints except as documented Physical Exam General General appearance: alert and in no apparent distress Head Head exam: atraumatic and normocephalic Eye Eye exam: Present normal appearance, PERRL and EOMI ENT ENT exam: Present mucous membranes moist Neck Neck exam: Present normal inspection, full ROM and trachea midline Respiratory Respiratory exam: Absent respiratory distress, wheezes, stridor, accessory muscle use or prolonged expiratory phase Cardiovascular Cardiovascular exam: Present normal rhythm Abdominal Exam Abdominal exam: Present soft; Absent distention, tenderness, guarding, rebound or rigidity Extremities Exam Extremities exam: Absent edema Neurological Exam Neurological exam: Present alert, oriented X3, CN II-XII intact and normal gait; Absent motor sensory deficit Skin Skin exam: Present warm and dry; Absent diaphoresis or erythema Medical Decision Making Medical Records Medical records reviewed: Yes I reviewed the patient's medical records. Jcarlos Inquiry Pt receiving controlled substance: No Jcarlos was queried for this patient: No Vital Signs: 03/22/24 11:05 03/22/24 11:22 03/22/24 12:00 Temperature 98 F Temperature Source Oral Pulse Rate 76 75 Pulse Rate [Left] 78 Respiratory Rate 20 16 Blood Pressure 95/58 L 95/58 L Blood Pressure [Right Arm] 208/150 H Blood Pressure Mean [Right Arm] 169 Blood Pressure Source Automatic Cuff Blood Pressure Position Supine 02 Sat by Pulse Oximetry 95 93 L 93 L Oxygen Delivery Method Room Air Room Air Room Air 03/22/24 12:30 03/22/24 13:00 Temperature Temperature Source Pulse Rate 74 72 Pulse Rate [Left] Respiratory Rate Blood Pressure 96/62 L 103/68 L Blood Pressure [Right Arm] Blood Pressure Mean [Right Arm] Blood Pressure Source Blood Pressure Position 02 Sat by Pulse Oximetry 94 L 94 L Oxygen Delivery Method Room Air Room Air Lab Data Lab Results 03/22/24 11:17: WBC 10.7 D, RBC 3.97 L, Hgb 13.0 L, Hct 39.5 L, MCV 99.4 H, MCH 32.8 H, MCHC 33.0, RDW 13.9, Plt Count 90 L D, MPV 9.5, Neut % (Auto) 88.4 H, Lymph % (Auto) 6.0 L, [place] % (Auto) 4.5, Eos % (Auto) 1.0, Baso % (Auto) 0.2, Neut # (Auto) 9.4 H, Lymph # (Auto) 0.6 L, [place] # (Auto) 0.5, Eos # (Auto) 0.1, Baso # (Auto) 0.0, Total Counted 100, Neutrophils % (Manual) 89 H, Lymphocytes % (Manual) 8 L, Monocytes % (Manual) 2, Eosinophils % (Manual) 1, Platelet Estimate Slight decrease, RBC Morphology Normal, Sodium 134 L, Potassium 4.1, Chloride 103, Carbon Dioxide 25, Anion Gap 10.1, BUN 44 H, Creatinine 1.60 H D, Estimated Creat Clear 62, Estimated GFR 43 L, Est GFR ( Amer) 52 L D, Glucose 146 H, Lactate 1.7, Calcium 8.6, Total Bilirubin 1.5 H, AST 48, ALT 50, Alkaline Phosphatase 92, Total Protein 6.6, Albumin 3.8 D, Globulin 2.8, Albumin/Globulin Ratio 1.4 03/22/24 11:17 03/22/24 11:17 Orders (Tests/Meds): ED MEDICATIONS Generic Name Dose Route Start Last Admin Trade Name Freq PRN Reason Stop Dose Admin Lactated Ringer's 1,910 mls @ 955 mls/hr 03/22/24 11:42 03/22/24 11:55 Lactated Ringer's 1000 Ml Bag 30 ml/kg infuse over 2 hr (1910 ml) 03/22/24 13:41 955 mls/hr IV Administration .Q2H ONE Lactated Ringer's 1,000 mls @ 50 mls/hr 03/22/24 13:00 Lactated Ringer's 1000 Ml Bag IV 04/21/24 12:59 .Q20H BEBE Piperacillin Sod/Tazobactam 100 mls @ 200 mls/hr 03/22/24 19:00 Sod 4.5 gm/ Sodium Chloride IV 04/01/24 18:59 Q8H BEBE Discontinued Medications Generic Name Dose Route Start Last Admin Trade Name Freq PRN Reason Stop Dose Admin Piperacillin Sod/Tazobactam 100 mls @ 200 mls/hr 03/22/24 11:40 03/22/24 11:55 Sod 4.5 gm/ Sodium Chloride IV 03/22/24 12:09 200 mls/hr ONCE ONE Administration Piperacillin Sod/Tazobactam 100 mls @ 200 mls/hr 03/22/24 13:00 03/22/24 13:15 Sod 4.5 gm/ Sodium Chloride IV 04/01/24 12:59 Not Given Q8H BEBE Iopamidol 75 ml 03/22/24 12:17 03/22/24 12:17 Iopamidol-370 (76%);100ml Bottle IV 03/22/24 12:18 75 ml ONCE ONE Administration Ondansetron HCl 4 mg 03/22/24 11:42 03/22/24 11:55 Ondansetron 4mg/2ml Vial IV 03/22/24 11:43 4 mg ONCE ONE Administration Sodium Chloride 10 ml 03/22/24 12:17 03/22/24 12:17 Sodium Chloride 0.9% 10ml Syr (Rad Only) IV 03/22/24 12:18 10 ml ONCE ONE Administration ORDERS Category Date Time Status CT abdomen pelvis w con Stat Cat Scan 03/22/24 12:02 Completed CBC w/Auto Diff [Complete Blood Count Auto Diff] Stat Lab 03/22/24 11:17 Completed CMP [Comprehensive Metabolic Panel] Stat Lab 03/22/24 11:17 Completed Lactic Acid Stat Lab 03/22/24 11:17 Completed Blood Culture Stat Micro 03/22/24 11:36 Received Medical Decision Narrative: 69-year-old male history of rectovesicular fistula status post repair, complicated by multiple episodes of bacteremia presenting with fevers, weakness, positive blood cultures. Was seen yesterday for the symptoms. Sent home with Bactrim given UTI. Blood cultures were positive today, so told to return to the emergency department. No new symptoms other than nausea. History was obtained via conversation with patient. On arrival, patient hemodynamically stable, alert, oriented x4, appropriate, GCS 15, moving all extremities spontaneously, pupils equal and reactive to light. Full physical exam performed and significant for well-appearing male no acute distress. Abdomen soft, nontender, nondistended. Mildly hypotensive, nontachycardic. Differential includes sepsis, UTI, pneumonia, bacteremia, nephrolithiasis, among others. Patient was given Zosyn 4.5 g, sepsis bolus for symptomatic management and correction of underlying abnormalities. Workup independently interpreted and significant for white blood cell increased to 11 from 5 with neutrophilic predominance. LISSET with creatinine 1.6 and BUN 44. Nonactionable hematologic workup otherwise with negative lactate. CT of the abdomen pelvis without acute intra-abdominal abnormality. He does have gallstones, no secondary findings of cholecystitis. See radiology read for full review of final results. On reevaluation, patient resting comfortably bed. Primary care physician contacted case was discussed at length, patient to be admitted. Given patient presentation, workup, history, this most likely represents bacteremia and sepsis in the setting of Klebsiella bacteremia. Because patient high risk for clinical decompensation, deemed appropriate for inpatient admission. Results were relayed to patient who voiced understanding and patient was agreeable to inpatient admission and management. Patient was admitted to the hospital for further definitive management. [employer] Specialist disclaimer Much of this encounter note is an electronic salesperson furniture spoken language to printed text. Electronic salesperson furniture of the spoken language may permit errors. Although I have reviewed the note, some errors may still exist. Critical Care Critical Care Time Critical Care Time: No
[2024-03-22 11:41] LABS: Lactic Acid 1.7 mmol/L (0.7-2.1)
[2024-03-22] MEDS: PIPERACILLIN/TAZO 4.5 GM in 0.9 % SODIUM CHLORIDE 100 ML IV ×2 (11:55→20:23)
[2024-03-22] MEDS: ONDANSETRON 4MG/2ML VIAL 4 MG IV (11:55)
[2024-03-22] MEDS: LACTATED RINGERS 1000ML 1,910 ML 955 ML IV (11:55)
--- NOTE | 2024-03-22 12:02 | CT_ITS ---
PROCEDURE INFORMATION: Exam: CT Abdomen And Pelvis With Contrast Exam date and time: 03/22/2024 12:18 PM Age: 69 years old Clinical indication: Abdominal pain; Generalized; Additional info: Sepsis, UTI, sudhir, rule out stone or obstruction. HX of colon cancer TECHNIQUE: Imaging protocol: Computed tomography of the abdomen and pelvis with contrast. Radiation optimization: All CT scans at this facility use at least one of these dose optimization techniques: automated exposure control; mA and/or kV adjustment per patient size (includes targeted exams where dose is matched to clinical indication); or iterative reconstruction. Contrast material: ISOVUE; Contrast volume: 75 ml; Contrast route: IV; COMPARISON: CR XR KUB 03/21/2024 4:02 AM FINDINGS: Lungs: visualized portions of the lung bases normal. Liver: Fatty infiltration of the liver. Gallbladder and bile ducts: 2 cm gallstone. Pancreas: Normal. No ductal dilation. Spleen: Normal. No splenomegaly. Adrenal glands: Normal. No mass. Kidneys and ureters: Cortical cyst 15 mm left kidney Stomach and bowel: Prior partial resection of the sigmoid colon. Moderate amount stool within the large bowel. Appendix: Appendix normal. Intraperitoneal space: No acute intra-abdominal process. No inflammatory process. No obstruction. No free fluid within the pelvis or within the dependent portions of the peritoneum. Vasculature: Flow within the superior mesenteric artery, celiac trunk and inferior mesenteric arteries. Tortuous aorta Lymph nodes: Unremarkable. No enlarged lymph nodes. Urinary bladder: See Reproductive finding. Reproductive: Severely enlarged prostate gland. Severe thickening of the adjacent bladder with mass effect upon the base of the bladder. BPH versus prostatic mass. bladder mass is not excluded. Recommend follow-up/further evaluation. Bones/joints: Prior carroll corpectomy with strut extending from the L4 to the L2 interval. Pedicle screws and rods. Soft tissues: Soft tissues are unremarkable. IMPRESSION: 1. Severely enlarged prostate gland. Severe thickening of the adjacent bladder with mass effect upon the base of the bladder. BPH versus prostatic mass. bladder mass is not excluded. Recommend follow-up/further evaluation. 2. Prior partial resection of the sigmoid colon. 3. No acute intra-abdominal process. No inflammatory process. No obstruction. 4. No free fluid within the pelvis or within the dependent portions of the peritoneum. 5. Appendix normal. 6. Fatty infiltration of the liver. 7. 2 cm gallstone. COMMENTS: Consistent with the [employer]'s Incidental Findings Committee white paper (J Am Josue Radiol 2018): Any incidental renal lesion less than 1 cm or classified as too small to characterize, or any incidental cystic renal lesion characterized as simple-appearing, is likely benign. No follow-up imaging is recommended for these lesions per consensus recommendations based on imaging criteria.
[2024-03-22 12:17] LABS: MANUAL DIFFERENTIAL MANUAL DIFFERENTIAL (MANUAL DIFF)
[2024-03-22] MEDS: IOPAMIDOL-370 (76%);100ML BOTTLE 75 ML IV (12:17)
[2024-03-22] MEDS: SODIUM CHLORIDE 0.9% 10ML SYR (RAD ONLY) 10 ML IV (12:17)
--- NOTE | 2024-03-22 12:55 | PC.NURSE ---
Dr. Cartagena speaking with Dr. Javier
[2024-03-22 13:03] LABS: Eosinophils % 1 % (0-3); Lymphocytes % 8 % (10-50); Monocytes % 2 % (2-9); Neutrophils % 89 % (42-76); Platelet Estimate Slight Decrease; RBC Morphology Normal; Total Cells Counted 100
--- NOTE | 2024-03-22 13:16 | PC.NURSE ---
called hs for admission for pt
--- NOTE | 2024-03-22 13:40 | PC.NURSE ---
report called to Vera MIGUEL
--- NOTE | 2024-03-22 13:57 | PC.NURSE ---
PT GOING UP FOR ADMISSION
--- NOTE | 2024-03-22 13:59 | PC.NURSE ---
Pt arrived to the floor at this time via wheelchair
[2024-03-22] MEDS: LACTATED RINGERS 1000ML 1,000 ML 50 ML IV (14:00)
[2024-03-23 04:00] VITALS: BP 115/71; PULSE 80; RESP 16; TEMP 36.8; O2SAT 92; BMI 40.0
[2024-03-23] MEDS: PIPERACILLIN/TAZO 4.5 GM in 0.9 % SODIUM CHLORIDE 100 ML IV ×2 (05:53→12:35)
[2024-03-23 08:00] VITALS: BP 122/66; PULSE 85; RESP 20; TEMP 36.9; O2SAT 94
--- NOTE | 2024-03-23 08:45 | P.HP_ITS ---
History of Present Illness *Admission Date: 03/22/24 *Reason for visit:: abnormal blood culture *History of present illness: Mr. Page is a 69 year old male patient of [facility], who see Dr. Werner for his primary care. Patient was seen in [facility] ER a few day sago for acute onset of nausea, vomiting and fever. He was diagnosed with a UTI and was discharged home with oral Bactrim DS as treatment. Patient does self cath to empty his bladder. Yesterday he had multiple abnormal blood culture results so he was called to return to the ER for further evaluation and to arrange admission to [facility]. 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 At that time he had a sigmoid colon resection and partial bladder resection. He has been told in the past that his prostate is enlarged and he reports previous episodes of bacteremia. 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 [facility] Disclaimer: The information contained in this section may have been updated after the patient was seen, as this information can be updated by other users. 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 Poor compliance with medication Paroxysmal A-fib Fungal osteomyelitis Urinary tract infection Sepsis BPH (benign prostatic hyperplasia) Diabetes mellitus type 2 in obese Obesity Hyperglycemia due to type 2 diabetes mellitus Pneumonia due to COVID-19 virus Lumbar radiculopathy Osteoarthritis Fungus infection in blood Diabetes Colon cancer Surgical History (Updated 03/23/24 @ 08:56 by Juni Marie MD) S/P left colectomy H/O partial cystectomy H/O eye surgery Family History (Updated 03/22/24 @ 14:38 by Vera Garcia RN) Colon cancer Diabetes Social History (Updated 03/22/24 @ 14:38 by Vera Garcia RN) Smoking Status: Never smoker alcohol intake: never substance use type: denies use current occupational status: employed Travel in the last 8 weeks: None household members: significant other housing: house current occupation: [employer] current occupational exposures/hazards: No caffeine: Yes Review of Systems Constitutional Constitutional: Reports chills and Reports fever(s) ENT Ears, Nose, Mouth, and Throat: Denies dizziness *Cardiovascular Cardiovascular: Denies chest pain and Denies dyspnea *Respiratory Respiratory: Denies dyspnea *Gastrointestinal Gastrointestinal: Denies abdominal pain *Genitourinary Genitourinary: Reports as per HPI *Musculoskeletal Musculoskeletal: Reports back pain *Neurologic Neurologic: Denies dizziness Meds Home Medications and Allergies Home Medications Medication Instructions Recorded Confirmed Type sulfamethoxazole 800 1 tab PO BID 7 days #14 tabs 03/21/24 03/22/24 Rx mg-trimethoprim 160 mg tablet New Prescriptions to Start Prescriptions: Allergies Allergy/AdvReac Type Severity Reaction Status Date / Time codeine [CODEINE] Allergy Mild Verified 06/21/21 22:25 levofloxacin [From LEVAQUIN] Allergy Mild Verified 06/21/21 22:25 Exam Data for Last 24 hours Vital signs and Labs for Last 24 Hours: Temp Pulse Resp BP Pulse Ox O2 Del Method 98.4 F 85 20 122/66 94 L Room Air 03/23/24 08:00 03/23/24 08:00 03/23/24 08:00 03/23/24 08:00 03/23/24 08:00 03/23/24 08:00 Laboratory Results - last 24 hr 03/22/24 11:17: WBC 10.7 D, RBC 3.97 L, Hgb 13.0 L, Hct 39.5 L, MCV 99.4 H, MCH 32.8 H, MCHC 33.0, RDW 13.9, Plt Count 90 L D, MPV 9.5, Neut % (Auto) 88.4 H, Lymph % (Auto) 6.0 L, [place] % (Auto) 4.5, Eos % (Auto) 1.0, Baso % (Auto) 0.2, Neut # (Auto) 9.4 H, Lymph # (Auto) 0.6 L, [place] # (Auto) 0.5, Eos # (Auto) 0.1, Baso # (Auto) 0.0, Total Counted 100, Neutrophils % (Manual) 89 H, Lymphocytes % (Manual) 8 L, Monocytes % (Manual) 2, Eosinophils % (Manual) 1, Platelet Estimate Slight decrease, RBC Morphology Normal, Sodium 134 L, Potassium 4.1, Chloride 103, Carbon Dioxide 25, Anion Gap 10.1, BUN 44 H, Creatinine 1.60 H D, Estimated Creat Clear 62, Estimated GFR 43 L, Est GFR ( Amer) 52 L D, Glucose 146 H, Lactate 1.7, Calcium 8.6, Total Bilirubin 1.5 H, AST 48, ALT 50, Alkaline Phosphatase 92, Total Protein 6.6, Albumin 3.8 D, Globulin 2.8, Albumin/Globulin Ratio 1.4 I & O for Last 24 hours: Intake & Output 03/20/24 03/21/24 03/22/24 03/23/24 23:59 23:59 23:59 23:59 Intake Total 550 / 550 Output Total 0 / 0 0 / 0 Balance 550 / 550 0 / 0 Weight 253 lb 9.6 oz 252 lb 3.2 oz Constitutional Constitutional: no acute distress *Routine HEENT Exam Head: Present normocephalic Eye: Present EOMI and PERRL ENT: Present mucous membranes moist *Routine Neck Exam Neck: Present supple; Absent lymphadenopathy *Routine Respiratory Exam Respiratory: Present CTA bilaterally *Routine Cardiovascular Exam Cardiovascular: Present RRR *Routine Abdominal Exam Abdominal: Present soft and normoactive bowel sounds; Absent tenderness *Routine Rectal Exam Rectal:: deferred *Routine Genitalia Exam Genitalia:: deferred *Routine Extremities Exam Extremities: Absent cyanosis, clubbing or edema *Routine Skin Exam Skin: Present warm; Absent rash *Routine Neurological Exam Neurological: Present alert and oriented X3 Assessment and Plan *Assessment and plan (1) Bacteremia: Status: Acute Category: Medical Code(s): R78.81 - Bacteremia (2) Nausea & vomiting: Status: Acute Qualifiers: Vomiting type: unspecified Qualified Code(s): R11.2 - Nausea with vomiting, unspecified Category: Medical Code(s): R11.2 - Nausea with vomiting, unspecified (3) Acute UTI: Status: Acute Category: Medical Code(s): N39.0 - Urinary tract infection, site not specified (4) Atonic neurogenic bladder: Status: Acute Category: Medical Code(s): N31.2 - Flaccid neuropathic bladder, not elsewhere classified (5) Anemia: Status: Acute Category: Medical Code(s): D64.9 - Anemia, unspecified (6) LISSET (acute kidney injury): Status: Acute Category: Medical Code(s): N17.9 - Acute kidney failure, unspecified (7) Diabetes mellitus type 2 in obese: Status: Chronic Category: Medical Code(s): E11.69 - Type 2 diabetes mellitus with other specified complication; E66.9 - Obesity, unspecified (8) Thrombocytopenia: Status: Acute Category: Medical Code(s): D69.6 - Thrombocytopenia, unspecified (9) Hyponatremia: Status: Resolved Category: Medical Code(s): E87.1 - Hypo-osmolality and hyponatremia (10) Self-catheterizes urinary bladder: Status: Acute Category: Medical Code(s): Z78.9 - Other specified health status Plan Patient admitted for further evaluation and management of his current bacteremia and LISSET. Will continue Zosyn that was started in the ER, will monitor labs, await final blood culture results. Will need to establish with urology as he states he hasn't been seen in many years. Check A1c as he is currently not taking any treatment for diabetes.
[2024-03-23 11:16] LABS: POC Glucose,Bedside 187 (70-110)
[2024-03-23] MEDS: humaLOG 100 UNITS/ML 3ML VIAL (SSI) SQ ×3 (11:20→20:44)
[2024-03-23] MEDS: LACTATED RINGERS 1000ML 1,000 ML 75 ML IV (11:32)
[2024-03-23] MEDS: ERTAPENEM SODIUM 1 GM in 0.9 % SODIUM CHLORIDE 50 ML IV (14:49)
[2024-03-23 15:35] VITALS: BP 139/86; PULSE 75; RESP 18; TEMP 36.5; O2SAT 93
[2024-03-23] MEDS: ACETAMINOPHEN 325MG TAB 650 MG PO (15:55)
[2024-03-23 16:42] LABS: POC Glucose,Bedside 180 (70-110)
--- NOTE | 2024-03-23 17:18 | PC.NURSE ---
Patient has done well this shift. Complaints of headache that was treated per JAN. Tolerating room air well. Has gotten up several times throughout shift to cath himself. Blood cultures on 03/21/24 were positive for Klebsiella Pneumoniae which was resistant to Zosyn. Zosyn stopped and Ertapenem started and administered per JAN. Call light within reach.
[2024-03-23] MEDS: ONDANSETRON 4MG/2ML VIAL 4 MG IV (18:27)
[2024-03-23 20:00] VITALS: BP 128/78; PULSE 64; RESP 18; TEMP 36.6; O2SAT 97
[2024-03-23 20:54] LABS: POC Glucose,Bedside 161 (70-110)
[2024-03-24 04:00] VITALS: BP 134/77; PULSE 72; RESP 16; TEMP 36.9; O2SAT 93; BMI 39.9
--- NOTE | 2024-03-24 04:54 | PC.NURSE ---
Pt is alert and oriented x4 and currently tolerating RA well. Pt has no complaints and denies pain. Pt continues to in and out cath himself. No acute changes this shift
[2024-03-24] MEDS: LACTATED RINGERS 1000ML 1,000 ML 75 ML IV (05:37)
[2024-03-24 06:34] LABS: POC Glucose,Bedside 116 (70-110)
[2024-03-24 07:35] LABS: Basophils % 0.3 % (0.1-2.0); Eosinophils # 0.1 K/mm3 (0.0-0.4); Hematocrit 36.4 % (42.0-52.0); Hemoglobin 11.8 g/dL (14.1-18.0); Lymphocytes # 0.8 K/mm3 (0.7-4.5); Lymphocytes % 11.3 % (10-50); Mean Corpuscular HGB Conc 32.3 g/dL (31.8-35.4); Mean Corpuscular Hemoglobin 32.2 pg (27.0-31.2); Mean Corpuscular Volume 99.6 fl (80-94); Mean Platelet Volume 9.2 fl (7.4-10.4); Monocytes # 0.4 K/mm3 (0.1-1.0); Monocytes % 6.4 % (1.7-9.3); Neutrophils # 5.5 K/mm3 (1.8-7.8); Platelet Count 96 K/mm3 (142-424); Red Blood Count 3.66 M/mm3 (4.60-6.20); Red Cell Distribution Width 13.8 % (11.5-17.5); White Blood Count 6.9 K/mm3 (4.8-10.8)
[2024-03-24 07:37] LABS: Alanine Aminotransferase 29 U/L (12-78); Albumin Level 3.3 g/dl (3.5-5.0); Albumin/Globulin Ratio 1.2 (1.1-1.8); Alkaline Phosphatase 138 U/L (38-126); Anion Gap 8.2 mEq/L (5-15); Aspartate Amino Transferase 23 U/L (17-59); Bilirubin,Total 0.6 mg/dl (0.2-1.3); Blood Urea Nitrogen 18 mg/dl (9-20); Calcium 8.6 mg/dl (8.4-10.2); Carbon Dioxide 29 mmol/L (22.0-30.0); Chloride 104 mmol/L (98-107); Creatinine Clearance Estimated 112 mL/min (50-200); Estimated Glomerular Filt Rate 74 ml/min (>60); GFR (African American) 90 ML/MIN (>60); Globulin 2.8 g/dL (1.3-3.2); Glucose 117 mg/dl (74-100); Potassium 4.2 mmoL/L (3.5-5.1); Sodium 137 mmol/L (136-145); Total Protein,Serum 6.1 g/dl (6.3-8.2)
[2024-03-24 08:00] VITALS: BP 135/78; PULSE 71; RESP 18; TEMP 36.8; O2SAT 96
--- NOTE | 2024-03-24 09:03 | P.PN_ITS ---
Subjective *Date: 03/24/24 *Time: 09:03 Interval history: Patient feels much better today, headache has resolved. He is tolerating a regular diet. Medical Exam Vital signs and Labs for Last 24 Hours: Vital Signs Temp Pulse Resp BP Pulse Ox O2 Del Method 03/24/24 08:00 Room Air 03/24/24 08:00 98.3 F 71 18 135/78 96 Room Air 03/24/24 06:56 Room Air 03/24/24 05:00 Room Air 03/24/24 04:00 98.5 F 72 16 134/77 93 L Room Air 03/24/24 03:00 Room Air 03/24/24 00:34 Room Air 03/23/24 23:00 Room Air 03/23/24 21:00 Room Air 03/23/24 20:00 Room Air 03/23/24 20:00 97.8 F 64 18 128/78 97 Room Air 03/23/24 18:41 Room Air 03/23/24 16:50 Room Air 03/23/24 15:35 97.7 F 75 18 139/86 93 L Room Air 03/23/24 14:50 Room Air 03/23/24 12:35 Room Air 03/23/24 11:10 Room Air Intake and Output 03/23/24 03/24/24 03/24/24 23:59 07:59 15:59 Intake Total 800 / 2045 615 / 885 270 / 885 Output Total 0 / 0 0 / 0 0 / 0 Balance 800 / 2045 615 / 885 270 / 885 Intake: Intake, Oral Amount 240 / 510 270 / 510 Intake, Total IV Amount 800 / 1175 375 / 375 Ertapenem Sodium 1 gm In 0.9 % 50 / 50 Sodium Chloride 50 ml @ 100 mls /hr IV Q24H [facility] Rx#:[id number] Lactated Ringers 1000ML 1,000 750 / 1125 375 / 375 ml @ 75 mls/hr IV .[id number] [facility] Rx#:[id number] Output: Output, Urine Amount 0 / 0 0 / 0 0 / 0 Other: Number of Unmeasured Voids 1 1 1 Number of Bowel Movements 1 1 Weight 251 lb 4.8 oz Patient Weight 03/24/24 23:59 Weight 251 lb 4.8 oz Laboratory Results - last 24 hr 03/23/24 11:06: POC Glucose 187 H 03/23/24 16:11: POC Glucose 180 H 03/23/24 20:04: POC Glucose 161 H 03/24/24 05:35: POC Glucose 116 H 03/24/24 06:55: WBC 6.9 D, RBC 3.66 L, Hgb 11.8 L, Hct 36.4 L, MCV 99.6 H, MCH 32.2 H, MCHC 32.3, RDW 13.8, Plt Count 96 L, MPV 9.2, Neut % (Auto) 80.0, Lymph % (Auto) 11.3, [place] % (Auto) 6.4, Eos % (Auto) 2.0, Baso % (Auto) 0.3, Neut # (Auto) 5.5, Lymph # (Auto) 0.8, [place] # (Auto) 0.4, Eos # (Auto) 0.1, Baso # (Auto) 0.0, Sodium 137, Potassium 4.2, Chloride 104, Carbon Dioxide 29, Anion Gap 8.2, BUN 18 D, Creatinine 1.00 D, Estimated Creat Clear 112, Estimated GFR 74, Est GFR ( Amer) 90 D, Glucose 117 H, Calcium 8.6, Total Bilirubin 0.6, AST 23 D, ALT 29 D, Alkaline Phosphatase 138 H, Total Protein 6.1 L, Albumin 3.3 L, Globulin 2.8, Albumin/Globulin Ratio 1.2 I & O for Labs for Last 24 Hours: Intake & Output 03/21/24 03/22/24 03/23/24 03/24/24 23:59 23:59 23:59 23:59 Intake Total 550 / 550 1430 / 2045 885 / 885 Output Total 0 / 0 0 / 0 0 / 0 Balance 550 / 550 1430 / 2045 885 / 885 Weight 253 lb 9.6 oz 252 lb 3.2 oz 251 lb 4.8 oz Constitutional: Present no acute distress Respiratory: Present normal respiratory effort Cardiac: Present Reg Rate and Rhythm GI: Present normal bowel sounds; Absent tenderness Extremities: Present normal inspection and full ROM Skin: Present intact; Absent erythema Neuro: Present Grossly Intact and moves all extremities Assessment and Plan *Assessment and plan (1) Bacteremia: Status: Acute Category: Medical Code(s): R78.81 - Bacteremia (2) Nausea & vomiting: Status: Acute Qualifiers: Vomiting type: unspecified Qualified Code(s): R11.2 - Nausea with vom iting, unspecified Category: Medical Code(s): R11.2 - Nausea with vomiting, unspecified (3) Acute UTI: Status: Acute Category: Medical Code(s): N39.0 - Urinary tract infection, site not specified (4) Atonic neurogenic bladder: Status: Acute Category: Medical Code(s): N31.2 - Flaccid neuropathic bladder, not elsewhere classified (5) Anemia: Status: Acute Category: Medical Code(s): D64.9 - Anemia, unspecified (6) LISSET (acute kidney injury): Status: Acute Category: Medical Code(s): N17.9 - Acute kidney failure, unspecified (7) Diabetes mellitus type 2 in obese: Status: Chronic Category: Medical Code(s): E11.69 - Type 2 diabetes mellitus with other specified complication; E66.9 - Obesity, unspecified (8) Thrombocytopenia: Status: Acute Category: Medical Code(s): D69.6 - Thrombocytopenia, unspecified (9) Hyponatremia: Status: Resolved Category: Medical Code(s): E87.1 - Hypo-osmolality and hyponatremia (10) Self-catheterizes urinary bladder: Status: Acute Category: Medical Code(s): Z78.9 - Other specified health status (11) Klebsiella pneumoniae sepsis: Status: Acute Category: Medical Code(s): A41.4 - Sepsis due to anaerobes Plan Zosyn stopped and Invanz started yesterday. OK for discharge home today with daily Invanz for the next 8 days, plan office f/u with Dr. Werner later this week. Patient does not want a PICC line.
[2024-03-24] MEDS: ERTAPENEM SODIUM 1 GM in 0.9 % SODIUM CHLORIDE 50 ML IV (10:04)
[2024-03-24 11:54] LABS: Hemoglobin A1C 7.1 % (4.0-6.0)
--- NOTE | 2024-03-25 00:10 | P.DS_ITS ---
General Admission date:: 03/22/24 Discharge date: 03/24/24 HPI HPI HPI: Mr. Page is a 69 year old male patient of [facility], who see Dr. Werner for his primary care. Patient was seen in [facility] ER a few day sago for acute onset of nausea, vomiting and fever. He was diagnosed with a UTI and was discharged home with oral Bactrim DS as treatment. Patient does self cath to empty his bladder. Yesterday he had multiple abnormal blood culture results so he was called to return to the ER for further evaluation and to arrange admission to [facility]. 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 At that time he had a sigmoid colon resection and partial bladder resection. He has been told in the past that his prostate is enlarged and he reports previous episodes of bacteremia. 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 Hospital Course Hospital Course Hospital Course: The patient was admitted for bacteremia and acute kidney injury. Zosyn was started in the ER. His A1c was checked as he was currently not taking any treatment for his diabetes. It was felt he would also need a urologist as he had not when seen one in many years. The patient felt much better by 03/24/2024. His headache resolved and he was tolerating regular diet. His Zosyn was discontinued and he was started on Invanz. It was felt he would need Invanz for 8 days. He did not want a PICC line. He was stable to be discharged home on continued IV antibiotics. Exam Data for Last 24 hours Vital signs and Labs for Last 24 Hours: Temp Pulse Resp BP Pulse Ox O2 Del Method 98.3 F 71 18 135/78 96 Room Air 03/24/24 08:00 03/24/24 08:00 03/24/24 08:00 03/24/24 08:00 03/24/24 08:00 03/24/24 11:00 Laboratory Results - last 24 hr 03/24/24 05:35: POC Glucose 116 H 03/24/24 06:55: WBC 6.9 D, RBC 3.66 L, Hgb 11.8 L, Hct 36.4 L, MCV 99.6 H, MCH 32.2 H, MCHC 32.3, RDW 13.8, Plt Count 96 L, MPV 9.2, Neut % (Auto) 80.0, Lymph % (Auto) 11.3, [place] % (Auto) 6.4, Eos % (Auto) 2.0, Baso % (Auto) 0.3, Neut # (Auto) 5.5, Lymph # (Auto) 0.8, [place] # (Auto) 0.4, Eos # (Auto) 0.1, Baso # (Auto) 0.0, Sodium 137, Potassium 4.2, Chloride 104, Carbon Dioxide 29, Anion Gap 8.2, BUN 18 D, Creatinine 1.00 D, Estimated Creat Clear 112, Estimated GFR 74, Est GFR ( Amer) 90 D, Glucose 117 H, Hemoglobin A1c 7.1 H, Calcium 8.6, Total Bilirubin 0.6, AST 23 D, ALT 29 D, Alkaline Phosphatase 138 H, Total Protein 6.1 L, Albumin 3.3 L, Globulin 2.8, Albumin/Globulin Ratio 1.2 I & O for Last 24 hours: Intake & Output 03/22/24 03/23/24 03/24/24 03/25/24 11:59 11:59 11:59 11:59 Intake Total / 0 1954 Output Total 0 / 0 0 / 0 Balance 1954 Weight 220 lb 252 lb 3.2 oz 251 lb 4.8 oz Narrative: Constitutional Constitutional: no acute distress *Routine HEENT Exam Head: Present normocephalic Eye: Present EOMI and PERRL ENT: Present mucous membranes moist *Routine Neck Exam Neck: Present supple; Absent lymphadenopathy *Routine Respiratory Exam Respiratory: Present CTA bilaterally *Routine Cardiovascular Exam Cardiovascular: Present RRR *Routine Abdominal Exam Abdominal: Present soft and normoactive bowel sounds; Absent tenderness *Routine Rectal Exam Rectal:: deferred *Routine Genitalia Exam Genitalia:: deferred *Routine Extremities Exam Extremities: Absent cyanosis, clubbing or edema *Routine Skin Exam Skin: Present warm; Absent rash *Routine Neurological Exam Neurological: Present alert and oriented X3 Results Data Completed and Pending Labs on day of discharge: Labs from last 24 hours 03/24/24 03/24/24 06:55 05:35 WBC 6.9 D RBC 3.66 L Hgb 11.8 L Hct 36.4 L MCV 99.6 H MCH 32.2 H MCHC 32.3 RDW 13.8 Plt Count 96 L MPV 9.2 Neut % (Auto) 80.0 Lymph % (Auto) 11.3 [place] % (Auto) 6.4 Eos % (Auto) 2.0 Baso % (Auto) 0.3 Neut # (Auto) 5.5 Lymph # (Auto) 0.8 [place] # (Auto) 0.4 Eos # (Auto) 0.1 Baso # (Auto) 0.0 Sodium 137 Potassium 4.2 Chloride 104 Carbon Dioxide 29 Anion Gap 8.2 BUN 18 D Creatinine 1.00 D Estimated Creat Clear 112 Estimated GFR 74 Est GFR ( Amer) 90 D Glucose 117 H POC Glucose 116 H Hemoglobin A1c 7.1 H Calcium 8.6 Total Bilirubin 0.6 AST 23 D ALT 29 D Alkaline Phosphatase 138 H Total Protein 6.1 L Albumin 3.3 L Globulin 2.8 Albumin/Globulin Ratio 1.2 DS: Diagnosis Discharge Diagnosis (1) Bacteremia: Status: Acute Code(s): R78.81 - Bacteremia (2) Nausea & vomiting: Status: Acute Code(s): R11.2 - Nausea with vomiting, unspecified Qualifiers: Vomiting type: unspecified Qualified Code(s): R11.2 - Nausea with vomiting, unspecified (3) Acute UTI: Status: Acute Code(s): N39.0 - Urinary tract infection, site not specified (4) Atonic neurogenic bladder: Status: Acute Code(s): N31.2 - Flaccid neuropathic bladder, not elsewhere classified (5) Anemia: Status: Acute Code(s): D64.9 - Anemia, unspecified (6) LISSET (acute kidney injury): Status: Acute Code(s): N17.9 - Acute kidney failure, unspecified (7) Diabetes mellitus type 2 in obese: Status: Chronic Code(s): E11.69 - Type 2 diabetes mellitus with other specified complication; E66.9 - Obesity, unspecified (8) Thrombocytopenia: Status: Acute Code(s): D69.6 - Thrombocytopenia, unspecified (9) Hyponatremia: Status: Resolved Code(s): E87.1 - Hypo-osmolality and hyponatremia (10) Self-catheterizes urinary bladder: Status: Acute Code(s): Z78.9 - Other specified health status (11) Klebsiella pneumoniae sepsis: Status: Acute Code(s): A41.4 - Sepsis due to anaerobes Meds Home Medications and Allergies Home Medications Medication Instructions Recorded Confirmed Type Ertapenem Sodium [Invanz 1gm Vial] 100 mls/hr IV Q24H 03/24/24 Rx 1 gm New Prescriptions to Start Prescriptions: Ertapenem Sodium [Invanz 1gm Vial] 1 gm 0.9 % Sodium Chloride [Sod Chlor 0.9% 50mL bag] 50 ml 100 mls/hr IV Q24H Allergies Allergy/AdvReac Type Severity Reaction Status Date / Time codeine [CODEINE] Allergy Mild Verified 06/21/21 22:25 levofloxacin [From LEVAQUIN] Allergy Mild Verified 06/21/21 22:25 Discharge Plan Disposition Patient Disposition: Home, Self-Care Condition: Fair Discharge Order Discharge Orders: Discharge Order (Routine); Ordered 03/24/24 Ordered By: Juni Marie Follow up Plan Follow up with: Blaze Werner MD [Primary Care Provider] - 03/27/24 2:00 pm Prescriptions/Medication Reconciliation: New Ertapenem Sodium [Invanz 1gm Vial] 1 GM 0.9 % Sodium Chloride [Sod Chlor 0.9% 50mL bag] 50 ML 100 mls/hr IV Q24H Needs a total of 10 days of treatment. Ordered By: Juni Marie MD Last Taken: 03/24/24 10:04 100 mls/hr Discontinued sulfamethoxazole-trimethoprim 800-160 mg tablet 1 tab PO BID 7 Days Qty: 14 0RF Problem Reconciliation Problems Reviewed?: Yes Patient Discharge Instructions ACTIVITY: Limited activity DIET: continue same diet Patient Instructions: DI for Urinary Tract Infection (UTI), DI for Sepsis -- Adult, DI for Acute Kidney Injury, DI for Bacteremia-Adult, Catheter-Associated Urinary Tract Infection Providers Primary Care Provider: Blaze Werner Admit Provider: Rafita Javier Attending Provider: Juni Marie
== END 2024-03-24 12:16 | disposition home or self-care (01) | DRG 872 ==
LOC: ER 11:22 → 2ND 13:38
PROVIDERS: Admitting Provider Internal Medicine Adolescent Medicine; Emergency Provider Emergency Medicine; PCP Family Medicine; Visit Provider Family Medicine
DX: A41.59 Other Gram-negative sepsis (principal); N39.0 Urinary tract infection, site not specified; N17.9 Acute kidney failure, unspecified; E87.1 Hypo-osmolality and hyponatremia; N31.2 Flaccid neuropathic bladder, not elsewhere classified; D64.9 Anemia, unspecified; E11.69 Type 2 diabetes mellitus with other specified complication; E66.9 Obesity, unspecified; D69.6 Thrombocytopenia, unspecified; Z78.9 Other specified health status; N31.9 Neuromuscular dysfunction of bladder, unspecified
CPT/HCPCS: 36415; 71045; 74018; 74177; 80053; 81001; 82962; 83036; 83605; 83690; 83735; 84484; 85007; 85025; 87040; 87086; 87088; 87186; 87636; 93005; 99285; J0696; J1335; J2405; J2543; Q9967

== ENCOUNTER 2024-03-25 10:34 | Outpatient (CLI) | payer MEDICARE, MEDICAID, SELFPAY ==
[2024-03-25] MEDS: ERTAPENEM SODIUM 1 GM in 0.9 % SODIUM CHLORIDE 50 ML IV (10:49)
[2024-03-25] MEDS: SODIUM CHLORIDE 0.9% 50ML BAG 50 ML IV (10:49)
[2024-03-25 10:50] VITALS: BP 126/72; PULSE 76; RESP 18; TEMP 36.2; O2SAT 96
[2024-03-25] MEDS: ONDANSETRON 4MG ODT 4 MG SL (10:55)
[2024-03-25 11:25] VITALS: BP 128/72; PULSE 81
== END 2024-03-25 11:30 | disposition home or self-care (01) ==
LOC: INF 10:36
PROVIDERS: PCP Family Medicine; Visit Provider Family Medicine
DX: A41.4 Sepsis due to anaerobes (principal)
CPT/HCPCS: 96365; J1335

== ENCOUNTER 2024-03-26 08:49 | Outpatient (CLI) | payer MEDICARE, MEDICAID, SELFPAY ==
[2024-03-26 09:02] VITALS: BP 124/70; PULSE 69; RESP 18; O2SAT 96
[2024-03-26] MEDS: ERTAPENEM SODIUM 1 GM in 0.9 % SODIUM CHLORIDE 50 ML IV (09:02)
[2024-03-26] MEDS: 0.9 % SODIUM CHLORIDE 50 ML 100 ML IV (09:02)
[2024-03-26 09:45] VITALS: BP 124/78; PULSE 71; RESP 18; O2SAT 96
== END 2024-03-26 09:45 | disposition home or self-care (01) ==
PROVIDERS: PCP Family Medicine; Visit Provider Family Medicine
DX: A41.1 Sepsis due to other specified staphylococcus (principal)
CPT/HCPCS: 96365; J1335

== ENCOUNTER 2024-03-27 08:55 | Outpatient (CLI) | payer MEDICARE, MEDICAID, SELFPAY ==
[2024-03-27 09:20] VITALS: BP 147/80; PULSE 65; RESP 18; O2SAT 95
[2024-03-27] MEDS: ERTAPENEM SODIUM 1 GM in 0.9 % SODIUM CHLORIDE 50 ML IV (09:20)
[2024-03-27] MEDS: SODIUM CHLORIDE 0.9% 50ML BAG 50 ML IV (09:20)
[2024-03-27 10:04] VITALS: BP 134/81; PULSE 84; RESP 18; O2SAT 96
== END 2024-03-27 10:04 | disposition home or self-care (01) ==
LOC: INF 08:56
PROVIDERS: PCP Family Medicine; Visit Provider Family Medicine
DX: A41.4 Sepsis due to anaerobes (principal)
CPT/HCPCS: 96365; J1335

== ENCOUNTER 2024-03-28 08:41 | Outpatient (CLI) | payer MEDICARE, MEDICAID, SELFPAY ==
[2024-03-28 08:52] VITALS: BP 128/77; PULSE 70; RESP 18; TEMP 36.4; O2SAT 97
[2024-03-28] MEDS: ERTAPENEM SODIUM 1 GM in 0.9 % SODIUM CHLORIDE 50 ML IV (08:53)
[2024-03-28] MEDS: SODIUM CHLORIDE 0.9% 50ML BAG 50 ML IV (08:56)
[2024-03-28] MEDS: SODIUM CHLORIDE 0.9% 10ML FLUSH SYRINGE 10 ML IV (09:00)
[2024-03-28 09:37] VITALS: BP 116/63; PULSE 70; RESP 16; TEMP 36.3; O2SAT 93
== END 2024-03-28 09:37 | disposition home or self-care (01) ==
LOC: INF 08:42
PROVIDERS: PCP Family Medicine; Visit Provider Family Medicine
DX: A41.1 Sepsis due to other specified staphylococcus (principal)
CPT/HCPCS: 96365; J1335

== ENCOUNTER 2024-03-29 08:54 | Outpatient (CLI) | payer MEDICARE, MEDICAID, SELFPAY ==
[2024-03-29 08:54] VITALS: BP 116/65; PULSE 65; RESP 14; TEMP 36.6; O2SAT 96
[2024-03-29] MEDS: ERTAPENEM SODIUM 1 GM in 0.9 % SODIUM CHLORIDE 50 ML IV (09:11)
== END 2024-03-29 09:41 | disposition home or self-care (01) ==
LOC: INF 08:55
PROVIDERS: PCP Family Medicine; Visit Provider Family Medicine
DX: A41.4 Sepsis due to anaerobes (principal)
CPT/HCPCS: 96365; G0463; J1335

== ENCOUNTER 2024-03-30 09:00 | Outpatient (CLI) | payer MEDICARE, MEDICAID, SELFPAY ==
[2024-03-30 09:00] VITALS: BP 115/75; PULSE 74; RESP 16; O2SAT 95
[2024-03-30] MEDS: ERTAPENEM SODIUM 1 GM in 0.9 % SODIUM CHLORIDE 50 ML IV (09:25)
== END 2024-03-30 10:13 | disposition home or self-care (01) ==
LOC: INF 09:01
PROVIDERS: PCP Family Medicine; Visit Provider Family Medicine
DX: A41.4 Sepsis due to anaerobes (principal)
CPT/HCPCS: 96365; G0463; J1335

== ENCOUNTER 2024-03-31 09:11 | Outpatient (CLI) | payer MEDICARE, MEDICAID, SELFPAY ==
[2024-03-31 09:30] VITALS: BP 109/69; PULSE 66; RESP 18; O2SAT 96
[2024-03-31] MEDS: ERTAPENEM SODIUM 1 GM in 0.9 % SODIUM CHLORIDE 50 ML IV (09:31)
[2024-03-31 10:16] VITALS: BP 121/70; PULSE 68; RESP 18; O2SAT 98
== END 2024-03-31 23:59 | disposition home or self-care (01) ==
LOC: INF 09:12
PROVIDERS: PCP Family Medicine; Visit Provider Family Medicine
DX: A41.4 Sepsis due to anaerobes (principal)
CPT/HCPCS: 96365; J1335

== ENCOUNTER 2024-04-01 09:08 | Outpatient (CLI) | payer MEDICARE, MEDICAID, SELFPAY ==
[2024-04-01 09:20] VITALS: BP 110/68; PULSE 71; RESP 16; TEMP 36.6; O2SAT 96
[2024-04-01] MEDS: 0.9 % SODIUM CHLORIDE 50 ML 25 ML IV (09:20)
[2024-04-01] MEDS: SODIUM CHLORIDE 0.9% 10ML FLUSH SYRINGE 10 ML IV (09:20)
[2024-04-01] MEDS: ERTAPENEM SODIUM 1 GM in 0.9 % SODIUM CHLORIDE 50 ML IV (09:20)
[2024-04-01 09:41] VITALS: BMI 37.1
[2024-04-01 09:59] LABS: Microscopic, Urine URINE MICROSCOPIC (MICROSCOPIC)
[2024-04-01 10:00] VITALS: BP 116/70; PULSE 69; RESP 18; TEMP 36.6; O2SAT 97
[2024-04-01 10:02] LABS: Basophils % 0.6 % (0.1-2.0); Eosinophils # 0.1 K/mm3 (0.0-0.4); Eosinophils % 1.8 % (0.1-12.0); Hematocrit 37.4 % (42.0-52.0); Hemoglobin 12.5 g/dL (14.1-18.0); Lymphocytes # 1.2 K/mm3 (0.7-4.5); Lymphocytes % 15.3 % (10-50); Mean Corpuscular HGB Conc 33.4 g/dL (31.8-35.4); Mean Corpuscular Hemoglobin 32.1 pg (27.0-31.2); Mean Corpuscular Volume 96.3 fl (80-94); Mean Platelet Volume 8.5 fl (7.4-10.4); Monocytes # 0.3 K/mm3 (0.1-1.0); Monocytes % 3.8 % (1.7-9.3); Neutrophils # 6.1 K/mm3 (1.8-7.8); Neutrophils % 78.6 % (37.0-80.0); Platelet Count 247 K/mm3 (142-424); Red Blood Count 3.89 M/mm3 (4.60-6.20); Red Cell Distribution Width 13.7 % (11.5-17.5); White Blood Count 7.8 K/mm3 (4.8-10.8)
[2024-04-01 10:33] LABS: Appearance,Urine CLEAR (Clear); Bilirubin,Urine Negative (Negative); Blood, Urine 1+ (Negative); Color,Urine YELLOW (Yellow); Glucose,Urine (UA) Negative (Negative); Ketones,Urine Negative (Negative); Leukocyte Esterase,Urine Negative (Negative); Nitrate,Urine Negative (Negative); PH,Urine 5.5 (5.0-8.5); Protein,Urine Negative (Negative); Specific Gravity, Urine 1.025 (1.005-1.030); Urobilinogen,Urine 0.2 EU/dl (0.2)
[2024-04-01 10:48] LABS: WBC,Urine Occasional #/hpf (0-3)
[2024-04-01 10:49] LABS: Bacteria,Urine Trace /lpf; Mucus,Urine Trace /lpf
== END 2024-04-01 10:05 | disposition home or self-care (01) ==
LOC: INF 09:09
PROVIDERS: PCP Family Medicine; Visit Provider Family Medicine
DX: A41.1 Sepsis due to other specified staphylococcus (principal); N39.0 Urinary tract infection, site not specified
CPT/HCPCS: 81001; 85025; 96365; J1335